=== PATIENT | male | born 1930 | race Caucasian/White ===

== ENCOUNTER 2016-10-29 11:50 | Observation (INO) | payer OTHER, MEDICARE ==
[~2016-10-29] VITALS: Ht 170.2 cm; Wt 79.0 kg
[~2016-10-29 11:50] MED LIST: APIX2.5T PO; ATOR1TAB18 PO; BISO5TAB5 PO; CALC0.25 PO; CLOP75TA PO; FURO1TAB62 PO; ISOS30TA3 PO; LANTUS2P SQ; NOVONP2 SQ; VALS1TAB70 PO
[2016-10-29 11:59] VITALS: BP 129/66; PULSE 57; RESP 16; TEMP 97.5; O2SAT 96
--- NOTE | 2016-10-29 12:26 | PD ---
HPI Chief Complaint: Abnormal Results Time Seen by Provider: 12:10 Travel History International Travel<30 days: No Contact w/Intl Traveler<30days: No Traveled to known affect area: No History of Present Illness HPI The patient is a 86-year-old male who presents to the emergency department after he had a CT pulmonary angiogram performed at an outpatient basis that revealed a pulmonary embolism. The patient is a 1 month history of increasing shortness of breath that is worse with exertion and slightly alleviated at rest. The patient does have a history of shortness of breath secondary to chronic diastolic congestive heart failure, cardiomyopathy, COPD, chronic atrial fibrillation, and deconditioning. However, the patient states his shortness of breath has increased over the last month. The patient states he had an outpatient CT pulmonary angiogram ordered by his primary physician, Dr. Tapia, which revealed a pulmonary embolism within the left lower lobe pulmonary artery branches. The patient denies any known history of DVT or pulmonary embolism. He does have a history of atrial fibrillation and cardiomyopathy and currently takes Eliquis 2.5 mg twice a day as well as Plavix 75 mg daily. The patient denies any chest pain or new cough. He denies any edema to lower extremities. The patient denies any recent hospitalizations, surgeries, or prolonged travel in the last 3 months. PFSH Past Medical History Hx Anticoagulant Therapy: Yes Cancer: No Cardiac Catheterization: Yes (2014) Cardiovascular Problems: Yes (htn on meds, 4 vessels bypass 2004) High Cholesterol: Yes Chest Pain: No Coronary Artery Disease: Yes Diabetes: Yes (type 1) Patient Takes Glucophage: No Diminished Hearing: No Endocrine: Yes Gastrointestinal Disorders: No Glaucoma: No Genitourinary: Yes Hepatitis: No Hiatal Hernia: No Hypertension: Yes Implanted Vascular Access Dvce: No Musculoskeletal: No Neurologic: No Psychiatric: No Reproductive: No Respiratory: Yes (copd) Integumentary: No Renal Failure: Yes (STAGE III) Thyroid Disease: No Past Surgical History Cardiac Surgery: Yes ([address] dinero May 2005) Coronary Artery Bypass Graft: Yes (5 VESSEL) Eye Surgery: Yes (BILAT. CATARACT REMOVAL) Thoracic Surgery: Yes (CABG) Other Surgery: Yes Social History Alcohol Use: Yes (OCC) Tobacco Use: No Substance Use: No Allergies-Medications (Allergen,Severity, Reaction): Coded Allergies: No Known Allergies (Verified , 10/29/16) Reported Meds & Prescriptions Reported Meds & Active Scripts Active Lasix (Furosemide) 20 Mg Tab 20 Mg PO DAILY Reported Lantus Inj (Insulin Glargine) 100 Unit/Ml Inj 25 Units SQ HS Novolin N Inj (Insulin Human NPH) 100 Unit/Ml Inj 10 Units SQ DAILY@1600 Novolin N Inj (Insulin Human NPH) 100 Unit/Ml Inj 12 Units SQ DAILY Atorvastatin (Atorvastatin Calcium) 80 Mg Tab 80 Mg PO HS Valsartan 320 Mg Tab 320 Mg PO DAILY Bisoprolol (Bisoprolol Fumarate) 5 Mg Tab 5 Mg PO BID Eliquis (Apixaban) 2.5 Mg Tab 2.5 Mg PO BID Clopidogrel (Clopidogrel Bisulfate) 75 Mg Tab 75 Mg PO DAILY Calcitriol 0.25 Mcg Cap 0.25 Mcg PO DAILY Isosorbide Mononitrate ER (Isosorbide Mononitrate) 30 Mg Magdi 30 Mg PO DAILY Review of Systems Except as stated in HPI: all other systems reviewed are Neg General / Constitutional: No: Fever HENT: Positive: Lightheadedness Cardiovascular: Positive: Dyspnea on exertion, No: Chest Pain or Discomfort Respiratory: Positive: Shortness of Breath Gastrointestinal: No: Nausea, Vomiting, Abdominal Pain Musculoskeletal: No: Edema Neurologic: Positive: Dizziness Physical Exam Narrative GENERAL: Awake, alert, 86-year-old male who appears his stated age and is in no acute respiratory distress. SKIN: Warm and dry. HEAD: Atraumatic. Normocephalic. EYES: Pupils equal and round. No scleral icterus. No injection or drainage. ENT: No nasal bleeding or discharge. Mucous membranes pink and moist. NECK: Trachea midline. No JVD. CARDIOVASCULAR: Irregular, bradycardic with a heart rate in the 50s. RESPIRATORY: No accessory muscle use. Few crackles in the left base. GASTROINTESTINAL: Abdomen soft, non-tender, nondistended. No rebound tenderness. MUSCULOSKELETAL: No obvious deformities. No clubbing. No cyanosis. No edema. NEUROLOGICAL: Awake and alert. No obvious cranial nerve deficits. Motor grossly within normal limits. Normal speech. PSYCHIATRIC: Appropriate mood and affect; insight and judgment normal. Data Data Last Documented VS Vital Signs Date Time Temp Pulse Resp B/P Pulse Ox O2 Delivery O2 Flow Rate FiO2 10/29/16 13:38 47 20 142/63 95 10/29/16 11:59 97.5 Orders Act Partial Throm Time (Ptt) (10/29/16 12:19) Prothrombin Time / Inr (Pt) (10/29/16 12:19) Complete Blood Count With Diff (10/29/16 12:19) Comprehensive Metabolic Panel (10/29/16 12:19) Troponin I (10/29/16 12:19) Creatine Kinase (Cpk) (10/29/16 12:19) Electrocardiogram (10/29/16 ) Enoxaparin Inj (Lovenox Inj) (10/29/16 12:30) Labs Laboratory Tests Test 10/29/16 12:20 White Blood Count 7.6 TH/MM3 Red Blood Count 3.79 MIL/MM3 Hemoglobin 11.6 GM/DL Hematocrit 34.4 % Mean Corpuscular Volume 90.8 FL Mean Corpuscular Hemoglobin 30.5 PG Mean Corpuscular Hemoglobin 33.7 % Concent Red Cell Distribution Width 15.1 % Platelet Count 218 TH/MM3 Mean Platelet Volume 8.3 FL Neutrophils (%) (Auto) 77.5 % Lymphocytes (%) (Auto) 13.6 % Monocytes (%) (Auto) 6.7 % Eosinophils (%) (Auto) 1.6 % Basophils (%) (Auto) 0.6 % Neutrophils # (Auto) 6.0 TH/MM3 Lymphocytes # (Auto) 1.0 TH/MM3 Monocytes # (Auto) 0.5 TH/MM3 Eosinophils # (Auto) 0.1 TH/MM3 Basophils # (Auto) 0.0 TH/MM3 CBC Comment DIFF FINAL Differential Comment Prothrombin Time 12.0 SEC Prothromb Time International 1.1 RATIO Ratio Activated Partial 28.0 SEC Thromboplast Time Sodium Level 141 MEQ/L Potassium Level 4.5 MEQ/L Chloride Level 108 MEQ/L Carbon Dioxide Level 24.1 MEQ/L Anion Gap 9 MEQ/L Blood Urea Nitrogen 25 MG/DL Creatinine 1.60 MG/DL Estimat Glomerular Filtration 41 ML/MIN Rate Random Glucose 171 MG/DL Calcium Level 8.4 MG/DL Total Bilirubin 0.8 MG/DL Aspartate Amino Transf 21 U/L (AST/SGOT) Alanine Aminotransferase 34 U/L (ALT/SGPT) Alkaline Phosphatase 132 U/L Total Creatine Kinase 136 U/L Troponin I 0.03 NG/ML Total Protein 7.2 GM/DL Albumin 3.2 GM/DL [facility] Medical Decision Making Medical Screen Exam Complete: Yes Emergency Medical Condition: Yes Medical Record Reviewed: Yes Interpretation(s) CT pulmonary angiogram that was performed at [facility] imaging reveals pulmonary embolism within the left lower lobe pulmonary artery branches. Focal consolidation the left lower lobe consistent with atelectasis, infarct, or pneumonia. Small bilateral pleural effusions. Cardiomegaly and coronary artery calcifications. Nonspecific AP window and subcarinal mediastinal lymphadenopathy. Scattered fibrotic scarring within both lungs. EKG reveals atrial fibrillation with slow ventricular response. Prolonged QT interval 550 ms, however, QTC is [address] changes. Laboratory Tests Test 10/29/16 12:20 White Blood Count 7.6 TH/MM3 Red Blood Count 3.79 MIL/MM3 Hemoglobin 11.6 GM/DL Hematocrit 34.4 % Mean Corpuscular Volume 90.8 FL Mean Corpuscular Hemoglobin 30.5 PG Mean Corpuscular Hemoglobin 33.7 % Concent Red Cell Distribution Width 15.1 % Platelet Count 218 TH/MM3 Mean Platelet Volume 8.3 FL Neutrophils (%) (Auto) 77.5 % Lymphocytes (%) (Auto) 13.6 % Monocytes (%) (Auto) 6.7 % Eosinophils (%) (Auto) 1.6 % Basophils (%) (Auto) 0.6 % Neutrophils # (Auto) 6.0 TH/MM3 Lymphocytes # (Auto) 1.0 TH/MM3 Monocytes # (Auto) 0.5 TH/MM3 Eosinophils # (Auto) 0.1 TH/MM3 Basophils # (Auto) 0.0 TH/MM3 CBC Comment DIFF FINAL Differential Comment Prothrombin Time 12.0 SEC Prothromb Time International 1.1 RATIO Ratio Activated Partial 28.0 SEC Thromboplast Time Sodium Level 141 MEQ/L Potassium Level 4.5 MEQ/L Chloride Level 108 MEQ/L Carbon Dioxide Level 24.1 MEQ/L Anion Gap 9 MEQ/L Blood Urea Nitrogen 25 MG/DL Creatinine 1.60 MG/DL Estimat Glomerular Filtration 41 ML/MIN Rate Random Glucose 171 MG/DL Calcium Level 8.4 MG/DL Total Bilirubin 0.8 MG/DL Aspartate Amino Transf 21 U/L (AST/SGOT) Alanine Aminotransferase 34 U/L (ALT/SGPT) Alkaline Phosphatase 132 U/L Total Creatine Kinase 136 U/L Troponin I 0.03 NG/ML Total Protein 7.2 GM/DL Albumin 3.2 GM/DL Differential Diagnosis Differential diagnosis includes pulmonary embolism, DVT, pulmonary infarct, pleural effusion, atelectasis, cardiomyopathy, failed outpatient therapy. Narrative Course IV was established, labs are drawn and sent, and the patient was placed on cardiac telemetry monitoring and continuous pulse oximetry monitoring. Patient did have CT pulmonary angiogram performed an outpatient basis which reveals pulmonary embolism with a left lower lobe pulmonary artery branches. The patient is currently taken Eliquis 2.5 mg twice a day, subtherapeutic dose of Eliquis for pulmonary embolism DVT, however, he was taken for atrial fibrillation. The patient has had exertional shortness of breath, unsure if this is related to pulmonary embolism or underlying cardiomyopathy and pleural effusions. Therefore, the patient was covered with Lovenox 1 mg/kg subcutaneous until labs were obtained, weight was 79 kg, therefore, patient was administered 80 mgs intravenously. The patient's creatinine is mildly elevated at 1.6, GFR is 41. The patient may need an increase in his Eliquis, however, he does have underlying renal insufficiency versus an IVC filter placement as he has been on Eliquis. Therefore, the hospitalist were paged at 1:11 PM. I discussed the patient Dr. Campbell who states the patient's ages over 80 and he has elevated creatinine, is not ideal candidate to be on the full dose of Eliquis for pulmonary embolism/DVT. She recommends discussing the patient with the on-call gravity prospecting supervisor. Therefore, the on-call gravity prospecting supervisor was paged at 1: 19 PM. I had a discussion with Dr. Good who recommends placing the patient on a heparin drip and then bridging to Coumadin. The patient did receive Lovenox in the emergency department, therefore, he recommends not starting heparin for approximately 10 hours and bridging to Coumadin. A call was placed back to Dr. Campbell at 1:47 PM. Physician Communication Physician Communication [facility] were paged for admission. Diagnosis Primary Impression: Pulmonary embolism Qualified Code: I26.99 - Other pulmonary embolism without acute cor pulmonale , unspecified chronicity Admitting Information Admitting Physician Requests: Admit Condition: Stable August Heredia MD Oct 29, 2016 12:26
[2016-10-29] MEDS ORDERED: ENOXAPARIN SODIUM 80 MG/0.8 ML SYRINGE SQ ONE (12:30)
[2016-10-29 12:32] LABS: BASOPHIL % 0.6 % (0.0-2.0); EOSINOPHIL # 0.1 TH/MM3 (0-0.4); EOSINOPHIL % 1.6 % (0.0-4.0); HEMATOCRIT 34.4 % (39.0-51.0); HEMO FLAGS DIFF FINAL; LYMPH % 13.6 % (9.0-44.0); MEAN CELL VOLUME 90.8 FL (80.0-100.0); MEAN CORPUSCULAR HEMOGLOBIN 30.5 PG (27.0-34.0); MEAN CORPUSCULAR HGB CONC 33.7 % (32.0-36.0); MONO % 6.7 % (0.0-8.0); NEUT % 77.5 % (16.0-70.0); PLATELET COUNT 218 TH/MM3 (150-450); RED BLOOD COUNT 3.79 MIL/MM3 (4.50-5.90); RED CELL DISTRIBUTION WIDTH 15.1 % (11.6-17.2); WHITE BLOOD COUNT 7.6 TH/MM3 (4.0-11.0)
[2016-10-29 12:44] VITALS: BP 140/71; PULSE 47; RESP 20; O2SAT 96
[2016-10-29 12:45] LABS: CHLORIDE 108 MEQ/L (98-107); POTASSIUM 4.5 MEQ/L (3.5-5.1); SODIUM (NA) 141 MEQ/L (136-145)
[2016-10-29 12:49] LABS: INTERNATIONAL NORMALIZED RATIO 1.1 RATIO
[2016-10-29 12:52] LABS: ANION GAP 9 MEQ/L (5-15); BICARBONATE 24.1 MEQ/L (21.0-32.0); BLOOD UREA NITROGEN 25 MG/DL (7-18)
[2016-10-29 12:55] LABS: ALT (GPT) 34 U/L (12-78); AST (GOT) 21 U/L (15-37); GLOMERULAR FILTRATION RATE 41 ML/MIN (>89)
[2016-10-29 12:57] LABS: TOTAL BILIRUBIN ADULT 0.8 MG/DL (0.2-1.0)
[2016-10-29 12:58] LABS: ALKALINE PHOSPHATASE 132 U/L (45-117); CREATINE KINASE 136 U/L (39-308)
[2016-10-29 13:38] VITALS: BP 142/63; PULSE 47; RESP 20; O2SAT 95
[2016-10-29 14:33] VITALS: BP 141/62; PULSE 44; RESP 20; O2SAT 95
--- NOTE | 2016-10-29 15:13 | HHI.HP ---
[facility] Service [facility] Primary Care Physician Angelito Tapia MD Admission Diagnosis pulmonary embolism, chronic renal insufficiency Diagnoses: (1) Pulmonary embolism (2) Chronic kidney disease, stage 3 Travel History International Travel<30 Days: No Contact w/Intl Traveler <30 Da: No Traveled to Known Affected Are: No History of Present Illness This is a pleasant 86 year-old male with past medical history of coronary artery disease status post CABG, chronic kidney disease, who presents to the ER last night on the advice of his primary care physician. Apparently the patient had been having progressive dyspnea over the past month and an outpatient CTA was ordered which showed a pulmonary embolism at the left lower lobe pulmonary artery branches. The patient is stable on room air. He takes Eliquis 2.5 mg by mouth twice a day as an outpatient. He is also on Plavix. He does note that he has chronic swelling in his right lower extremity and that he takes a water pill for this. Otherwise denies hemoptysis. 10 point review systems otherwise negative. His entry clerk is Dr. Frazier. His heart rate in the ER is in the mid 50s. He is on Coreg. Review of Systems Constitutional: DENIES: Fever, Chills Ears, nose, mouth, throat: DENIES: Throat pain, Hoarseness Respiratory: COMPLAINS OF: Shortness of breath, DENIES: Cough Cardiovascular: COMPLAINS OF: Dyspnea on Exertion, Lower Extremity Edema, DENIES: Chest pain Gastrointestinal: DENIES: Nausea, Vomiting Genitourinary: DENIES: Hematuria Musculoskeletal: DENIES: Stiffness, Joint Swelling Integumentary: DENIES: Rash Hematologic/lymphatic: DENIES: Lymphadenopathy Neurologic: DENIES: Abnormal gait Psychiatric: DENIES: Anxiety, Confusion Past Family Social History Past Medical History Coronary artery disease Peripheral vascular disease Hypertension Hyperlipidemia Stage III CKD Paroxysmal atrial fibrillation Chronic Diastolic CHF Past Surgical History Cardiac catheterization 10-21-15 after abnormal nuclear study. Ablation for A. fib and atrial tach was performed. 5 vessel CABG, May 2005. PVD surgery right foot Bilateral cataract removal Allergies: Coded Allergies: No Known Allergies (Verified , 10/29/16) Family History Reviewed and noncontributory Social History He smoked briefly 60 years ago Physical Exam Vital Signs Vital Signs Date Time Temp Pulse Resp B/P Pulse Ox O2 Delivery O2 Flow Rate FiO2 10/29/16 14:33 44 20 141/62 95 10/29/16 13:38 47 20 142/63 95 10/29/16 12:44 47 20 140/71 96 10/29/16 11:59 97.5 57 16 129/66 96 Physical Exam GENERAL: Well-nourished, well-developed very pleasant elderly male patient. SKIN: Warm and dry. HEAD: Normocephalic. EYES: No scleral icterus. No injection or drainage. NECK: Supple, trachea midline. No JVD or lymphadenopathy. CARDIOVASCULAR: Regular rate and rhythm without murmurs, gallops, or rubs. RESPIRATORY: Breath sounds equal bilaterally. No accessory muscle use. GASTROINTESTINAL: Abdomen soft, non-tender, nondistended. EXTREMITIES: Trace pedal edema. NEUROLOGICAL: Awake, alert, and oriented x 3. Non-focal. Laboratory Laboratory Tests Test 10/29/16 12:20 White Blood Count 7.6 Red Blood Count 3.79 Hemoglobin 11.6 Hematocrit 34.4 Mean Corpuscular Volume 90.8 Mean Corpuscular Hemoglobin 30.5 Mean Corpuscular Hemoglobin 33.7 Concent Red Cell Distribution Width 15.1 Platelet Count 218 Mean Platelet Volume 8.3 Neutrophils (%) (Auto) 77.5 Lymphocytes (%) (Auto) 13.6 Monocytes (%) (Auto) 6.7 Eosinophils (%) (Auto) 1.6 Basophils (%) (Auto) 0.6 Neutrophils # (Auto) 6.0 Lymphocytes # (Auto) 1.0 Monocytes # (Auto) 0.5 Eosinophils # (Auto) 0.1 Basophils # (Auto) 0.0 CBC Comment DIFF FINAL Differential Comment Prothrombin Time 12.0 Prothromb Time International 1.1 Ratio Activated Partial 28.0 Thromboplast Time Sodium Level 141 Potassium Level 4.5 Chloride Level 108 Carbon Dioxide Level 24.1 Anion Gap 9 Blood Urea Nitrogen 25 Creatinine 1.60 Estimat Glomerular Filtration 41 Rate Random Glucose 171 Calcium Level 8.4 Total Bilirubin 0.8 Aspartate Amino Transf 21 (AST/SGOT) Alanine Aminotransferase 34 (ALT/SGPT) Alkaline Phosphatase 132 Total Creatine Kinase 136 Troponin I 0.03 Total Protein 7.2 Albumin 3.2 Result Diagram: 1/5/17 1220 10/29/16 1220 Assessment and Plan Assessment and Plan Pulmonary embolism in the right lower lobe. We'll observe the patient overnight. His renal function has been stable reviewing his records and he can be treated with Lovenox and Coumadin. Unfortunately he cannot be treated with the higher dose of Eliquis due to his age and renal function. Patient is stable on room air. Coronary artery disease - will hold his beta kadie as his pulse is running slightly low. Peripheral vascular disease - will discuss blood thinners with his entry clerk Dr. Frazier tomorrow as the patient is on Plavix and will now be on Coumadin. Hypertension - hold beta kadie as above. Hyperlipidemia Stage III CKD - repeat BMP in the morning. Paroxysmal atrial fibrillation - currently in sinus rhythm although rate is running slow. We'll hold bisoprolol. Continue telemetry. Coumadin as above. Chronic Diastolic CHF - continue Lasix. Problem Qualifiers (1) Pulmonary embolism: Qualified Code: I26.99 - Other pulmonary embolism without acute cor pulmonale, unspecified chronicity Katharine Campbell MD Oct 29, 2016 15:13
[2016-10-29] MEDS ORDERED: MAGNESIUM HYDROXIDE SUSP 30 ML CUP PO PRN (15:15)
[2016-10-29] MEDS ORDERED: SODIUM CHLORIDE 0.9% FLUSH 5 ML FLUSH FLUSH PRN (15:15)
[2016-10-29] MEDS ORDERED: ONDANSETRON HCL 4 MG/2 ML VIAL IVP PRN (15:15)
[2016-10-29] MEDS ORDERED: ACETAMINOPHEN 325 MG TAB PO PRN (15:15)
[2016-10-29] MEDS ORDERED: NALOXONE HCL 0.4 MG/ML AMP IV PRN (15:15)
[2016-10-29] MEDS ORDERED: DEXTROSE 50% IN WATER 50 ML VIAL(D50) IV PUSH PRN (15:15)
[2016-10-29] MEDS ORDERED: GLUCAGON 1 MG/ML VIAL OTHER PRN (15:15)
[2016-10-29] MEDS: INSULIN ASPART SUPPLEMENTAL SCALE SQ SCH ×2 (16:00→20:58)
[2016-10-29] MEDS ORDERED: WARFARIN SOD 2.5 MG TAB PO SCH (16:00)
[2016-10-29 17:23] VITALS: BP 162/75; PULSE 56; RESP 18; TEMP 97; O2SAT 96
[2016-10-29 20:00] VITALS: BP 130/66; PULSE 52; PULSE 53; RESP 20; TEMP 96.9; O2SAT 94
[2016-10-29] MEDS: SODIUM CHLORIDE 0.9% FLUSH 5 ML FLUSH FLUSH SCH (21:00)
[2016-10-29] MEDS ORDERED: ATORVASTATIN 40 MG TAB PO SCH (21:00)
[2016-10-30] VITALS: BP 140/80; PULSE 55; RESP 20; TEMP 96.9; O2SAT 93
[2016-10-30] MEDS: ENOXAPARIN SODIUM 80 MG/0.8 ML SYRINGE SQ SCH ×2 (00:20→11:44)
[2016-10-30 04:00] VITALS: BP 136/68; PULSE 55; RESP 20; TEMP 95.7; O2SAT 94
[2016-10-30 05:39] LABS: POTASSIUM 4.7 MEQ/L (3.5-5.1)
[2016-10-30 05:43] LABS: BICARBONATE 26.4 MEQ/L (21.0-32.0)
[2016-10-30] MEDS: INSULIN ASPART SUPPLEMENTAL SCALE SQ SCH ×2 (06:14→11:44)
[2016-10-30 08:00] VITALS: BP 178/80; PULSE 53; PULSE 60; RESP 16; TEMP 97.9; O2SAT 94
[2016-10-30] MEDS: SODIUM CHLORIDE 0.9% FLUSH 5 ML FLUSH FLUSH SCH (08:42)
[2016-10-30] MEDS ORDERED: CALCITRIOL 0.25 MCG CAP PO SCH (09:00)
[2016-10-30] MEDS ORDERED: VALSARTAN 160 MG TAB PO SCH (09:00)
[2016-10-30] MEDS ORDERED: FUROSEMIDE 20 MG TAB PO SCH (09:00)
[2016-10-30] MEDS ORDERED: ISOSORBIDE MONONITRATE 30 MG TAB PO SCH (09:00)
[2016-10-30] MEDS ORDERED: ENOX80P SQ (09:53)
[2016-10-30] MEDS ORDERED: COUM5TAB PO (09:53)
[2016-10-30 10:04] LABS: INTERNATIONAL NORMALIZED RATIO 1.1 RATIO; PROTHROMBIN TIME - PATIENT 12.1 SEC (9.8-11.6)
--- NOTE | 2016-10-30 11:49 | HHI.PR ---
Subjective Remarks Patient doing well, does not have dyspnea. HR in 50s. No lightheadedness or dizziness. Pt's son has factor V leiden and pt states he has 1 copy of the gene. Objective Vitals Vital Signs Date Time Temp Pulse Resp B/P Pulse Ox O2 Delivery O2 Flow Rate FiO2 10/30/16 08:00 97.9 53 16 178/80 94 10/30/16 08:00 60 10/30/16 04:00 95.7 55 20 136/68 94 10/30/16 00:00 96.9 55 20 140/80 93 10/29/16 20:00 53 10/29/16 20:00 96.9 52 20 130/66 94 10/29/16 17:23 97.0 56 18 162/75 96 10/29/16 14:33 44 20 141/62 95 10/29/16 13:38 47 20 142/63 95 10/29/16 12:44 47 20 140/71 96 10/29/16 11:59 97.5 57 16 129/66 96 I/O 10/29/16 10/29/16 10/29/16 10/30/16 10/30/16 10/30/16 07:00 15:00 23:00 07:00 15:00 23:00 Intake Total 258 ml 480 ml Output Total 300 ml 300 ml Balance -42 ml 180 ml Intake Oral 258 ml 480 ml Output Urine Total 300 ml 300 ml # Voids 1 # Bowel Movements 0 0 Result Diagram: 10/29/16 1220 10/30/16 0515 Objective Remarks GENERAL: Well-nourished, well-developed pleasant elderly CM patient in NAD SKIN: Warm and dry. HEAD: Normocephalic. EYES: No scleral icterus. No injection or drainage. NECK: Supple, trachea midline. No JVD or lymphadenopathy. CARDIOVASCULAR: irregular rate and rhythm without murmurs, gallops, or rubs. RESPIRATORY: Breath sounds equal bilaterally. No accessory muscle use. GASTROINTESTINAL: Abdomen soft, non-tender, nondistended. EXTREMITIES: No cyanosis, or edema. NEUROLOGICAL: Awake, alert, and oriented x 3. Non-focal. A/P Problem List: (1) Pulmonary embolism ICD Code: I26.99 Status: Acute (2) Chronic kidney disease, stage 3 ICD Code: N18.3 Status: Acute Assessment and Plan -Pulmonary embolism in the right lower lobe. Patient previously on Eliquis 2.5 mg by mouth twice a day for history of A. fib. Patient has been stable overnight. His renal function has been stable reviewing his records and he can be treated with Lovenox and Coumadin. I discussed this with his primary care physician Dr. Tapia who has agreed to follow the INRs. Patient is comfortable injecting his Lovenox. -Coronary artery disease - DC beta kadie as his pulse is running low. Start on baby aspirin. -Peripheral vascular disease -DC Plavix and start on baby aspirin. -Hypertension - hold beta kadie as above. -Hyperlipidemia -Stage III CKD -stable on repeat BMP today. -Paroxysmal atrial fibrillation - patient had EKG showing A. fib in the ER. The patient had an ablation one year ago with Dr. Casey. I discussed the patient with Dr. Rodriguez and let him know about the bradycardia. Dr. Rodriguez recommends the patient go on amiodarone 200 mg and to DC that bisoprolol. Currently in sinus rhythm although rate is running slow. We'll hold bisoprolol. Continue telemetry. Coumadin as above. -Type 2 diabetes. Somehow patient is on both Levemir and NPH at home. His tells me that the NPH is too expensive and so the [facility] prescribed him Lantus. I discussed with PCP Dr. Tapia who wants the patient to be only on one type of insulin. Discussed with via phone that patient should be on only 10 units of Lantus at night and to DC the novolin. -Chronic Diastolic CHF - continue Lasix. Discharge home today. Follow-up with PCP next week. Problem Qualifiers (1) Pulmonary embolism: Qualified Code: I26.99 - Other pulmonary embolism without acute cor pulmonale, unspecified chronicity Katharine Campbell MD Oct 30, 2016 11:49
[2016-10-30] MEDS ORDERED: ASPI81TA11 PO (11:50)
[2016-10-30] MEDS ORDERED: AMIO200T PO (11:50)
[2016-10-30 12:00] VITALS: BP 168/78; PULSE 60; RESP 16; TEMP 98; O2SAT 99
[2016-10-30] MEDS ORDERED: AMIODARONE 200 MG TAB PO SCH (12:00)
--- NOTE | 2016-10-30 12:23 | HHI.DCPOC ---
Discharge Care Plan Diagnosis: (1) Pulmonary embolism (2) Atrial fibrillation Goals to Promote Your Health * To prevent worsening of your condition and complications * To maintain your health at the optimal level Directions to Meet Your Goals STOP taking elilquis and bisoprolol. START taking amiodarone and lovenox injections. CALL Dr. Grey's office and Dr. Casey's office for appointments to be seen next week. GO TO the lab to get your blood drawn for coumadin level ("PT/INR")n Wednesday. DO NOT START TAKING coumadin until WednesdayNov 02. CALL Dr. Tapia for any questions. Katharine Campbell MD Oct 30, 2016 12:23
--- NOTE | 2016-10-30 14:34 | EKG ---
Date Performed: 10/29/2016 Time Performed: 12:25:58 PTAGE: 86 years EKG: Atrial fibrillation with slow ventricular response Prolonged QT interval Septal and lateral ST-T changes are nonspecific Abnormal ECG PREVIOUS TRACING : 10/23/2016 16.17 Since previous tracing, no significant change noted DOCTOR: Yaa Olson Interpretating Date/Time 10/30/2016 14:24:42
[2016-10-30] MEDS ORDERED: LANTUS2P SQ (15:55)
[2016-10-30] MEDS ORDERED: WARFARIN SOD 7.5 MG TAB PO ONE (16:00)
[2016-10-31] MEDS ORDERED: WARFARIN SOD 2.5 MG TAB PO SCH (16:00)
[2017-04-18] MEDS ORDERED: CEPH-459 PO (17:35)
[2017-04-18] MEDS ORDERED: NORC5TAB PO (17:35)
== END 2016-10-30 15:03 | disposition home or self-care (01) ==
LOC: PHED 11:50 → PHEDA 14:31 → INTOOBSV 14:31 → PH3B 15:42
PROVIDERS: ADMIT Family Medicine; ATTEND Family Medicine
DX: I26.99 Other pulmonary embolism without acute cor pulmonale (principal); I48.0 Paroxysmal atrial fibrillation; I48.2 Chronic atrial fibrillation; I42.9 Cardiomyopathy, unspecified; I13.0 Hypertensive heart and chronic kidney disease with heart failure and stage 1 through stage 4 chronic kidney disease, or unspecified chronic kidney disease; I50.32 Chronic diastolic (congestive) heart failure; I25.10 Atherosclerotic heart disease of native coronary artery without angina pectoris; I73.9 Peripheral vascular disease, unspecified; N18.3 Chronic kidney disease, stage 3 (moderate); J44.9 Chronic obstructive pulmonary disease, unspecified; E78.5 Hyperlipidemia, unspecified; E10.22 Type 1 diabetes mellitus with diabetic chronic kidney disease; R06.02 Shortness of breath; R60.1 Generalized edema; Z79.01 Long term (current) use of anticoagulants; Z79.4 Long term (current) use of insulin; Z95.1 Presence of aortocoronary bypass graft
CPT/HCPCS: 80048; 80053; 82550; 82948; 84484; 85025; 85610; 85730; 93005; 96372; 99284; G0378; J1650; J1815

== ENCOUNTER 2016-11-11 13:06 | Observation (INO) | payer MEDICARE, OTHER ==
[2016-11-11] VITALS (7 sets, daily range): BP systolic 114–150; BP diastolic 53–71; PULSE 66–73; RESP 18; TEMP 98.3–98.9; O2SAT 96–99
[~2016-11-11] VITALS: Ht 170.2 cm; Wt 76.6 kg
[~2016-11-11 13:06] MED LIST changes: +AMIO200T PO; -APIX2.5T PO; +ASPI81TA11 PO; -BISO5TAB5 PO; -CLOP75TA PO; +COUM5TAB PO; +ENOX80P SQ; -NOVONP2 SQ
--- NOTE | 2016-11-11 17:31 | RADHPO ---
EXAM DATE/TIME: 11/11/2016 17:19 [facility] COMPARISON: CHEST SINGLE AP, October 23, 2016, 16:21. INDICATIONS : Cough, shortness of breath for 3 days MEDICAL HISTORY : Cardiovascular disease. Blood clots in lungs SURGICAL HISTORY : CABG. ENCOUNTER: Initial ACUITY: 3 days PAIN SCORE: 0/10 LOCATION: Bilateral chest FINDINGS: PA lateral views of the chest demonstrate stable postsurgical changes related to prior CABG. Stable l arge left-sided pleural effusion. Given the stability from the prior exam this may be loculated. Righ t hemithorax is clear. Heart size is mildly enlarged. CONCLUSION: Stable exam. Given the stability of the left-sided pleural effusion this may be loculated.. Jessie Green MD on November 11, 2016 at 17:29 Board Certified Radiologist. This report was verified electronically.
[2016-11-11 17:59] LABS: AUTOMATED NEUTROPHIL # 5.8 TH/MM3 (1.8-7.7); BASOPHIL # 0.1 TH/MM3 (0-0.2); EOSINOPHIL # 0.1 TH/MM3 (0-0.4); EOSINOPHIL % 1.1 % (0.0-4.0); HEMATOCRIT 34.3 % (39.0-51.0); HEMO FLAGS DIFF FINAL; LYMPH % 15.4 % (9.0-44.0); LYMPHOCYTE # 1.3 TH/MM3 (1.0-4.8); MEAN CORPUSCULAR HEMOGLOBIN 30.2 PG (27.0-34.0); MEAN CORPUSCULAR HGB CONC 32.5 % (32.0-36.0); MONO % 11.4 % (0.0-8.0); NEUT % 71.1 % (16.0-70.0); PLATELET COUNT 265 TH/MM3 (150-450); RED BLOOD COUNT 3.69 MIL/MM3 (4.50-5.90); WHITE BLOOD COUNT 8.2 TH/MM3 (4.0-11.0)
[2016-11-11] MEDS ORDERED: LANTUS2P SQ (18:00)
[2016-11-11] MEDS ORDERED: NOVORP2 SQ (18:00)
--- NOTE | 2016-11-11 18:01 | PD ---
HPI Chief Complaint: Respiratory Symptoms Time Seen by Provider: 16:59 Travel History International Travel<30 days: No Contact w/Intl Traveler<30days: No Traveled to known affect area: No History of Present Illness HPI 86-year-old male presents with cough and dyspnea on exertion. He states that he was here recently with a blood clot and stopped his Lovenox on the 14th of this month sentences INR level was 2.1 then. He states the last time he had it checked was yesterday and it was 2.6 on his Coumadin. He states he called his primary care physician who advised him to come here for further care. He states he feels worse when he moves around. He denies other modifying factors. He denies any chest pain or other concurrent complaints. Quality is hard to catch breath with movement. Severity is worsening. Duration is couple of days. PFSH Past Medical History Hx Anticoagulant Therapy: Yes (WARFARIN) Asthma: No Heart Rhythm Problems: Yes (afib) Cancer: No Cardiac Catheterization: Yes (2014) Cardiovascular Problems: Yes (htn on meds, 4 vessels bypass 2004) High Cholesterol: Yes Chest Pain: No Congestive Heart Failure: Yes COPD: Yes Coronary Artery Disease: Yes Diabetes: Yes (type 1) Patient Takes Glucophage: No Diminished Hearing: No Endocrine: Yes Gastrointestinal Disorders: No GERD: No Glaucoma: No Genitourinary: Yes Hepatitis: No Hiatal Hernia: No Hypertension: Yes Implanted Vascular Access Dvce: Yes Kidney Stones: No Musculoskeletal: No Neurologic: No Psychiatric: No Reproductive: No Respiratory: Yes (copd) Integumentary: No Renal Failure: Yes (STAGE III) Sickle Cell Disease: No Sleep Apnea: No Thyroid Disease: No Ulcer: No Past Surgical History Abdominal Surgery: No Body Medical Devices: stent in right leg Cardiac Surgery: Yes ([address] dinero May 2005) Coronary Artery Bypass Graft: Yes (5 VESSEL) Eye Surgery: Yes (BILAT. CATARACT REMOVAL) Genitourinary Surgery: No Neurologic Surgery: No Thoracic Surgery: Yes (CABG) Other Surgery: Yes Social History Alcohol Use: Yes (OCC) Tobacco Use: No (quit 60 years ago) Substance Use: No Allergies-Medications (Allergen,Severity, Reaction): Coded Allergies: No Known Allergies (Verified , 10/29/16) Reported Meds & Prescriptions Reported Meds & Active Scripts Active Amiodarone (Amiodarone HCl) 200 Mg Tab 200 Mg PO DAILY Aspirin EC (Aspirin) 81 Mg Tabdr 81 Mg PO DAILY Coumadin (Warfarin) 5 Mg Tab 5 Mg PO DAILY START ON Wednesday11/02/2016 Reported Novolin R Inj (Insulin Human Regular) 1,000 Unit/10 Ml Vial 5 Units SQ TIDAC Lantus Inj (Insulin Glargine) 1,000 Unit/10 Ml Vial 23 Units SQ AC BREAKFAST Atorvastatin (Atorvastatin Calcium) 80 Mg Tab 80 Mg PO HS Valsartan 320 Mg Tab 320 Mg PO DAILY Calcitriol 0.25 Mcg Cap 0.25 Mcg PO DAILY Isosorbide Mononitrate ER (Isosorbide Mononitrate) 30 Mg Magdi 30 Mg PO DAILY Review of Systems Except as stated in HPI: all other systems reviewed are Neg Physical Exam Narrative GENERAL: Well-nourished, well-developed patient. SKIN: Warm and dry. HEAD: Normocephalic and atraumatic. EYES: No injection or drainage. ENT: No nasal drainage noted. NECK: Supple, trachea midline. CARDIOVASCULAR: irregular rate and rhythm RESPIRATORY: Breath sounds equal bilaterally at apices. No accessory muscle use. GASTROINTESTINAL: Abdomen soft, non-tender, nondistended. EXTREMITIES: No edema. NEUROLOGICAL: Awake and alert. Motor and sensory grossly within normal limits. Normal speech. Data Data Last Documented VS Vital Signs Date Time Temp Pulse Resp B/P Pulse Ox O2 Delivery O2 Flow Rate FiO2 11/11/16 17:52 99 Room Air 11/11/16 13:23 98.3 73 18 150/71 Orders Complete Blood Count With Diff (11/11/16 17:10) Basic Metabolic Panel (Bmp) (11/11/16 17:10) B-Type Natriuretic Peptide (11/11/16 17:10) Chest, Pa & Lat (11/11/16 ) Electrocardiogram (11/11/16 ) Iv Access Insert/Monitor (11/11/16 17:10) Ecg Monitoring (11/11/16 17:10) Oximetry (11/11/16 17:10) Ct Thorax/ Chest Wo Iv Contras (11/11/16 ) Prothrombin Time / Inr (Pt) (11/11/16 17:51) Act Partial Throm Time (Ptt) (11/11/16 17:51) Blood Culture (11/11/16 18:44) Sodium Chloride 0.9% Flush (Ns Flush) (11/11/16 18:45) Ceftriaxone Inj (Rocephin Inj) (11/11/16 18:45) Azithromycin Inj (Zithromax Inj) (11/11/16 18:45) Admit Order (Ed Use Only) (11/11/16 19:12) Labs Laboratory Tests Test 11/11/16 17:50 White Blood Count 8.2 TH/MM3 Red Blood Count 3.69 MIL/MM3 Hemoglobin 11.1 GM/DL Hematocrit 34.3 % Mean Corpuscular Volume 93.0 FL Mean Corpuscular Hemoglobin 30.2 PG Mean Corpuscular Hemoglobin 32.5 % Concent Red Cell Distribution Width 16.0 % Platelet Count 265 TH/MM3 Mean Platelet Volume 8.6 FL Neutrophils (%) (Auto) 71.1 % Lymphocytes (%) (Auto) 15.4 % Monocytes (%) (Auto) 11.4 % Eosinophils (%) (Auto) 1.1 % Basophils (%) (Auto) 1.0 % Neutrophils # (Auto) 5.8 TH/MM3 Lymphocytes # (Auto) 1.3 TH/MM3 Monocytes # (Auto) 0.9 TH/MM3 Eosinophils # (Auto) 0.1 TH/MM3 Basophils # (Auto) 0.1 TH/MM3 CBC Comment DIFF FINAL Differential Comment Prothrombin Time 23.5 SEC Prothromb Time International 2.1 RATIO Ratio Activated Partial 39.7 SEC Thromboplast Time Sodium Level 136 MEQ/L Potassium Level 4.6 MEQ/L Chloride Level 103 MEQ/L Carbon Dioxide Level 22.1 MEQ/L Anion Gap 11 MEQ/L Blood Urea Nitrogen 27 MG/DL Creatinine 1.50 MG/DL Estimat Glomerular Filtration 45 ML/MIN Rate Random Glucose 234 MG/DL Calcium Level 8.6 MG/DL B-Type Natriuretic Peptide 303 PG/ML MDM Medical Decision Making Medical Screen Exam Complete: Yes Emergency Medical Condition: Yes Medical Record Reviewed: Yes (past history confirmed, recent hospitalization reviewed with PE) Interpretation(s) EKG with atrial fibrillation at 62 without STEMI criteria CBC & BMP Diagram 11/11/16 17:50 Last 24 hours Impressions Chest X-Ray 11/11/16 0000 Signed Impressions: Service Date/Time: Friday, November 11, 2016 17:19 - CONCLUSION: Stable exam. Given the stability of the left-sided pleural effusion this may be loculated.. Jessie Green MD Chest CT 11/11/16 0000 Signed Impressions: Service Date/Time: Friday, November 11, 2016 18:15 - CONCLUSION: 1. Left basal consolidation likely pneumonia. 2. Left pleural effusion which is complex and contains hyperdense material. 3. Tiny right pleural effusion. 4. Status post CABG. Gucci Shields MD Discuss CAT scan with the radiologist and gave history and he states given INR is elevated they would not drain area of possible loculation and could be blood given on Coumadin with recent PE. Area could also be infarct and recommends observation in [place] with pulmonary Differential Diagnosis CHF exacerbation, renal failure, anemia, pneumonia, subtherapeutic INR.... Narrative Course Will check blood work, chest x-ray and reevaluate. CAT scan with possible loculated effusion will check CT chest CT chest shows loculated area possible pneumonia. Patient without fever, white count so likely infarct versus effusion or hemothorax or atelectasis. Patient' s INR is stable. Hemoglobin is stable. Renal function is stable but did not want to give additional IV contrast as already therapeutic on Coumadin. Patient gets short of breath when he walks a couple of steps, will discuss CAT scan with radiologist Patient agrees to observation Physician Communication Physician Communication dr mendez agrees to observation Diagnosis Primary Impression: Pleural effusion on left Additional Impression: Dyspnea Qualified Code: R06.00 - Dyspnea, unspecified type Admitting Information Admitting Physician Requests: Observation Karla Carrasco MD Nov 11, 2016 18:01
[2016-11-11 18:11] LABS: POTASSIUM 4.6 MEQ/L (3.5-5.1)
[2016-11-11 18:14] LABS: BICARBONATE 22.1 MEQ/L (21.0-32.0)
[2016-11-11 18:31] LABS: APTT (PATIENT) 39.7 SEC (24.3-30.1); INTERNATIONAL NORMALIZED RATIO 2.1 RATIO; PROTHROMBIN TIME - PATIENT 23.5 SEC (9.8-11.6)
--- NOTE | 2016-11-11 18:36 | RADHPO ---
EXAM DATE/TIME: 11/11/2016 18:15 [facility] COMPARISON: CHEST PA & LAT, November 11, 2016, 17:19. INDICATIONS : Cough with shortness of breath. RADIATION DOSE: 11.15 CTDIvol (mGy) MEDICAL HISTORY : Chronic obstructive pulmonary disease. Hypertension. Congestive heart failure. Coronary artery diseas e. Diabetes type I. SURGICAL HISTORY : CABG ENCOUNTER: Initial ACUITY: 1 day PAIN SCALE: 0/10 LOCATION: chest TECHNIQUE: Volumetric scanning of the chest was performed. Using automated exposure control and adjustment of t he mA and/or kV according to patient size, radiation dose was kept as low as reasonably achievable to obtain optimal diagnostic quality images. FINDINGS: LUNGS: There is left basilar consolidation. Minimal scarring in the upper lobes. PLEURAE: Small left pleural effusion containing hyperdense material. There is tiny right pleural effusion. MEDIASTINUM: The heart and great vessels demonstrate no acute abnormality. There is no mediastinal or hilar lymph adenopathy. Status post CABG. Calcified mediastinal lymph nodes likely the result of previous grade o f this disease. AXILLAE: Within normal limits. No lymphadenopathy. MUSCULOSKELETAL: Within normal limits for patient age. MISCELLANEOUS: The visualized upper abdominal organs demonstrate no acute abnormality. CONCLUSION: 1. Left basal consolidation likely pneumonia. 2. Left pleural effusion which is complex and contains hyperdense material. 3. Tiny right pleural effusion. 4. Status post CABG. Gucci Shields MD on November 11, 2016 at 18:31 Board Certified Radiologist. This report was verified electronically.
[2016-11-11] MEDS ORDERED: SODIUM CHLORIDE 0.9% FLUSH 5 ML FLUSH IVF PRN (18:45)
[2016-11-11] MEDS ORDERED: cefTRIAXone INJ 1,000 MG in SODIUM CHLORIDE 0.9% INJ 100 ML IV ONE (18:45)
[2016-11-11] MEDS ORDERED: AZITHROMYCIN INJ 500 MG in SODIUM CHLOR 0.9% 250 ML INJ 250 ML IV ONE (18:45)
[2016-11-11] MEDS ORDERED: NALOXONE HCL 0.4 MG/ML AMP IV PRN (19:45)
[2016-11-11] MEDS ORDERED: ONDANSETRON HCL 4 MG/2 ML VIAL IVP PRN (19:45)
[2016-11-11] MEDS ORDERED: SODIUM CHLORIDE 0.9% FLUSH 5 ML FLUSH FLUSH PRN (19:45)
[2016-11-11] MEDS: SODIUM CHLORIDE 0.9% FLUSH 5 ML FLUSH FLUSH SCH (20:17)
[2016-11-11] MEDS ORDERED: GLUCAGON 1 MG/ML VIAL OTHER PRN (21:00)
[2016-11-11] MEDS ORDERED: ATORVASTATIN 80 MG TAB PO SCH (21:00)
[2016-11-11] MEDS ORDERED: DEXTROSE 50% IN WATER 50 ML VIAL(D50) IV PUSH PRN (21:00)
[2016-11-11] MEDS: ATORVASTATIN 40 MG TAB PO SCH (21:32)
[2016-11-11] MEDS: INSULIN ASPART SUPPLEMENTAL SCALE SQ SCH (22:56)
[2016-11-11 23:25] LABS: HEMATOCRIT 29.5 % (39.0-51.0); REVIEW FLAG FINAL
[2016-11-12] VITALS (7 sets, daily range): BP systolic 128–151; BP diastolic 69–76; PULSE 58–95; RESP 18; TEMP 96.6–98.7; O2SAT 94–96
[2016-11-12] MEDS: INSULIN ASPART SUPPLEMENTAL SCALE SQ SCH ×4 (06:08→20:31)
[2016-11-12 06:15] LABS: AUTOMATED NEUTROPHIL # 4.5 TH/MM3 (1.8-7.7); BASOPHIL % 0.5 % (0.0-2.0); EOSINOPHIL # 0.1 TH/MM3 (0-0.4); EOSINOPHIL % 1.9 % (0.0-4.0); HEMATOCRIT 28.2 % (39.0-51.0); HEMO FLAGS DIFF FINAL; LYMPH % 16.8 % (9.0-44.0); LYMPHOCYTE # 1.1 TH/MM3 (1.0-4.8); MEAN CELL VOLUME 90.3 FL (80.0-100.0); MEAN CORPUSCULAR HEMOGLOBIN 29.4 PG (27.0-34.0); MEAN CORPUSCULAR HGB CONC 32.6 % (32.0-36.0); MONO % 13.3 % (0.0-8.0); NEUT % 67.5 % (16.0-70.0); PLATELET COUNT 237 TH/MM3 (150-450); RED BLOOD COUNT 3.12 MIL/MM3 (4.50-5.90); RED CELL DISTRIBUTION WIDTH 15.4 % (11.6-17.2); WHITE BLOOD COUNT 6.6 TH/MM3 (4.0-11.0)
[2016-11-12 06:29] LABS: POTASSIUM 4.5 MEQ/L (3.5-5.1)
[2016-11-12 06:30] LABS: BICARBONATE 23.9 MEQ/L (21.0-32.0)
[2016-11-12] MEDS: AMIODARONE 200 MG TAB PO SCH (08:56)
[2016-11-12] MEDS: SODIUM CHLORIDE 0.9% FLUSH 5 ML FLUSH FLUSH SCH ×2 (08:56→20:33)
[2016-11-12] MEDS: VALSARTAN 160 MG TAB PO SCH (08:56)
[2016-11-12] MEDS: ISOSORBIDE MONONITRATE 30 MG TAB PO SCH (08:56)
[2016-11-12] MEDS: ASPIRIN EC 81 MG TABEC PO SCH (08:56)
[2016-11-12] MEDS ORDERED: LEVOFLOXACIN 750 MG PREMIX INJ 150 ML IV SCH (09:00)
--- NOTE | 2016-11-12 11:50 | HHI.HP ---
[facility] Service [facility] Primary Care Physician Angelito Tapia MD Admission Diagnosis dyspnea on exertion, pleural effusion Diagnoses: Travel History International Travel<30 Days: No Contact w/Intl Traveler <30 Da: No Traveled to Known Affected Are: No History of Present Illness This is a very pleasant 86 year-old male known to me from previous hospital admission who has a past medical history of pulmonary embolism recently and was placed on Coumadin for this, chronic kidney disease, coronary artery disease status post CABG in the past, peripheral vascular disease with a stent in the right lower extremity who presented to the ER last night complaining of shortness of breath. The patient has been having intermittent shortness of breath ongoing for several months. He had been following with a stock taker for this. It was his primary care physician who discovered the pulmonary embolism in the outpatient setting. When he was admitted here he had a CTA showing multiple pulmonary embolism with probable pulmonary infarct. The patient states that he has been told that he had a mild pleural effusion which was seen during his previous hospitalization but was told by his stock taker that there was not enough fluid to tap. Patient states that he did feel much better after being started on the Coumadin and Lovenox and had been doing well until yesterday when getting up and walking a short distance to the bathroom he was severely winded. For this reason he presented to the ER. The patient denies cough, fever, chills. Denies any increased leg swelling. His INR is therapeutic at 2.1. He called his primary care physician's office and he was told by the answering nurse that he should go to the emergency department. This morning he states he feels much better. He has remained stable on room air. CT and emergency department shows a left basal consolidation and a left pleural effusion which is complex in nature. Review of Systems Constitutional: DENIES: Fever, Chills Ears, nose, mouth, throat: DENIES: Throat pain Respiratory: COMPLAINS OF: Shortness of breath, DENIES: Cough, Hemoptysis, Sputum production Cardiovascular: COMPLAINS OF: Dyspnea on Exertion, Lower Extremity Edema ( chronic edema in the right lower extremity unchanged), DENIES: Chest pain, Palpitations Gastrointestinal: DENIES: Abdominal pain, Bloody stools, Vomiting Genitourinary: DENIES: Hematuria, Dysuria Musculoskeletal: DENIES: Back pain, Neck pain Integumentary: DENIES: Pruritus, Rash Neurologic: DENIES: Abnormal gait, Headache Psychiatric: DENIES: Anxiety, Confusion Past Family Social History Past Medical History Coronary artery disease Peripheral vascular disease Hypertension Hyperlipidemia Stage III CKD Chronic anemia Past Surgical History Cardiac catheterization 10-21-15 after abnormal nuclear study. Ablation for A. fib and atrial tach was performed. 5 vessel CABG, May 2005. PVD surgery right foot Bilateral cataract removal Reported Medications Allergies Coded Allergies Type Severity Reaction Last Updated Verified No Known Allergies 10/29/16 Yes Active Scripts Medications Dose Route/Sig Days Date Category Dose Instructions Novolin R Inj (Insulin Human Regular) 1,000 Unit/10 Ml Vial 5 Units SQ TIDAC 11/11/16 Reported Lantus Inj (Insulin Glargine) 1,000 Unit/10 Ml Vial 23 Units SQ AC BREAKFAST 11/11/16 Reported Amiodarone (Amiodarone HCl) 200 Mg Tab 200 Mg PO DAILY 10/30/16 Rx Aspirin EC (Aspirin) 81 Mg Tabdr 81 Mg PO DAILY 10/30/16 Rx Coumadin (Warfarin) 5 Mg Tab 5 Mg PO DAILY 10/30/16 Rx START ON Wednesday11/02/2016 Atorvastatin (Atorvastatin Calcium) 80 Mg Tab 80 Mg PO HS 10/23/16 Reported Valsartan 320 Mg Tab 320 Mg PO DAILY 10/23/16 Reported Calcitriol 0.25 Mcg Cap 0.25 Mcg PO DAILY 10/23/16 Reported Isosorbide Mononitrate ER (Isosorbide Mononitrate) 30 Mg Magdi 30 Mg PO DAILY 10/23/16 Reported Allergies: Coded Allergies: No Known Allergies (Verified , 10/29/16) Family History Reviewed and noncontributory Social History Does not smoke or drink. . Physical Exam Vital Signs Vital Signs Date Time Temp Pulse Resp B/P Pulse Ox O2 Delivery O2 Flow Rate FiO2 11/12/16 08:00 97.8 68 18 135/71 94 11/12/16 04:00 96.6 95 18 133/69 95 11/12/16 00:00 97.6 68 18 151/72 96 11/11/16 22:57 66 11/11/16 22:21 98.9 63 18 114/57 97 11/11/16 21:08 69 18 141/53 96 Room Air 11/11/16 19:41 99 11/11/16 19:15 67 18 121/69 97 Room Air 11/11/16 19:15 Room Air 11/11/16 17:52 99 Room Air 11/11/16 13:23 98.3 73 18 150/71 97 Physical Exam GENERAL: Well-nourished, well-developed patient. SKIN: Warm and dry. HEAD: Normocephalic. EYES: No scleral icterus. No injection or drainage. NECK: Supple, trachea midline. No JVD or lymphadenopathy. CARDIOVASCULAR: Regular rate and rhythm without murmurs, gallops, or rubs. RESPIRATORY: Breath sounds diminished at right base. No accessory muscle use on RA. GASTROINTESTINAL: Abdomen soft, non-tender, nondistended. EXTREMITIES: No cyanosis, or edema. NEUROLOGICAL: Awake, alert, and oriented x 3. Non-focal. Laboratory Laboratory Tests Test 11/11/16 11/11/16 11/12/16 17:50 23:15 05:50 White Blood Count 8.2 6.6 Red Blood Count 3.69 3.12 Hemoglobin 11.1 9.5 9.2 Hematocrit 34.3 29.5 28.2 Mean Corpuscular Volume 93.0 90.3 Mean Corpuscular Hemoglobin 30.2 29.4 Mean Corpuscular Hemoglobin 32.5 32.6 Concent Red Cell Distribution Width 16.0 15.4 Platelet Count 265 237 Mean Platelet Volume 8.6 8.5 Neutrophils (%) (Auto) 71.1 67.5 Lymphocytes (%) (Auto) 15.4 16.8 Monocytes (%) (Auto) 11.4 13.3 Eosinophils (%) (Auto) 1.1 1.9 Basophils (%) (Auto) 1.0 0.5 Neutrophils # (Auto) 5.8 4.5 Lymphocytes # (Auto) 1.3 1.1 Monocytes # (Auto) 0.9 0.9 Eosinophils # (Auto) 0.1 0.1 Basophils # (Auto) 0.1 0.0 CBC Comment DIFF FINAL DIFF FINAL Differential Comment Prothrombin Time 23.5 Prothromb Time International 2.1 Ratio Activated Partial 39.7 Thromboplast Time Sodium Level 136 141 Potassium Level 4.6 4.5 Chloride Level 103 107 Carbon Dioxide Level 22.1 23.9 Anion Gap 11 10 Blood Urea Nitrogen 27 28 Creatinine 1.50 1.40 Estimat Glomerular Filtration 45 48 Rate Random Glucose 234 165 Calcium Level 8.6 7.9 B-Type Natriuretic Peptide 303 Date/Time Procedure Status Source Growth 11/11/16 19:44 Aerobic Blood Culture - Preliminary Resulted Blood Peripheral NO GROWTH IN 1 DAY 11/11/16 19:44 Anaerobic Blood Culture - Preliminary Resulted Blood Peripheral NO GROWTH IN 1 DAY Result Diagram: 11/12/16 0550 11/12/16 0550 Imaging Last Impressions Chest X-Ray 11/11/16 0000 Signed Impressions: Service Date/Time: Friday, November 11, 2016 17:19 - CONCLUSION: Stable exam. Given the stability of the left-sided pleural effusion this may be loculated.. Jessie Green MD Chest CT 11/11/16 0000 Signed Impressions: Service Date/Time: Friday, November 11, 2016 18:15 - CONCLUSION: 1. Left basal consolidation likely pneumonia. 2. Left pleural effusion which is complex and contains hyperdense material. 3. Tiny right pleural effusion. 4. Status post CABG. Gucci Shields MD Assessment and Plan Assessment and Plan -Episode of dyspnea, with a small left complex pleural effusion. I discussed with pulmonology Dr. Sierra. Given that it is complex we'll attempt to do a CT- guided thoracentesis. The patient's dyspnea has resolved. He does have the consolidation at the left base however he has no clinical signs or symptoms of pneumonia. I'll place him on Levaquin. The patient has had pulmonology evaluation for this intermittent dyspnea which is been going on for several months. I do not think a recurrent pulmonary embolism is likely given that his Coumadin has been therapeutic and given his chronic kidney disease we will avoid doing a CTA. I do think he also requires a cardiology evaluation for the dyspnea and the patient and his state that they have an appointment to go see his new news library director Dr. Frazier. -I will order a CT-guided thoracentesis tomorrow with fluid studies. Will hold his Coumadin for today and resume tomorrow. Katharine Campbell MD Nov 12, 2016 11:50
--- NOTE | 2016-11-12 18:55 | MB ---
cc: BETTY WHITE MD,KATHARINE CHAPMAN,STEVE BUCK DATE OF CONSULTATION: 11/12/[address] Katharine Campbell. REASON FOR CONSULTATION Pulmonary embolism and pleural effusion. HISTORY OF PRESENT ILLNESS The Mr. Leone is an 86-year-old male who is known to me from the office with a history of coronary artery disease status post CABG, recently was diagnosed with a pulmonary embolism, he was complaining of shortness of breath. He had a chest x-ray done which showed a small effusion and it was advised to observe it. However, the patient was getting more short of breath and was advised by his primary care physician to come to the emergency room. He had a CT scan of the chest which shows left pleural effusion, no pulmonary embolism. His WBC count is 6.6, hemoglobin 9.2, hematocrit 28.1, MCV 90, platelet count 237. Sodium 141, potassium 4.5, chloride 107, CO2 23, BUN 28, creatinine 1.40. PAST MEDICAL HISTORY Significant for - 1. History of coronary artery disease status post CABG. 2. Pulmonary embolism. 3. Peripheral arterial disease. 4. Hyperlipidemia. 5. Chronic kidney disease. 6. Paroxysmal atrial fibrillation. 7. History of arthroscopic surgery. MEDICATIONS He is currently taking - 1. Levaquin 750 mg every 48 hours. 2. Amiodarone 200 mg a day. 3. Aspirin 81 mg a day. 4. Imdur 30 mg a day. 5. Valsartan 320 mg a day. 6. He is on insulin. ALLERGIES NO KNOWN DRUG ALLERGIES. SOCIAL HISTORY He has a brief history of smoking for a few years which he quit more than 50 years ago. He drinks occasionally. 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 FAMILY HISTORY He is for 60 years. He has seven children, one had bypass surgery. He has three sisters all have diabetes. Mother had diabetes. Father with heart disease. REVIEW OF SYSTEMS He has shortness of breath. No orthopnea or PND. He has a pulmonary embolism. No bleeding from any site. PHYSICAL EXAMINATION GENERAL: Elderly male, not in any acute distress. VITAL SIGNS: Blood pressure 139/70, heart rate 78, respirations 16, temperature 98.7. HEENT: Pupils are equal and reactive to light. Oral mucosa, nasal mucosa normal. NECK: Supple. JVP not raised. CHEST: She has decreased breath sounds at the left base. CARDIOVASCULAR: S1, S2 normal. ABDOMEN: Benign. EXTREMITIES: No edema. IMPRESSION 1. Left pleural effusion with worsening dyspnea. 2. Pulmonary embolism. 3. Coronary artery disease status post CABG. 4. Chronic kidney disease. 5. Diabetes mellitus. PLAN I discussed with Dr. Campbell his effusion is not very large however he is more symptomatic, he will get a CT-guided thoracentesis, in the meantime his Coumadin is on hold. He is on p.o. antibiotic. Monitor his electrolytes. Monitor PT and INR. He is stable on room air. Further treatment will depend on the course in the hospital. Thank you Dr. Campbell for this consultation. MD SHEFALI Waters/KATELYN /4:54 PM /6:10 PM [place]
[2016-11-12] MEDS: ATORVASTATIN 40 MG TAB PO SCH (20:32)
--- NOTE | 2016-11-12 21:12 | EKG ---
Date Performed: 11/11/2016 Time Performed: 17:28:16 PTAGE: 86 years EKG: Atrial fibrillation Abnormal ECG PREVIOUS TRACING : 10/29/2016 12.25 DOCTOR: Thom Salazar Interpretating Date/Time 11/12/2016 21:05:21
[2016-11-13] VITALS (7 sets, daily range): BP systolic 105–150; BP diastolic 58–79; PULSE 59–76; RESP 18–20; TEMP 95.7–97.6; O2SAT 93–97
[2016-11-13] MEDS: INSULIN ASPART SUPPLEMENTAL SCALE SQ SCH ×4 (06:12→20:12)
[2016-11-13 06:24] LABS: INTERNATIONAL NORMALIZED RATIO 1.4 RATIO; PROTHROMBIN TIME - PATIENT 15.4 SEC (9.8-11.6)
--- NOTE | 2016-11-13 08:37 | RADHPO ---
EXAM DATE/TIME: 11/13/2016 08:12 [facility] COMPARISON: No previous studies available for comparison. EXTERNAL COMPARISON : [facility], XR CHEST PA & LAT, September 29, 2016, August 18, 2016, June 10, 2016, April 28, 2012, CT CHEST W/O CONTRAST, May 05, 2012, [facility], XR CHEST PA & LAT, July 21, 2007, [facility], CT THORAX W CONTRAST, May 29, 2005. INDICATIONS : Right pleural effusion. MEDICAL HISTORY : Hypercholesterolemia. Hypertension. Congestive heart failure. CAD. Afib. COPD. Dyspnea. Stage III Bill al failure. Type I Diabetes. Factor V. Anticoagulant therapy, Warfarin. SURGICAL HISTORY : CABG. Bilateral cataract removal. Cardiac cath. Left knee arthroscopy. Blood transfusions. ENCOUNTER: Initial ACUITY: 1 week PAIN SCORE: 2/10 LOCATION: Right chest MEASUREMENTS: SKIN TO PARIETAL PLEURA: Inadequate fluid SKIN TO MAX SAFE DEPTH: Inadequate fluid ESTIMATED FLUID VOLUME: 45 cc FLUID COMPOSITION: simple FINDINGS: No marking was performed. CONCLUSION: 1. Small volume of fluid measuring less than 50 cc. Marking was not performed Chencho Sanon MD on November 13, 2016 at 8:35 Board Certified Radiologist. This report was verified electronically.
[2016-11-13] MEDS: AMIODARONE 200 MG TAB PO SCH (08:46)
[2016-11-13] MEDS: VALSARTAN 160 MG TAB PO SCH (08:46)
[2016-11-13] MEDS: ISOSORBIDE MONONITRATE 30 MG TAB PO SCH (08:46)
[2016-11-13] MEDS: ASPIRIN EC 81 MG TABEC PO SCH (08:47)
[2016-11-13] MEDS: SODIUM CHLORIDE 0.9% FLUSH 5 ML FLUSH FLUSH SCH ×2 (08:47→20:13)
--- NOTE | 2016-11-13 12:31 | HHI.PR ---
Subjective Remarks Patient still getting dyspneic on exertion. Denies any chest pain or chest pressure or diaphoresis. There is not enough fluid to draw for thoracentesis. Objective Vitals Vital Signs Date Time Temp Pulse Resp B/P Pulse Ox O2 Delivery O2 Flow Rate FiO2 11/13/16 08:10 93 21 11/13/16 08:00 97.5 67 20 150/79 96 11/13/16 04:00 97.4 60 18 105/58 97 11/13/16 00:00 97.6 76 18 129/70 96 11/12/16 20:00 62 11/12/16 20:00 97.7 58 18 143/69 95 11/12/16 19:28 96 11/12/16 16:00 98.7 76 18 139/70 95 Result Diagram: 11/12/16 0550 11/12/16 0550 Objective Remarks GENERAL: Well-nourished, well-developed very pleasant elderly male patient. SKIN: Warm and dry. HEAD: Normocephalic. EYES: No scleral icterus. No injection or drainage. NECK: Supple, trachea midline. No JVD or lymphadenopathy. CARDIOVASCULAR: Regular rate and rhythm without murmurs, gallops, or rubs. RESPIRATORY: Breath sounds equal bilaterally. No accessory muscle use. GASTROINTESTINAL: Abdomen soft, non-tender, nondistended. EXTREMITIES: No cyanosis, or edema. NEUROLOGICAL: Awake, alert, and oriented x 3. Non-focal. A/P Assessment and Plan -Dyspnea on exertion, small left complex pleural effusion. Not enough fluid for the left pleural effusion to be tapped. The complex fluid collection may be blood given he is on coumadin, recently had pulmonary embolism witih likely pulmonary infarct. This is his third admission for the dyspnea (previous admission for pneumonia and PE, but the dyspnea has never went away fully per the patient). Has been treated for pneumonia, pulmonary embolism. He needs cardiac workup. He is not likely to be able to get into his abstract maker soon. Need to rule out cardiac ischemia and we will proceed with echocardiogram and stress test. Patient is agreeable to plan. We'll resume Coumadin and start Lovenox as his INR is 1.5 today. CTA this admission shows consolidation in left base, however without fever, cough, or leukocytosis this is unlikely to be pneumonia, and is more likely compressive atelectasis from the effusion. Continue levaquin PO. Dr. Sierra will follow the patient in his clinic for the pleural effusion and will see him back in 1 week after discharge. -Coronary artery disease -continue baby aspirin, isosorbide. -Peripheral vascular disease -DC Plavix and start on baby aspirin. -Hypertension - cont diovan. -Hyperlipidemia -Stage III CKD -stable on repeat BMP today. -Chronic anemia - hb 9 somewhat decreased from prior admission, but stable on repeat. -Paroxysmal atrial fibrillation - continue amiodarone, coumadin. -Type 2 diabetes. resume lantus 23 units with breakfast, and novolin R 5 units sq tidac. cont ssi with accucheck. -Chronic Diastolic CHF - currently in good fluid balance. not on lasix as outpatient. echocardiogram ordered and pending. -DVT px - as above. Katharine Campbell MD Nov 13, 2016 12:31
[2016-11-13] MEDS ORDERED: ENOXAPARIN SODIUM 80 MG/0.8 ML SYRINGE SQ ONE (12:45)
[2016-11-13] MEDS ORDERED: DO NOT ADM ANY ANTICOAGULANT DRUGS XX PRN (13:15)
[2016-11-13] MEDS ORDERED: WARFARIN SOD 7.5 MG TAB PO ONE (16:00)
[2016-11-13] MEDS: INSULIN HUMAN REGULAR 1,000 UNITS/10 ML VIAL SQ SCH (17:03)
--- NOTE | 2016-11-13 18:06 | HHI.PR ---
Subjective Remarks 86 YO male withCAD,Pl eff, PE, SOB Went for Tc but pl fluid too small for TC has SOB on exertion no Fever Cough with small amount of sp No CP Objective Vital Signs Vital Signs Date Time Temp Pulse Resp B/P Pulse Ox O2 Delivery O2 Flow Rate FiO2 11/13/16 16:00 96.4 59 20 111/58 96 11/13/16 12:00 95.7 68 20 144/76 96 11/13/16 08:10 93 21 11/13/16 08:00 97.5 67 20 150/79 96 11/13/16 04:00 97.4 60 18 105/58 97 11/13/16 00:00 97.6 76 18 129/70 96 11/12/16 20:00 62 11/12/16 20:00 97.7 58 18 143/69 95 11/12/16 19:28 96 Result Diagram: 11/12/16 0550 11/12/16 0550 Objective Remarks GENERAL:MBMN male, NAD SKIN: Warm and dry. HEAD: Normocephalic. EYES: No scleral icterus. No injection or drainage. NECK: Supple, trachea midline. No JVD or lymphadenopathy. CARDIOVASCULAR: Regular rate and rhythm without murmurs, gallops, or rubs. RESPIRATORY: Breath sounds equal bilaterally. No accessory muscle use. Decreased BS left base GASTROINTESTINAL: Abdomen soft, non-tender, nondistended. MUSCULOSKELETAL: No cyanosis, or edema. BACK: Nontender without obvious deformity. No CVA tenderness. A/P Assessment and Plan Small pl effusion Pulm Embolism Atelactesis COPD DM CAD PLAN; Pl fluid small for TC Cont Abx Anticoagulation Cardiac eval DW Dr.Rathbun Torres FU in office Leland Sierra MD Nov 13, 2016 18:06
[2016-11-13] MEDS: ATORVASTATIN 40 MG TAB PO SCH (20:12)
[2016-11-13] MEDS: ENOXAPARIN SODIUM 80 MG/0.8 ML SYRINGE SQ SCH (22:18)
[2016-11-14] VITALS: BP 125/65; PULSE 60; RESP 20; TEMP 98.2; O2SAT 96
[2016-11-14 04:00] VITALS: BP 137/64; PULSE 62; RESP 20; TEMP 96; O2SAT 96
[2016-11-14] MEDS: INSULIN ASPART SUPPLEMENTAL SCALE SQ SCH ×3 (07:00→16:00)
[2016-11-14] MEDS ORDERED: INSULIN DETEMIR 100 UNITS/ML VIAL SQ SCH (07:00)
[2016-11-14 07:03] LABS: INTERNATIONAL NORMALIZED RATIO 1.2 RATIO; PROTHROMBIN TIME - PATIENT 13.4 SEC (9.8-11.6)
[2016-11-14 08:00] VITALS: BP 141/65; PULSE 58; PULSE 78; RESP 18; TEMP 96.7; O2SAT 97
[2016-11-14] MEDS: INSULIN HUMAN REGULAR 1,000 UNITS/10 ML VIAL SQ SCH ×3 (08:00→16:35)
[2016-11-14] MEDS ORDERED: LEVOFLOXACIN 750 MG TAB PO SCH (09:00)
[2016-11-14] MEDS ORDERED: LEVOFLOXACIN 750 MG PREMIX INJ 150 ML IV SCH (09:00)
[2016-11-14] MEDS ORDERED: REGADENOSON INJ 0.4 MG/5 ML SYR IV ONE (10:08)
--- NOTE | 2016-11-14 11:17 | RADHPO ---
EXAM DATE/TIME: 11/14/2016 10:16 [facility] COMPARISON: MYOCARDIAL PERF PHARM SPECT, GATED W/EF, September 08, 2015, 9:51. INDICATIONS : Increased dyspnea for the past month. Coronary artery disease. Myocardial infarction. DOSE: 25.4 mCi Tc99m Myoview at stress. 8.5 mCi Tc99m Myoview at rest. 0.4 mg Lexiscan STRESS SYMPTOMS: Dyspnea. EJECTION FRACTION: 55% MEDICAL HISTORY : Hypertension. Peripheral vascular disease. SURGICAL HISTORY : CABG Coronary artery stent. Cataract surgery. ENCOUNTER: Initial ACUITY: 1 week PAIN SCALE: 0/10 LOCATION: Left chest TECHNIQUE: The patient underwent pharmacologic stress with infusion of prescribed dose. Continuous ECG tracing was monitored during stress. Gated SPECT imaging was performed after stress and conventional SPECT i maging was performed at rest. The examination was performed on a SPECT/CT scanner, both attenuation and non-corrected datasets were reviewed. FINDINGS: DISTRIBUTION: The maximum perfused segment at stress is in the anterolateral wall. PERFUSION STUDY: The pattern of perfusion at stress is within normal limits. No fixed or reversible perfusion defect i s identified. There is left ventricle apical thinning. GATED STUDY: There is intact wall motion and thickening without hypokinetic or dyskinetic segments. CONCLUSION: 1. No fixed or reversible perfusion defect is identified. 2. Normal left ventricle wall motion with a calculated ejection fraction of 55%. RISK CATEGORY: Low (<1% Annual Mortality Rate) Devon Balderrama MD on November 14, 2016 at 11:12 Board Certified Radiologist. This report was verified electronically.
[2016-11-14] MEDS: VALSARTAN 160 MG TAB PO SCH (11:57)
[2016-11-14] MEDS: SODIUM CHLORIDE 0.9% FLUSH 5 ML FLUSH FLUSH SCH (11:57)
[2016-11-14] MEDS: ASPIRIN EC 81 MG TABEC PO SCH (11:57)
[2016-11-14] MEDS: ISOSORBIDE MONONITRATE 30 MG TAB PO SCH (11:57)
[2016-11-14] MEDS: AMIODARONE 200 MG TAB PO SCH (11:57)
[2016-11-14] MEDS: ENOXAPARIN SODIUM 80 MG/0.8 ML SYRINGE SQ SCH (11:57)
[2016-11-14 12:00] VITALS: BP 146/71; PULSE 65; RESP 18; TEMP 97.9; O2SAT 94
[2016-11-14 16:00] VITALS: BP 139/65; PULSE 67; RESP 18; TEMP 97.5; O2SAT 97
[2016-11-14] MEDS ORDERED: WARFARIN SOD 5 MG TAB PO SCH (16:00)
[2016-11-14] MEDS ORDERED: CEFT500T3 PO (16:12)
--- NOTE | 2016-11-14 16:14 | HHI.DS ---
Discharge Summary Admission Date Nov 11, 2016 at 19:13 Discharge Date: Nov 14, 2016 Admitting Diagnosis dyspnea on exertion, pleural effusion (1) Dyspnea ICD Code: R06.00 (2) Pleural effusion on left ICD Code: J90 Procedures None Brief History - From Admission This is a very pleasant 86 year-old male known to me from previous hospital admission who has a past medical history of pulmonary embolism recently and was placed on Coumadin for this, chronic kidney disease, coronary artery disease status post CABG in the past, peripheral vascular disease with a stent in the right lower extremity who presented to the ER last night complaining of shortness of breath. The patient has been having intermittent shortness of breath ongoing for several months. He had been following with a wildlife science professor for this (Dr. Sierra). It was his primary care physician who initially discovered the pulmonary embolism in the outpatient setting. When he was admitted at that time the CTA showed multiple pulmonary embolism with probable pulmonary infarct. He was started on coumadin. The patient has a known mild pleural effusion which was seen during his previous hospitalization but was told by his wildlife science professor that there was not enough fluid to tap. Patient states that he did feel much better after being started on the Coumadin and Lovenox and had been doing well until yesterday when getting up and walking upstairs he was severely winded. He has had ongoing dyspnea with exertion, however it was more severe yesterday. For this reason he presented to the ER. The patient denied cough, fever, chills, increased leg swelling. His INR was therapeutic at 2.1. He called his primary care physician 's office and he was told by the answering nurse that he should go to the emergency department. CT in the emergency department showed a left basal consolidation and a left pleural effusion which is complex in nature. CBC/BMP: 11/12/16 0550 11/12/16 0550 Significant Findings Laboratory Tests Test 11/11/16 11/11/16 11/12/16 11/13/16 17:50 23:15 05:50 05:30 Red Blood Count 3.69 MIL/MM3 3.12 MIL/MM3 (4.50-5.90) (4.50-5.90) Hemoglobin 11.1 GM/DL 9.5 GM/DL 9.2 GM/DL (13.0-17.0) (13.0-17.0) (13.0-17.0) Hematocrit 34.3 % 29.5 % 28.2 % (39.0-51.0) (39.0-51.0) (39.0-51.0) Neutrophils (%) (Auto) 71.1 % (16.0-70.0) Monocytes (%) (Auto) 11.4 % 13.3 % (0.0-8.0) (0.0-8.0) Prothrombin Time 23.5 SEC 15.4 SEC (9.8-11.6) (9.8-11.6) Activated Partial 39.7 SEC Thromboplast Time (24.3-30.1) Blood Urea Nitrogen 27 MG/DL (7-18) 28 MG/DL (7-18) Creatinine 1.50 MG/DL 1.40 MG/DL (0.60-1.30) (0.60-1.30) Estimat Glomerular Filtration 45 ML/MIN (>89) 48 ML/MIN (>89) Rate Random Glucose 234 MG/DL 165 MG/DL (74-106) (74-106) B-Type Natriuretic Peptide 303 PG/ML (0-100) Calcium Level 7.9 MG/DL (8.5-10.1) Test 11/14/16 06:40 Prothrombin Time 13.4 SEC (9.8-11.6) Imaging Last Impressions Myocardial Perfusion Scan Nuc Med 11/14/16 0600 Signed Impressions: Service Date/Time: Monday, November 14, 2016 10:16 - CONCLUSION: 1. No fixed or reversible perfusion defect is identified. 2. Normal left ventricle wall motion with a calculated ejection fraction of 55%%. RISK CATEGORY: Low (<1%% Annual Mortality Rate) Devon Balderrama MD Chest Ultrasound 11/13/16 0000 Signed Impressions: Service Date/Time: Sunday, November 13, 2016 08:12 - CONCLUSION: 1. Small volume of fluid measuring less than 50 cc. Marking was not performed Chencho Sanon MD Chest X-Ray 11/11/16 0000 Signed Impressions: Service Date/Time: Friday, November 11, 2016 17:19 - CONCLUSION: Stable exam. Given the stability of the left-sided pleural effusion this may be loculated.. Jessie Green MD Chest CT 11/11/16 0000 Signed Impressions: Service Date/Time: Friday, November 11, 2016 18:15 - CONCLUSION: 1. Left basal consolidation likely pneumonia. 2. Left pleural effusion which is complex and contains hyperdense material. 3. Tiny right pleural effusion. 4. Status post CABG. Gucci Shields MD PE at Discharge GENERAL: Well-nourished, well-developed very pleasant elderly male patient. SKIN: Warm and dry. HEAD: Normocephalic. EYES: No scleral icterus. No injection or drainage. NECK: Supple, trachea midline. No JVD or lymphadenopathy. CARDIOVASCULAR: Regular rate and rhythm without murmurs, gallops, or rubs. RESPIRATORY: Breath sounds equal bilaterally. No accessory muscle use. GASTROINTESTINAL: Abdomen soft, non-tender, nondistended. EXTREMITIES: No cyanosis, or edema. NEUROLOGICAL: Awake, alert, and oriented x 3. Non-focal. Hospital Course The patient was placed in the hospital. Due to his renal function and the fact that he was therapeutic on Coumadin, he did not undergo another CTA as pulmonary embolism was thought unlikely. I did discuss the small left pleural effusion with his wildlife science professor Dr. Sierra. As it was complex we attempted to obtain a CT-guided thoracentesis however were told by radiology that there was not enough fluid present to collect a sample. The patient had no clinical signs or symptoms of pneumonia specifically no white blood cell count elevation , left shift or fever or cough. He was placed on antibiotics. Throughout his hospitalization he was stable on room air. Given the dyspnea had been plaguing him for several months and he had been unable to follow-up with his road freight firer , we then proceeded with nuclear stress test which showed preserved ejection fraction and no evidence of cardiac ischemia. I additionally ordered a 2-D echocardiogram to rule out valvular disease. The echocardiogram was not able to be red and so the patient was discharged home and I told him I would call in the next day to let him know the results. The patient was placed on Ceftin by mouth at discharge. In my opinion I feel he is likely still somewhat dyspneic from the pulmonary embolism which will take several more weeks to fully resolve. I did encourage him to follow-up with his primary care physician and his road freight firer which he and his are planning on doing. Update on 11/15 - echocardiogram shows EF 45-50% and no LV wall motion abnormality and no valvular pathology. I did call the patient there was no answer so I left a message. Pt Condition on Discharge: Stable Discharge Disposition: Discharge Home Discharge Time: > 30 minutes Discharge Instructions DIET: Follow Instructions for: Diabetic Diet Activities you can perform: Regular-No Restrictions New Medications: Cefuroxime (Ceftin) 500 Mg Tab 500 MG PO BID Infection #14 Ref 0 TAB Continued Medications: Amiodarone (Amiodarone) 200 Mg Tab 200 MG PO DAILY Regulate Heart Beat #30 Ref [address] (Aspirin EC) 81 Mg Tabdr 81 MG PO DAILY protect heart #30 Ref 0 TAB Atorvastatin (Atorvastatin) 80 Mg Tab 80 MG PO HS Cholesterol Management #30 Ref 0 TAB Calcitriol (Calcitriol) 0.25 Mcg Cap 0.25 MCG PO DAILY Calcium Supplement #30 Ref 0 CAP Insulin Glargine Inj (Lantus Inj) 1,000 Unit/10 Ml Vial 23 UNITS SQ AC BREAKFAST Blood Sugar Management Ref 0 VIAL Insulin Human Regular Inj (Novolin R Inj) 1,000 Unit/10 Ml Vial 5 UNITS SQ TIDAC Blood Sugar Management Ref 0 ML Isosorbide Mononitrate ER (Isosorbide Mononitrate ER) 30 Mg Magdi 30 MG PO DAILY Prevent Chest Pain #30 Ref 0 TAB Valsartan (Valsartan) 320 Mg Tab 320 MG PO DAILY #30 Ref 0 TAB Warfarin (Coumadin) 5 Mg Tab 5 MG PO DAILY START ON Wednesday11/02/2016 Blood Clot Prevention #30 Ref 0 TAB Katharine Campbell MD Nov 14, 2016 16:14
--- NOTE | 2016-11-15 10:48 | EC ---
Study Study Date:11/14/2016 STUDY CONCLUSIONS SUMMARY - Left ventricle: The cavity size was normal. Wall thickness was normal. Systolic function was mildly reduced. The estimated ejection fraction was in the range of 45% to 50%. Wall motion was normal; there were no regional wall motion abnormalities. - Left atrium: The atrium was mildly dilated. - Pulmonary arteries: PA peak pressure: 49mm Hg (S). If LV function is below 40, please consider prescribing an ACEI or ARB or document rationale for non-use. PROCEDURE DATA STUDY STATUS: Elective. Procedure: Transthoracic echocardiography. Image quality was poor. Scanning was performed from the parasternal, apical, and subcostal acoustic windows. Study completion: The patient tolerated the procedure well. Transthoracic echocardiography. M-mode, complete 2D, complete spectral Doppler, and color Doppler. Patient status: Inpatient. CARDIAC ANATOMY LEFT VENTRICLE: The cavity size was normal. Wall thickness was normal. Systolic function was mildly reduced. The estimated ejection fraction was in the range of 45% to 50%. Wall motion was normal; there were no regional wall motion abnormalities. AORTIC VALVE: Trileaflet; mildly thickened, mildly calcified leaflets. Doppler: Transvalvular velocity was within the normal range. There was no stenosis. No regurgitation. AORTA: Aortic root: The aortic root was normal in size. MITRAL VALVE: Structurally normal valve. Doppler: Transvalvular velocity was within the normal range. There was no evidence for stenosis. No regurgitation. Peak gradient: 4mm Hg (D). LEFT ATRIUM: The atrium was mildly dilated. RIGHT VENTRICLE: The cavity size was normal. Wall thickness was normal. PULMONIC VALVE: Doppler: Transvalvular velocity was within the normal range. There was no evidence for stenosis. No regurgitation. TRICUSPID VALVE: Structurally normal valve. Doppler: Transvalvular velocity was within the normal range. No regurgitation. PULMONARY ARTERY: The main pulmonary artery was normal-sized. Systolic pressure was within the normal range. RIGHT ATRIUM: The atrium was normal in size. PERICARDIUM: There was no pericardial effusion. SYSTEMIC VEINS: Inferior vena cava: The vessel was normal in size. BASIC MEASUREMENTS ADULT NORMAL Left ventricle LV internal dimension, ED, chordal level, 46.5 mm 43-52 PLAX LV posterior wall thickness, ED 8.55 mm IVS/LVPW ratio, ED 1.26 <1.3 Ventricular septum Septal thickness, ED 10.8 mm Left atrium Anterior-posterior dimension 40 mm Right ventricle RV internal dimension, ED, PLAX 26.5 mm 19-38 DOPPLER MEASUREMENTS ADULT NORMAL Main pulmonary artery Pressure, S *49 mm Hg =30 Mitral valve Peak E-wave velocity 94.3 cm/s Peak A-wave velocity 33.6 cm/s Peak gradient, D 4 mm Hg Peak E/A ratio 2.8 Tricuspid valve Regurgitant peak velocity 311 cm/s Peak RV-RA gradient, S 39 mm Hg Maximal regurgitant velocity 311 cm/s Systemic veins Estimated CVP 10 mm Hg Right ventricle RV pressure, S *49 mm Hg <30 LEGEND: Mean values are shown as u=mean value. Asterisk (*) hodgson values outside specified normal range. Prepared and signed by Mohsen Núñez [id number]
[2017-04-18] MEDS ORDERED: NORC5TAB PO (17:35)
[2017-04-18] MEDS ORDERED: CEPH-459 PO (17:35)
== END 2016-11-14 18:00 | disposition home or self-care (01) ==
LOC: PHED 13:06 → PHEDA 19:13 → PH3A 22:13
PROVIDERS: ADMIT Family Medicine; ATTEND Family Medicine
DX: J90 Pleural effusion, not elsewhere classified (principal); I26.99 Other pulmonary embolism without acute cor pulmonale; I48.0 Paroxysmal atrial fibrillation; I25.10 Atherosclerotic heart disease of native coronary artery without angina pectoris; I13.0 Hypertensive heart and chronic kidney disease with heart failure and stage 1 through stage 4 chronic kidney disease, or unspecified chronic kidney disease; N18.3 Chronic kidney disease, stage 3 (moderate); E10.22 Type 1 diabetes mellitus with diabetic chronic kidney disease; I73.9 Peripheral vascular disease, unspecified; E78.5 Hyperlipidemia, unspecified; J44.0 Chronic obstructive pulmonary disease with (acute) lower respiratory infection; D64.9 Anemia, unspecified; E78.00 Pure hypercholesterolemia, unspecified; Z79.4 Long term (current) use of insulin; Z79.01 Long term (current) use of anticoagulants; Z87.891 Personal history of nicotine dependence; Z95.1 Presence of aortocoronary bypass graft; Z95.5 Presence of coronary angioplasty implant and graft
CPT/HCPCS: 71020; 71250; 76604; 78452; 80048; 82948; 83880; 85014; 85018; 85025; 85610; 85730; 87015; 87040; 93005; 93017; 93306; 97110; 97116; 97162; 99285; A9502; G0378; G8987; G8988; J0456; J0696; J1650; J1815; J1956; J2785; J7050

== ENCOUNTER 2017-03-15 08:04 | Emergency (ER) | payer OTHER ==
[~2017-03-15] VITALS: Ht 170.2 cm; Wt 77.2 kg
[~2017-03-15 08:04] MED LIST changes: +CEFT500T3 PO; -ENOX80P SQ; -FURO1TAB62 PO; +NOVORP2 SQ
[2017-03-15 08:09] VITALS: BP 160/84; PULSE 70; RESP 16; TEMP 98; O2SAT 92
[2017-03-15] MEDS ORDERED: GABA300C5 PO (08:35)
--- NOTE | 2017-03-15 08:35 | PD ---
HPI Chief Complaint: Musculoskeletal Complaint Time Seen by Provider: 08:13 Travel History International Travel<30 days: No Contact w/Intl Traveler<30days: No Traveled to known affect area: No History of Present Illness HPI This is an 87 year old male who presents to the emergency department having woken up with pain in the left side of his neck, constant, sharp, stabbing, elicited by moving his neck to the left side. He reports the pain is extending from the base of the skull down to the left shoulder. He denies any associated numbness or weakness and has no coolness of the arm. He denies any chest pain, shortness of breath or diaphoresis. He said yesterday he bent over to put a sofa bed on a alex and he thinks he may have injured it then. The pain is only elicited when he moves his neck. PFSH Past Medical History Hx Anticoagulant Therapy: Yes (WARFARIN) Asthma: No Autoimmune Disease: No Anxiety: No Depression: No Heart Rhythm Problems: Yes (afib) Cancer: No Cardiac Catheterization: Yes (2014) Cardiovascular Problems: Yes (htn on meds, 4 vessels bypass 2004) High Cholesterol: Yes Chest Pain: No Congestive Heart Failure: Yes COPD: Yes Coronary Artery Disease: Yes Diabetes: Yes (type 1) Diminished Hearing: No Endocrine: Yes Gastrointestinal Disorders: No GERD: No Glaucoma: No Genitourinary: Yes Hepatitis: No Hiatal Hernia: No Hypertension: Yes Immune Disorder: No Implanted Vascular Access Dvce: Yes Kidney Stones: No Musculoskeletal: No Neurologic: No Psychiatric: No Reproductive: No Respiratory: Yes (copd) Integumentary: No Renal Failure: Yes (STAGE III) Sickle Cell Disease: No Sleep Apnea: No Thyroid Disease: No Ulcer: No Past Surgical History Abdominal Surgery: No Body Medical Devices: stent in right leg Cardiac Surgery: Yes ([address] dinero May 2005) Coronary Artery Bypass Graft: Yes (5 VESSEL) Eye Surgery: Yes (BILAT. CATARACT REMOVAL) Genitourinary Surgery: No Neurologic Surgery: No Thoracic Surgery: Yes (CABG) Other Surgery: Yes Social History Alcohol Use: Yes (OCC) Tobacco Use: No (quit 60 years ago) Substance Use: No Allergies-Medications (Allergen,Severity, Reaction): Coded Allergies: No Known Allergies (Verified , 03/15/17) Reported Meds & Prescriptions Reported Meds & Active Scripts Active Ceftin (Cefuroxime Axetil) 500 Mg Tab 500 Mg PO BID Amiodarone (Amiodarone HCl) 200 Mg Tab 200 Mg PO DAILY Aspirin EC (Aspirin) 81 Mg Tabdr 81 Mg PO DAILY Coumadin (Warfarin) 5 Mg Tab 5 Mg PO DAILY START ON Wednesday11/02/2016 Reported Novolin R Inj (Insulin Human Regular) 1,000 Unit/10 Ml Vial 5 Units SQ TIDAC Lantus Inj (Insulin Glargine) 1,000 Unit/10 Ml Vial 23 Units SQ AC BREAKFAST Atorvastatin (Atorvastatin Calcium) 80 Mg Tab 80 Mg PO HS Valsartan 320 Mg Tab 320 Mg PO DAILY Calcitriol 0.25 Mcg Cap 0.25 Mcg PO DAILY Isosorbide Mononitrate ER (Isosorbide Mononitrate) 30 Mg Magdi 30 Mg PO DAILY Review of Systems Except as stated in HPI: all other systems reviewed are Neg Physical Exam Narrative GENERAL:Well appearing, no acute distress SKIN: Focused skin assessment warm and dry. HEAD: Atraumatic. Normocephalic. EYES: Pupils equal and round. No injection or drainage. ENT: Moist mucous membranes NECK: Trachea midline. Pain with rotation of the neck to the left, unable to rotate past 30 without pain. No focal tenderness over the cervical spine. CARDIOVASCULAR: Regular rate and rhythm. No murmur appreciated. Old sternotomy scar. 2+ left radial pulse. Normal capillary refill in the left hand. RESPIRATORY: Clear to auscultation. Breath sounds equal bilaterally. GASTROINTESTINAL: Abdomen soft, non-tender, nondistended. MUSCULOSKELETAL: No obvious deformities. NEUROLOGICAL: Awake and alert. No obvious cranial nerve deficits. 5 out of 5 strength in the bilateral upper extremities. Sensation is grossly intact in the bilateral upper extremities. 2+ left biceps and brachioradialis reflex. PSYCHIATRIC: Appropriate mood and affect; insight and judgment normal. Data Data Last Documented VS Vital Signs Date Time Temp Pulse Resp B/P Pulse Ox O2 Delivery O2 Flow Rate FiO2 03/15/17 08:22 73 16 03/15/17 08:09 98.0 160/84 92 MDM Medical Decision Making Medical Screen Exam Complete: Yes Emergency Medical Condition: Yes Differential Diagnosis cervical radiculopathy, spinal cord compression, epidural abscess, coronary artery disease, muscle spasm Narrative Course This is an 87-year-old male who presents to the emergency department with left- sided neck pain that started when he woke up this morning. I considered coronary artery disease however his pain is purely musculoskeletal, and only elicited with movement. I'm able to elicit his pain on exam with range of motion of the neck. He has a normal neurovascular exam. He is very well appearing. I suspect he has a cervical radiculopathy. I don't think imaging is warranted at this time. He also struggles with diabetic neuropathy. I think it would be reasonable to start the patient on gabapentin. I advised him to use a heating pad for comfort and Tylenol. He'll follow-up with his primary care physician for possible physical therapy if he is not improving by the end of the week. Diagnosis Primary Impression: Cervical radiculopathy Patient Instructions: General Instructions Additional Instructions: If you develop numbness, weakness, chest pain, shortness of breath or sweating return to the emergency Department immediately. Use heat on your neck, take gabapentin for one week, and take Tylenol as needed. Follow-up with your primary care physician in one week if your symptoms are not improved as you may need physical therapy or further diagnostic studies. Med/Other Pt SpecificInfo: Prescription(s) given Scripts Gabapentin 300 Mg [id number] Mg PO TID #30 CAP Ref 0 Prov:Lidia Morales MD 03/15/17 Disposition: 01 DISCHARGE HOME Condition: Stable Lidia Morales MD March 15, 2017 08:35
[2017-03-15] MEDS ORDERED: ALBI1INJ2 SQ (08:39)
[2017-04-18] MEDS ORDERED: NORC5TAB PO (17:35)
[2017-04-18] MEDS ORDERED: CEPH-459 PO (17:35)
== END 2017-03-15 08:49 | disposition home or self-care (01) ==
LOC: PHED 08:04
DX: M54.12 Radiculopathy, cervical region (principal); I13.10 Hypertensive heart and chronic kidney disease without heart failure, with stage 1 through stage 4 chronic kidney disease, or unspecified chronic kidney disease; E10.40 Type 1 diabetes mellitus with diabetic neuropathy, unspecified; N18.3 Chronic kidney disease, stage 3 (moderate); J44.9 Chronic obstructive pulmonary disease, unspecified; E78.00 Pure hypercholesterolemia, unspecified; I25.10 Atherosclerotic heart disease of native coronary artery without angina pectoris; I48.91 Unspecified atrial fibrillation; Z87.891 Personal history of nicotine dependence; Z79.4 Long term (current) use of insulin; Z95.1 Presence of aortocoronary bypass graft; Z79.01 Long term (current) use of anticoagulants
CPT/HCPCS: 99283

== ENCOUNTER → 2017-04-18 | Day surgery (SDC) | payer OTHER ==
[~2017-04-18] VITALS: Ht 170.2 cm; Wt 72.1 kg
[~2017-04-18] MED LIST changes: +ALBI1INJ2 SQ; +BUPIVACAINE HCL PF 0.5% 30 ML VIAL ONE; -CEFT500T3 PO; +CEPH-459 PO; +CHLORHEXIDINE GLUCONATE 2 % 1 PACK (2 CLOTHS) TOPICAL PRN; +DEXAMETHASONE SOD PHOS 4 MG/ML VIAL ONE; +FAMOTIDINE 20 MG/2 ML VIAL ONE; +GABA300C5 PO; +GELFOAM SIZE 100 ONE; +GENTAMICIN 80 MG PREMIX 100 ML ONE; +INSULIN HUMAN REGULAR 1,000 UNITS/10 ML VIAL SQ PRN; +LACTATED RINGER'S 1000 ML INJ 1,000 ML IV SCH; +LACTATED RINGER'S 1000 ML IV PRN; +LIDOCAINE HCL 2% 50 ML VIAL INFIL ONE; +METOPROLOL TARTRATE 25 MG TAB PO PRN; +MIDAZOLAM HCL 2 MG/2 ML VIAL ONE; +NEOMYCIN/POLYMYXIN 1 ML G.U. IRRIGANT IR ONE; +NEOMYCIN/POLYMYXIN 1 ML G.U. IRRIGANT ONE; +NORC5TAB PO; +NORMOSOL R INJ 1,000 ML IV ONE; -NOVORP2 SQ; +ONDANSETRON HCL 4 MG/2 ML VIAL ONE; +POVIDONE IODINE 5% (ANTISEPSIS KIT) 4 APPLICATIONS EACH NARE PRN; +PROPOFOL 200 MG/20 ML AMP IV ONE; +RESP: ALBUTEROL 2.5 MG/3 ML NEB (PRN) ONE; +SODIUM CHLORID 0.9% 500 ML IV PRN; +SODIUM CHLORIDE 0.9% FLUSH 10 ML FLUSH IVF PRN; +SODIUM CHLORIDE 0.9% INJ 50 ML ONE; +TETANUS/DIPHTHERIA TOXOID ADULT 0.5 ML VIAL IM ONE; +THROMBIN (TOPICAL) 5,000 UNIT VIAL ONE; +ceFAZolin INJ 1,000 MG VIAL ONE; +ePHEDrine/NS 25 MG/5 ML SYR IV ONE; +fentaNYL CITRATE 250 MCG/5 ML AMP ONE
[2017-04-18 11:31] VITALS: BP 122/76; PULSE 64; RESP 16; TEMP 98.1; O2SAT 94
--- NOTE | 2017-04-18 12:01 | PD ---
HPI Chief Complaint: Laceration/Skin Injury Time Seen by Provider: 11:49 Travel History International Travel<30 days: No Contact w/Intl Traveler<30days: No Traveled to known affect area: No History of Present Illness HPI 87-year-old right-handed male with history of diabetes on warfarin presents to the emergency room for evaluation of left second and third digit laceration after cutting himself on a bandsaw just prior to arrival. Patient does not remember exactly how it happened. States he wrapped his hand at a towel came straight to the emergency room. Reports minimal pain. His last INR was drawn 3 or 4 days ago and was 1.1. Patient took an extra half Coumadin that day but has gone back to his normal 5 mg per day since. Last tetanus was 5 years ago. PFSH Past Medical History Hx Anticoagulant Therapy: Yes (WARFARIN) Asthma: No Autoimmune Disease: No Anxiety: No Depression: No Heart Rhythm Problems: Yes (afib) Cancer: No Cardiac Catheterization: Yes (2014) Cardiovascular Problems: Yes (A.FIB) High Cholesterol: Yes Chest Pain: No Congestive Heart Failure: Yes COPD: Yes Coronary Artery Disease: Yes Diabetes: Yes Patient Takes Glucophage: Yes Diminished Hearing: No Endocrine: Yes Gastrointestinal Disorders: No GERD: No Glaucoma: No Genitourinary: Yes Hepatitis: No Hiatal Hernia: No Hypertension: Yes Immune Disorder: No Implanted Vascular Access Dvce: Yes Kidney Stones: No Musculoskeletal: No Neurologic: No Psychiatric: No Reproductive: No Respiratory: Yes (copd) Integumentary: No Renal Failure: Yes (STAGE III) Sickle Cell Disease: No Sleep Apnea: No Thyroid Disease: No Ulcer: No Tetanus Vaccination: < 5 Years Influenza Vaccination: Yes Past Surgical History Abdominal Surgery: No Body Medical Devices: stent in right leg Cardiac Surgery: Yes ([address] dinero May 2005) Coronary Artery Bypass Graft: Yes (5 VESSEL) Eye Surgery: Yes (BILAT. CATARACT REMOVAL) Genitourinary Surgery: No Neurologic Surgery: No Thoracic Surgery: Yes (CABG) Other Surgery: Yes Social History Alcohol Use: Yes (occas. beer) Tobacco Use: No (quit 60 years ago) Substance Use: No Allergies-Medications (Allergen,Severity, Reaction): Coded Allergies: No Known Allergies (Verified , 04/18/17) Reported Meds & Prescriptions Reported Meds & Active Scripts Active Gabapentin 300 Mg Cap 300 Mg PO TID Amiodarone (Amiodarone HCl) 200 Mg Tab 200 Mg PO DAILY Aspirin EC (Aspirin) 81 Mg Tabdr 81 Mg PO DAILY Coumadin (Warfarin) 5 Mg Tab 5 Mg PO DAILY START ON Wednesday11/02/2016 Reported José Miguel 4-Pack Inj (Albiglutide) 50 Mg Pfpen 50 Mg SQ Q7D Lantus Inj (Insulin Glargine) 1,000 Unit/10 Ml Vial 20 Units SQ AC BREAKFAST Atorvastatin (Atorvastatin Calcium) 80 Mg Tab 80 Mg PO HS Valsartan 320 Mg Tab 320 Mg PO DAILY Calcitriol 0.25 Mcg Cap 0.25 Mcg PO DAILY Isosorbide Mononitrate ER (Isosorbide Mononitrate) 30 Mg Amgdi 30 Mg PO DAILY Review of Systems Except as stated in HPI: all other systems reviewed are Neg Physical Exam Narrative GENERAL: Well-nourished, well-developed male in no acute distress. Afebrile. Ambulatory. SKIN: Focused skin assessment warm/dry. There is a deep laceration of the left second finger with minimal involvement of the nail edge. The left third finger has complete avulsion of the nail, nailbed, and distal tip. HEAD: Normocephalic. EYES: No scleral icterus. No injection or drainage. NECK: Supple, trachea midline. No JVD or lymphadenopathy. CARDIOVASCULAR: Regular rate. Irregular rhythm without murmurs, gallops, or rubs. RESPIRATORY: Coarse lung sounds bilaterally. No accessory muscle use. EXTREMITY: Left hand nontender except over the lacerations. Full range of motion in all joints of the left hand except second DIP. No edema. Less than 2 second capillary refill distally in all fingers except the left second DIP. 2 point discrimination intact except in the left second DIP. Data Data Last Documented VS Vital Signs Date Time Temp Pulse Resp B/P Pulse Ox O2 Delivery O2 Flow Rate FiO2 04/18/17 14:40 98.1 60 16 176/72 98 04/18/17 14:30 Room Air Orders Tetanus/Diphtheria Tox Adult (Tetanus/Di (04/18/17 11:45) Hand, Complete ([id number]) (04/18/17 ) Complete Blood Count With Diff (04/18/17 11:53) Prothrombin Time / Inr (Pt) (04/18/17 11:53) Act Partial Throm Time (Ptt) (04/18/17 11:53) Sodium Chloride 0.9% Flush (Ns Flush) (04/18/17 12:00) Basic Metabolic Panel (Bmp) (04/18/17 11:53) Admit Order (Ed Use Only) (04/18/17 13:45) Consult Hospitalist (04/18/17 ) Electrocardiogram (04/18/17 ) Consent (04/18/17 14:10) NPO (04/18/17 14:10) Lactated Ringer's 1000 Ml Inj (Lr 1000 M (04/18/17 14:15) Type And Screen (04/18/17 14:14) (Hub Use Only)Inp Phy Cons/Ref (04/18/17 14:28) Bupivacaine Pf 0.5% Inj (Marcaine Pf 0.5 (04/18/17 14:50) Neomycin-Polymyxin G.U. Irr (Neosporin G (04/18/17 14:51) Labs Laboratory Tests Test 04/18/17 04/18/17 12:00 14:20 White Blood Count 5.1 TH/MM3 Red Blood Count 3.68 MIL/MM3 Hemoglobin 10.4 GM/DL Hematocrit 32.2 % Mean Corpuscular Volume 87.3 FL Mean Corpuscular Hemoglobin 28.3 PG Mean Corpuscular Hemoglobin 32.4 % Concent Red Cell Distribution Width 18.5 % Platelet Count 202 TH/MM3 Mean Platelet Volume 8.7 FL Neutrophils (%) (Auto) 74.7 % Lymphocytes (%) (Auto) 15.9 % Monocytes (%) (Auto) 7.6 % Eosinophils (%) (Auto) 1.1 % Basophils (%) (Auto) 0.7 % Neutrophils # (Auto) 3.8 TH/MM3 Lymphocytes # (Auto) 0.8 TH/MM3 Monocytes # (Auto) 0.4 TH/MM3 Eosinophils # (Auto) 0.1 TH/MM3 Basophils # (Auto) 0.0 TH/MM3 CBC Comment DIFF FINAL Differential Comment Prothrombin Time 37.6 SEC Prothromb Time International 3.2 RATIO Ratio Activated Partial 33.8 SEC Thromboplast Time Sodium Level 139 MEQ/L Potassium Level 4.9 MEQ/L Chloride Level 107 MEQ/L Carbon Dioxide Level 24.3 MEQ/L Anion Gap 8 MEQ/L Blood Urea Nitrogen 36 MG/DL Creatinine 1.80 MG/DL Estimat Glomerular Filtration 36 ML/MIN Rate Random Glucose 265 MG/DL Calcium Level 8.3 MG/DL Blood Type A POSITIVE Antibody Screen NEGATIVE MDM Medical Decision Making Medical Screen Exam Complete: Yes Emergency Medical Condition: Yes Medical Record Reviewed: Yes Differential Diagnosis Fracture, laceration, open fracture, abrasion Narrative Course 87-year-old right handed male with history of diabetes, on Coumadin for A. fib presents to the emergency room for evaluation of left second and third finger laceration after cutting them on a band saw just prior to arrival. Physical exam reveals partial amputation of left second and third fingers. The second digit has a dusky, partially amputated tip that bleeds when poked with a needle. Intact sensation. The third digit has a full avulsion of the nail and nailbed. There is intact distal sensation and less than 2 second capillary refill distally. Obvious deformity of bone. Patient reports minimal pain. He was updated on tetanus. Wounds were irrigated with 2 bottles of Irramax. CBC and BMP are unremarkable, stable from previous. INR is 3.2. X-ray shows distal tuft fractures of the left second and third fingers. I spoke to the hand surgeon on-call, Dr. Garcia, who came and evaluated this patient. Patient will be taken to the OR for surgical irrigation and repair. Physician Communication Physician Communication I spoke to Dr. Garcia who will admit patient to same day surgery. Diagnosis Primary Impression: Open fracture of finger of left hand Qualified Code: S62.631B - Open displaced fracture of distal phalanx of left index finger, initial encounter Additional Impression: Open fracture of phalanx of finger of left hand Qualified Code: S62.633B - Open displaced fracture of distal phalanx of left middle finger, initial encounter Condition: Stable Luly Goel Apr 18, 2017 12:01
[2017-04-18 12:08] LABS: AUTOMATED NEUTROPHIL # 3.8 TH/MM3 (1.8-7.7); BASOPHIL % 0.7 % (0.0-2.0); EOSINOPHIL # 0.1 TH/MM3 (0-0.4); EOSINOPHIL % 1.1 % (0.0-4.0); HEMATOCRIT 32.2 % (39.0-51.0); HEMO FLAGS DIFF FINAL; LYMPH % 15.9 % (9.0-44.0); LYMPHOCYTE # 0.8 TH/MM3 (1.0-4.8); MEAN CELL VOLUME 87.3 FL (80.0-100.0); MEAN CORPUSCULAR HEMOGLOBIN 28.3 PG (27.0-34.0); MEAN CORPUSCULAR HGB CONC 32.4 % (32.0-36.0); MONO % 7.6 % (0.0-8.0); NEUT % 74.7 % (16.0-70.0); PLATELET COUNT 202 TH/MM3 (150-450); RED BLOOD COUNT 3.68 MIL/MM3 (4.50-5.90); RED CELL DISTRIBUTION WIDTH 18.5 % (11.6-17.2); WHITE BLOOD COUNT 5.1 TH/MM3 (4.0-11.0)
[2017-04-18 12:16] LABS: POTASSIUM 4.9 MEQ/L (3.5-5.1)
[2017-04-18 12:19] LABS: BICARBONATE 24.3 MEQ/L (21.0-32.0)
[2017-04-18 12:22] LABS: APTT (PATIENT) 33.8 SEC (24.3-30.1); INTERNATIONAL NORMALIZED RATIO 3.2 RATIO; PROTHROMBIN TIME - PATIENT 37.6 SEC (9.8-11.6)
--- NOTE | 2017-04-18 12:40 | RADRPT ---
EXAM DATE/TIME: 04/18/2017 12:14 [facility] COMPARISON: No previous studies available for comparison. INDICATIONS : Lacerations to left hand , 2nd and 3rd finger tips, from band saw MEDICAL HISTORY : None. SURGICAL HISTORY : CABG. ENCOUNTER: Initial ACUITY: 1 day PAIN SCORE: 7/10 LOCATION: Left hand FINDINGS: There are fractures involving the second and third distal phalangeal and soft tissue injury of both o f these fingers. No joint dislocation is seen. The rest of the bony structures are grossly intact. Th ere are primary degenerative changes of the first carpal metacarpal joint. CONCLUSION: Soft tissue injury and fractures involving the distal phalanx of the second and third fingers. Ajith Sotelo MD on April 18, 2017 at 12:36 Board Certified Radiologist. This report was verified electronically.
[2017-04-18 12:56] VITALS: BP 154/74; PULSE 64; RESP 16; O2SAT 95
[2017-04-18 14:30] VITALS: BP 173/79; PULSE 65; RESP 16; O2SAT 96
[2017-04-18 14:40] VITALS: BP 176/72; PULSE 60; RESP 16; TEMP 98.1; O2SAT 98
--- NOTE | 2017-04-18 15:13 | MB ---
cc: TERESA NELSON III, M.D. DATE OF CONSULTATION: 04/18/2017. REASON FOR CONSULTATION: HISTORY OF PRESENT ILLNESS: The patient is a very friendly right hand dominant 87-year-old male who was using a table saw earlier today and accidentally cut his left index and middle fingers. He has open fracture of the distal phalanx of the index finger as well as a complex wound and an open tuft fracture of the third finger. He is on Coumadin for atrial fibrillation. PAST MEDICAL HISTORY: 1. Anticoagulant therapy on coumadin. 2. COPD. 3. Atrial fibrillation. 4. Cardiac catheterization in 2014. 5. Elevated cholesterol. 6. Congestive heart failure. 7. Coronary artery disease. 8. Diabetes. 9. Hypertension. 10. Kidney disease. PAST SURGICAL HISTORY: 1. Coronary artery bypass grafting in 2004. 2. Right leg angioplasties x2 with the last one two years ago. 3. Bilateral cataract removals. SOCIAL HISTORY: He does not smoke. ALLERGIES: NO KNOWN DRUG ALLERGIES. MEDICATIONS: 1. Gabapentin. 2. Amiodarone. 3. Baby aspirin. 4. Coumadin 5 milligrams a day. 5. Tanzeum injectable weekly. 6. Lantus insulin. 7. Atorvastatin. 8. Valsartan. 9. Calcitriol. 10. Isosorbide mononitrate. REVIEW OF SYSTEMS: Patient not complaining of any headaches or double or blurry vision. He is not complaining of any chest pain or palpitations. Not complaining of any coughing, wheezing or shortness breath. He is not complaining of any nausea, vomiting or abdominal pain. He is not complaining of any burning, frequency or urgency with urination. He is not complaining of any spine, neck or back pain. He is not complaining of any night sweats, fevers or chills. He is not complaining of any anxiety, depression or suicidal ideations. IMAGING STUDIES: X-rays were performed today and reviewed and these revealed significant arthritic change at the first CMC joint, a fracture near the base of the distal phalanx of the index finger and then a tuft fracture of the middle finger distal phalanx. There is displacement of the index finger distal phalanx. PHYSICAL EXAMINATION: GENERAL: He is well-developed, well-nourished in no apparent distress. VITAL SIGNS: Temperature is 98.1, heart rate 64, blood pressure 154/74, pulse ox 95% on room air. Examination of the left hand reveals a small pressure dressing when I came here but lidocaine air but pictures reveal a complex laceration that involves destruction of the fingernail and possibly the nail bed of the middle finger as well as a laceration through the tip of the index finger which goes through the fingernail and proximally into the dorsal aspect of the finger possibly involving the extensor tendon. There are no other obvious wounds. There is no active bleeding. IMPRESSION: Table saw injury to the left index and middle fingers with open fracture of the index and middle finger distal phalanges. PLAN: The plan is to go to the operating room. We will try to get internal medicine to see him to advise of any perioperative precautions. Will try to avoid using any fresh frozen plasma at this time. Laboratory studies are reviewed. The patient understands the risks to include but are not limited to heart attack, stroke, , bleeding, risk of injury to blood vessels, tendons, nerves and bones and requested we proceed. MD TEVIN Mosher III/CATARINO /2:09 PM /2:51 PM
--- NOTE | 2017-04-18 15:17 | PD.CONS ---
HPI Service [facility] Consult Requested By Hand surgery Reason for Consult Preop medical clearance Primary Care Physician Angelito Tapia MD Diagnoses: History of Present Illness 87 yrs old man with PMHx of A FIB, COPD, DM2 who presented to the ED for evaluation of a laceration of the left 2nd and 3rd digit after cutting himself accidently with a Bandsaw, for which Hand surgery was called patient the ED PA. Patient was found to have INR of 3.2 and states about 2-3 days ago his INR of 1.1 and took one extra 1/2 of 5mg of Coumadin. Patient denies any recent Illness , Shortness of breath or chest pain. He denies any prior complication with Surgery. He also denies any h/o easy bruising or coagulopathy Review of Systems Except as stated in HPI: all other systems reviewed are Neg Past Family Social History Allergies: Coded Allergies: No Known Allergies (Verified , 04/18/17) Past Medical History Cardiac Catheterization: Yes (2014) A.FIB High Cholesterol: Yes Congestive Heart Failure: Yes COPD: Yes Coronary Artery Disease: Yes Diabetes: Yes Hypertension: Yes Renal Failure: Yes (STAGE III) Past Surgical History Body Medical Devices: stent in right leg Cardiac Surgery: Yes ([address] dinero May 2005) Coronary Artery Bypass Graft: Yes (5 VESSEL) Eye Surgery: Yes (BILAT. CATARACT REMOVAL) Thoracic Surgery: Yes (CABG) Other Surgery: Yes Reported Medications Gabapentin 300 Mg Cap 300 Mg PO TID Amiodarone (Amiodarone HCl) 200 Mg Tab 200 Mg PO DAILY Aspirin EC (Aspirin) 81 Mg Tabdr 81 Mg PO DAILY Coumadin (Warfarin) 5 Mg Tab 5 Mg PO DAILY START ON Wednesday11/02/2016 Tanzeum 4-Pack Inj (Albiglutide) 50 Mg Pfpen 50 Mg SQ Q7D Lantus Inj (Insulin Glargine) 1,000 Unit/10 Ml Vial 20 Units SQ AC BREAKFAST Atorvastatin (Atorvastatin Calcium) 80 Mg Tab 80 Mg PO HS Valsartan 320 Mg Tab 320 Mg PO DAILY Calcitriol 0.25 Mcg Cap 0.25 Mcg PO DAILY Isosorbide Mononitrate ER (Isosorbide Mononitrate) 30 Mg Magdi 30 Mg PO DAILY Family History Noncontributory Social History Alcohol Use: Yes (occas. beer) Tobacco Use: No (quit 60 years ago) Substance Use: No Physical Exam Vital Signs Vital Signs Date Time Temp Pulse Resp B/P Pulse Ox O2 Delivery O2 Flow Rate FiO2 04/18/17 14:30 65 16 173/79 96 Room Air 04/18/17 12:56 64 16 154/74 95 Room Air 04/18/17 11:31 98.1 64 16 122/76 94 Physical Exam GENERAL: This is a well-nourished, well-developed patient, in no apparent distress. SKIN: No rashes, ecchymoses or lesions. Cool and dry. HEAD: Atraumatic. Normocephalic. No temporal or scalp tenderness. EYES: Pupils equal round and reactive. Extraocular motions intact. No scleral icterus. No injection or drainage. ENT: Nose without bleeding, purulent drainage or septal hematoma. Throat without erythema, tonsillar hypertrophy or exudate. Uvula midline. Airway patent. NECK: Trachea midline. No JVD or lymphadenopathy. Supple, nontender, no meningeal signs. CARDIOVASCULAR: Regular rate and rhythm without murmurs, gallops, or rubs. RESPIRATORY: Clear to auscultation. Breath sounds equal bilaterally. No wheezes , rales, or rhonchi. GASTROINTESTINAL: Abdomen soft, non-tender, nondistended. No hepato-splenomegaly , or palpable masses. No guarding. MUSCULOSKELETAL: Extremities without clubbing, cyanosis, or edema. No joint tenderness, effusion, or edema noted. No calf tenderness. Negative Homans sign bilaterally. Dressing over left 2nd and 3rd digits NEUROLOGICAL: Awake and alert. Cranial nerves II through XII intact. Motor and sensory grossly within normal limits. Five out of 5 muscle strength in all muscle groups. Normal speech. Laboratory Laboratory Tests Test 04/18/17 12:00 White Blood Count 5.1 Red Blood Count 3.68 Hemoglobin 10.4 Hematocrit 32.2 Mean Corpuscular Volume 87.3 Mean Corpuscular Hemoglobin 28.3 Mean Corpuscular Hemoglobin 32.4 Concent Red Cell Distribution Width 18.5 Platelet Count 202 Mean Platelet Volume 8.7 Neutrophils (%) (Auto) 74.7 Lymphocytes (%) (Auto) 15.9 Monocytes (%) (Auto) 7.6 Eosinophils (%) (Auto) 1.1 Basophils (%) (Auto) 0.7 Neutrophils # (Auto) 3.8 Lymphocytes # (Auto) 0.8 Monocytes # (Auto) 0.4 Eosinophils # (Auto) 0.1 Basophils # (Auto) 0.0 CBC Comment DIFF FINAL Differential Comment Prothrombin Time 37.6 Prothromb Time International 3.2 Ratio Activated Partial 33.8 Thromboplast Time Sodium Level 139 Potassium Level 4.9 Chloride Level 107 Carbon Dioxide Level 24.3 Anion Gap 8 Blood Urea Nitrogen 36 Creatinine 1.80 Estimat Glomerular Filtration 36 Rate Random Glucose 265 Calcium Level 8.3 Result Diagram: 04/18/17 1200 04/18/17 1200 Imaging Last Impressions Hand X-Ray 04/18/17 0000 Signed Impressions: Service Date/Time: Tuesday, April 18, 2017 12:14 - CONCLUSION: Soft tissue injury and fractures involving the distal phalanx of the second and third fingers. Ajith Sotelo MD Assessment and Plan Assessment and Plan 87-year-old man with Left second and third digits laceration and fractures Management per hand surgery and plan for a session and drainage with possible ORIF Patient with coagulopathy INR 3.2 would have preferred treatment with vitamin K Otherwise patient is medically clear for surgery History of atrial fibrillation/diabetes type 2/COPD/hypertension Resume outpatient medications after procedure Thank you for this consultation Code Status Full code Discussed Condition With Patient, , ED Gucci Rollins MD Apr 18, 2017 15:17
--- NOTE | 2017-04-18 17:37 | HHI.PR ---
Immediate Post Op Note Procedure Date: Apr 18, 2017 Pre Op Diagnosis: (1) Open fracture of phalanx of finger of left hand (2) Open fracture of finger of left hand Post Op Diagnosis: Surgeon: Andrés Garcia III Model Making Supervisor(s): Procedure: open reduction an dpinning left IF P3 debridement left IF open fracture debridement left MF open fracture left MF complex wound closure/flap closure Use of image intensifier Estimated blood loss: 1cc Anesthesia: General, Local Drains: None Tourniquet time (min at mmHg) 0 Andrés Garcia III, MD Apr 18, 2017 17:37
--- NOTE | 2017-04-18 18:15 | MP ---
cc: ANDRÉS NELSON III, M.D. DATE OF SURGERY 04/18/2017 PREOPERATIVE DIAGNOSIS Open fracture left index and middle fingers. PROCEDURE 1. Left index finger debridement of open distal phalanx fracture. 2. Left index finger open reduction and pinning. 3. Left middle finger debridement of open fracture distal phalanx. 4. Left middle finger complex wound closure with local tissue rearrangement, flat . 5. Use of image intensifier SURGEON Andrés Mosley III, MD PROCEDURE DETAILS The patient was brought to the operating room and placed on the operating table. After the correct site and side of surgery were verified by members of each team in the room multiple times including the patient and myself, and after adequate preop markings and preoperative written consent were verified by everyone and after adequate preoperative time-out was performed to everyone's satisfaction and after adequate general anesthesia had been achieved, the left upper extremity was prepped and draped in traditional sterile surgical fashion. A 50/50 mixture of 2% plain lidocaine and 0.5% plain Marcaine was infiltrated into the skin and subcutaneous tissue at the level of palm to create digital blocks for the index and middle fingers. Two liters worth of saline irrigation was used to thoroughly flush out the wounds on the index and middle fingers. The middle finger which had the significant destruction of the fingertip and open distal phalanx, I placed the smallest finger from size six sterile glove around the finger for a bit of hemostasis. The axillary tourniquet was never used. The index finger was then addressed. Devitalized bone was debrided sharply and extracted. The distal phalanx was then pinned in place using 0.028 cm K-wires under mini C-arm guidance. They were tailored to length, cut and a Jurgan ball was applied. The complex laceration around the finger was then closed using 4-0 chromic sutures. There was no active bleeding from the index finger and the tip was pink and had capillary refill of 2 seconds. The middle finger was then addressed. Devitalized bone and some prominent bone was then debrided back. The flaps were created radially, ulnarly and volarly and then closure was obtained using multiple interrupted 4-0 chromic. The finger tourniquet was released and there was some continued oozing from the open wound. Therefore a small amount of Gelfoam with thrombin was applied and then Xeroform was applied around the finger holding the Gelfoam in place creating a mold to the dressing that was not constricting. Final x-rays were obtained. A soft, bulky dressing was applied and a volar immobilizing short-arm splint was made usual in the fashion. The patient was awakened from anesthesia and transported to Post Anesthesia Care Unit awake and in stable condition at the end of the case. The sponge, needle, and instrument counts were correct at the end of the case as reported by nurses in the room. MD TEVIN Mosher III/NETTIE /5:48 PM /6:05 PM
[2017-04-18 19:03] VITALS: BP 146/73; PULSE 61; RESP 16; TEMP 97.1; O2SAT 100
--- NOTE | 2017-04-20 08:38 | EKG ---
Date Performed: 04/18/2017 Time Performed: 14:19:17 PTAGE: 87 years EKG: SUPRAVENTRICULAR RHYTHM PROLONGED QT INTERVAL ABNORMAL ECG PREVIOUS TRACING : 11/11/2016 17.28 DOCTOR: Katya Casey Interpretating Date/Time 04/20/2017 08:35:23
== END | disposition home or self-care (01) ==
LOC: PHEFT 11:25 → PHSDC 14:57
PROVIDERS: ATTEND Orthopaedic Surgery Hand Surgery
DX: S62.631B Displaced fracture of distal phalanx of left index finger, initial encounter for open fracture (principal); S62.633B Displaced fracture of distal phalanx of left middle finger, initial encounter for open fracture; I13.0 Hypertensive heart and chronic kidney disease with heart failure and stage 1 through stage 4 chronic kidney disease, or unspecified chronic kidney disease; N18.3 Chronic kidney disease, stage 3 (moderate); I50.9 Heart failure, unspecified; E11.22 Type 2 diabetes mellitus with diabetic chronic kidney disease; E78.00 Pure hypercholesterolemia, unspecified; I25.10 Atherosclerotic heart disease of native coronary artery without angina pectoris; I48.91 Unspecified atrial fibrillation; J44.9 Chronic obstructive pulmonary disease, unspecified; Z95.1 Presence of aortocoronary bypass graft; Z79.01 Long term (current) use of anticoagulants; Z79.4 Long term (current) use of insulin; Z79.82 Long term (current) use of aspirin; W31.2XXA Contact with powered woodworking and forming machines, initial encounter; Z23 Encounter for immunization; Z01.818 Encounter for other preprocedural examination
CPT/HCPCS: 01830; 11012; 26765; 73130; 76000; 80048; 82948; 85025; 85610; 85730; 86850; 86900; 86901; 90471; 90714; 93005; 99285; J0690; J1100; J1580; J2250; J2405; J3010; J7120; J7613

== ENCOUNTER 2017-09-27 08:53 | Emergency (ER) | payer OTHER ==
[~2017-09-27] VITALS: Ht 170.2 cm; Wt 73.0 kg
[~2017-09-27 08:53] MED LIST changes: -ASPI81TA11 PO; +ASPI81TA23 PO; -ATOR1TAB18 PO; +ATOR80TA45 PO; -BUPIVACAINE HCL PF 0.5% 30 ML VIAL ONE; -CEPH-459 PO; -CHLORHEXIDINE GLUCONATE 2 % 1 PACK (2 CLOTHS) TOPICAL PRN; -DEXAMETHASONE SOD PHOS 4 MG/ML VIAL ONE; -FAMOTIDINE 20 MG/2 ML VIAL ONE; -GELFOAM SIZE 100 ONE; -GENTAMICIN 80 MG PREMIX 100 ML ONE; -INSULIN HUMAN REGULAR 1,000 UNITS/10 ML VIAL SQ PRN; -LACTATED RINGER'S 1000 ML INJ 1,000 ML IV SCH; -LACTATED RINGER'S 1000 ML IV PRN; -LIDOCAINE HCL 2% 50 ML VIAL INFIL ONE; -METOPROLOL TARTRATE 25 MG TAB PO PRN; -MIDAZOLAM HCL 2 MG/2 ML VIAL ONE; -NEOMYCIN/POLYMYXIN 1 ML G.U. IRRIGANT IR ONE; -NEOMYCIN/POLYMYXIN 1 ML G.U. IRRIGANT ONE; -NORC5TAB PO; -NORMOSOL R INJ 1,000 ML IV ONE; -ONDANSETRON HCL 4 MG/2 ML VIAL ONE; -POVIDONE IODINE 5% (ANTISEPSIS KIT) 4 APPLICATIONS EACH NARE PRN; -PROPOFOL 200 MG/20 ML AMP IV ONE; -RESP: ALBUTEROL 2.5 MG/3 ML NEB (PRN) ONE; -SODIUM CHLORID 0.9% 500 ML IV PRN; -SODIUM CHLORIDE 0.9% FLUSH 10 ML FLUSH IVF PRN; -SODIUM CHLORIDE 0.9% INJ 50 ML ONE; -TETANUS/DIPHTHERIA TOXOID ADULT 0.5 ML VIAL IM ONE; -THROMBIN (TOPICAL) 5,000 UNIT VIAL ONE; -ceFAZolin INJ 1,000 MG VIAL ONE; -ePHEDrine/NS 25 MG/5 ML SYR IV ONE; -fentaNYL CITRATE 250 MCG/5 ML AMP ONE
[2017-09-27 08:57] VITALS: BP 179/72; PULSE 76; RESP 17; TEMP 97.7; O2SAT 95
[2017-09-27] MEDS ORDERED: LEVO25TA4 PO (09:19)
[2017-09-27] MEDS ORDERED: LANTINJ SQ (09:19)
[2017-09-27] MEDS ORDERED: GLIP5TAB8 PO (09:19)
--- NOTE | 2017-09-27 09:32 | PD ---
HPI Chief Complaint: Pain: Acute or Chronic Time Seen by Provider: 09:18 Travel History International Travel<30 days: No Contact w/Intl Traveler<30days: No Traveled to known affect area: No History of Present Illness HPI This 87-year-old male has noted some discomfort in the right groin area. He says the discomfort is worse when he coughs. He has not noted any difference between standing or lying. Yesterday the pain seemed a little more persistent. There is been no vomiting. He is not having discomfort today. He is concerned because he is going to have a cardiac catheterization on which may be done through the groin [facility] Past Medical History Hx Anticoagulant Therapy: Yes ([facility]-OFF [facility] FOR PROCEDURE) Asthma: No Autoimmune Disease: No Anxiety: No Depression: No Heart Rhythm Problems: Yes (afib) Cancer: No Cardiac Catheterization: Yes (2014) Cardiovascular Problems: Yes (A.FIB) High Cholesterol: Yes Chest Pain: No Congestive Heart Failure: Yes COPD: Yes Coronary Artery Disease: Yes Diabetes: Yes Patient Takes Glucophage: Yes Diminished Hearing: No Endocrine: Yes Gastrointestinal Disorders: No GERD: No Glaucoma: No Genitourinary: Yes Hepatitis: No Hiatal Hernia: No Hypertension: Yes Immune Disorder: No Implanted Vascular Access Dvce: Yes Kidney Stones: No Musculoskeletal: No Neurologic: No Psychiatric: No Reproductive: No Respiratory: Yes (copd) Integumentary: No Renal Failure: Yes (STAGE III) Sickle Cell Disease: No Sleep Apnea: No Thyroid Disease: No Ulcer: No Tetanus Vaccination: < 5 Years Influenza Vaccination: Yes Past Surgical History Abdominal Surgery: No Body Medical Devices: stent in right leg Cardiac Surgery: Yes ([address] dinero May 2005) Coronary Artery Bypass Graft: Yes (5 VESSEL) Eye Surgery: Yes (BILAT. CATARACT REMOVAL) Genitourinary Surgery: No Neurologic Surgery: No Thoracic Surgery: Yes (CABG) Other Surgery: Yes Social History Alcohol Use: Yes (occas. beer) Tobacco Use: No (quit 60 years ago) Substance Use: No Allergies-Medications (Allergen,Severity, Reaction): Coded Allergies: No Known Allergies (Verified Adverse Reaction, Unknown, 09/27/17) Reported Meds & Prescriptions Reported Meds & Active Scripts Active Amiodarone (Amiodarone HCl) 200 Mg Tab 200 Mg PO DAILY Aspirin EC (Aspirin) 81 Mg Tabdr 81 Mg PO DAILY Coumadin (Warfarin) 5 Mg Tab 5 Mg PO DAILY START ON Wednesday11/02/2016 Reported Levothyroxine (Levothyroxine Sodium) 25 Mcg Tab 25 Mcg PO DAILY Lantus Solostar Pen Inj (Insulin Glargine) 300 Unit/3 Ml Pen 28 Units SQ Glipizide 5 Mg Tab 5 Mg PO DAILY Take 30 minutes before a meal Tanzeum 4-Pack Inj (Albiglutide) 50 Mg Pfpen 50 Mg SQ Q7D Atorvastatin (Atorvastatin Calcium) 80 Mg Tab 80 Mg PO HS Valsartan 320 Mg Tab 320 Mg PO DAILY Calcitriol 0.25 Mcg Cap 0.25 Mcg PO DAILY Isosorbide Mononitrate ER (Isosorbide Mononitrate) 30 Mg Magdi 30 Mg PO DAILY Review of Systems General / Constitutional: No: Fever, Chills HENT: No: Headaches Cardiovascular: No: Chest Pain or Discomfort Gastrointestinal: No: Nausea, Vomiting, Diarrhea, Abdominal Pain Genitourinary: No: Dysuria Skin: No Rash, No Itching Neurologic: No: Weakness Endocrine: No: Heat Intolerance, Cold Intolerance Hematologic/Lymphatic: No: Easy Bruising Physical Exam Narrative GENERAL well-developed male SKIN: Focused skin assessment warm/dry. HEAD: Atraumatic. Normocephalic. EYES: Pupils equal and round. No scleral icterus. No injection or drainage. ENT: No nasal bleeding or discharge. Mucous membranes pink and moist. NECK: Trachea midline. No JVD. GASTROINTESTINAL: Abdomen soft, non-tender, nondistended. Hepatic and splenic margins not palpable. On inspecting the right inguinal area there is no obvious swelling. When I asked the patient to cough there is a slight bulge palpable. This can also be felt on examining the inguinal canal through the scrotum MUSCULOSKELETAL: No obvious deformities. No clubbing. No cyanosis. No edema. NEUROLOGICAL: Awake and alert. No obvious cranial nerve deficits. Motor grossly within normal limits. Normal speech. PSYCHIATRIC: Appropriate mood and affect; insight and judgment normal. Data Data Last Documented VS Vital Signs Date Time Temp Pulse Resp B/P (MAP) Pulse Ox O2 Delivery O2 Flow Rate FiO2 09/27/17 08:57 97.7 76 17 179/72 (107) 95 MDM Medical Decision Making Medical Screen Exam Complete: Yes Emergency Medical Condition: Yes Medical Record Reviewed: Yes Differential Diagnosis Differential includes right inguinal hernia, muscular strain Narrative Course I believe the patient has a mild right inguinal hernia. There is no evidence of incarceration or strangulation at this time. I don't think it should interfere with his post cardiac catheterization I have explained to him that if he has increased swelling at the site that he needs to come emergently, otherwise follow-up with his own primary care physician Diagnosis Primary Impression: Right inguinal hernia Additional Instructions: Follow-up with your primary care physician, return if increased swelling or vomiting Disposition: 01 DISCHARGE HOME Condition: Stable Leon Condon MD Sep 27, 2017 09:32
== END 2017-09-27 09:39 | disposition home or self-care (01) ==
LOC: PHED 08:53
DX: K40.90 Unilateral inguinal hernia, without obstruction or gangrene, not specified as recurrent (principal)
CPT/HCPCS: 99281

== ENCOUNTER 2017-09-30 07:47 | Day surgery (SDC) | payer OTHER ==
[~2017-09-30] VITALS: Ht 170.2 cm; Wt 72.5 kg
[~2017-09-30 07:47] MED LIST changes: -GABA300C5 PO; +GLIP5TAB8 PO; +LANTINJ SQ; -LANTUS2P SQ; +LEVO25TA4 PO
[2017-09-30] MEDS ORDERED: IOHEXOL 350 MG/ML 100 ML BTL (for Cath Lab) OTHER ONE (07:48)
[2017-09-30] MEDS ORDERED: NS 1000P @30 MLS/HR (KVO) IV SCH (08:30)
[2017-09-30 08:52] VITALS: BP 149/77; PULSE 70; RESP 18; TEMP 98; O2SAT 98
[2017-09-30 08:55] LABS: AUTOMATED NEUTROPHIL # 4.6 TH/MM3 (1.8-7.7); BASOPHIL # 0.1 TH/MM3 (0-0.2); BASOPHIL % 1.1 % (0.0-2.0); EOSINOPHIL # 0.2 TH/MM3 (0-0.4); EOSINOPHIL % 3.3 % (0.0-4.0); HEMATOCRIT 33.5 % (39.0-51.0); HEMO FLAGS DIFF FINAL; LYMPH % 19.9 % (9.0-44.0); LYMPHOCYTE # 1.4 TH/MM3 (1.0-4.8); MEAN CELL VOLUME 89.7 FL (80.0-100.0); MEAN CORPUSCULAR HEMOGLOBIN 28.9 PG (27.0-34.0); MEAN CORPUSCULAR HGB CONC 32.2 % (32.0-36.0); MONO % 10.5 % (0.0-8.0); NEUT % 65.2 % (16.0-70.0); PLATELET COUNT 252 TH/MM3 (150-450); RED BLOOD COUNT 3.73 MIL/MM3 (4.50-5.90); RED CELL DISTRIBUTION WIDTH 16.4 % (11.6-17.2)
[2017-09-30] MEDS ORDERED: SAW450CA2 PO (08:55)
[2017-09-30] MEDS ORDERED: LANTUS2P SQ (08:55)
[2017-09-30] MEDS ORDERED: prevagen PO (08:55)
[2017-09-30] MEDS ORDERED: VITA2000 PO (08:55)
[2017-09-30] MEDS ORDERED: VITA10002 PO (08:55)
[2017-09-30] MEDS ORDERED: MULT-65 PO (08:55)
[2017-09-30 09:07] LABS: APTT (PATIENT) 27.4 SEC (24.3-30.1); INTERNATIONAL NORMALIZED RATIO 1.3 RATIO; PROTHROMBIN TIME - PATIENT 12.7 SEC (9.8-11.6)
[2017-09-30 09:17] LABS: BICARBONATE 23.7 MEQ/L (21.0-32.0)
[2017-09-30] MEDS ORDERED: MIDAZOLAM HCL 2 MG/2 ML VIAL ONE (09:58)
[2017-09-30] MEDS ORDERED: HEPARIN-NS/PF INJ 1,000 ML ONE (10:08)
--- NOTE | 2017-09-30 11:41 | CATHPROC ---
[employer] HIS Report Study Information Study Number Admission Scheduled Start Study Start [id number] Sep 30 2017 7:47AM 09/30/2017 Sep 30 2017 9:53AM [place] [facility] Cardiac Catheterization Admit Source Facility Department Other [facility] Physician and Clinical Staff Initial David Ordoñez Supervisor Inspection Department Anayeli Rubin,RN Other Lucy Caceres,ROBI Recorder Anayeli Lau,RT(R) ScrFadia Zaidi RT(R) (BS) Procedures Performed Procedure Location (Site) Vessel Name Coronary Angiograms LCA Left Coronary Coronary Angiograms RCA Right Coronary Coronary Angiograms THAPA Graft Left Coronary Coronary Angiograms SVG-DIAG Left Coronary Coronary Angiograms SVG-OM CIRC L Heart Cath Wire insertion Fem Art (left) Femoral Art Equipment Time Felt Strip Finisher Description Size Mfg Part Number Used/Scraped TRANSDUCER, TRUWAVE [id number] 10:39 Three Screen Games * Used W/NERISCK *[id number] INTRODUCER SET, 10:39 [employer] FR 5 [id number] *[id number] Used MICROPUNCTURE, STIFFENED [id number] *[id number] 534-520T *[id number] [id number] *[id number] 534-521T *[id number] [id number] *[id number] WIRE, HYDROSTEER 150CM [id number] 10:52 DAIG/[place]. [place] MEDICAL 150CM Used ANGLED GLIDE *[id number] 10:39 [employer] INDUSTRIES PACK, CCL CUSTOM * Used *[id number] 10:39 [employer] MEDICAL WIRE, 3MMJ .035 180CM 180CM Used *[id number] 10:39 NAMIC MANIFOLD, 4 PORT * Used *[id number] 10:39 [employer]COMED OMNIPAQUE, 350 MG, 150ML 150ML [id number] Used [id number] 10:39 [employer] MEDICAL BLANKET,WARM AIR CCL * Used *[id number] 10:39 TERUMO MEDICAL SHEATH, FR5 TERUMO (10CM) FR 5 Used *[id number] Equipment Model, Serial, Lot Number and Expiration Data Description Model Number Serial Number Lot Number Expiration Date WIRE, HYDROSTEER 150CM [id number] 04-23-2020 ANGLED GLIDE History: Current Medications Medication Dosage/Unit Route Frequency Last Date/Time Taken Statins (any) Imdur ASA Glypizide Insulin History: Allergies Allergy Reaction No Known Allergies History: Risk Factors Family History of Hypertension Dyslipidemia Previous CO Previous Heart Failure Premature CAD Yes Yes No No Yes Prior Valve Prior PCI Prior CABG Prior CABGDate Surgery No No Yes 10/25/2004 Cerebrovascular Peripheral Artery Chronic Lung On Dialysis Diabetes Diabetes Therapy Disease Disease Disease No No Yes Yes Yes Oral History: Risk Factors Selection Items Current Smoker History: Symptoms/Diagnosis Selection Items Chest pain History: CV Disease Selection Items Known CAD History: Stress Tests Stress or Imaging Studies Performed Yes Standard Exercise Stress Test No Stress Echo No Stress Test SPECT Stress Test SPECT Result Stress Test SPECT Ischemia Risk/Extent Yes Positive Intermediate Stress Test CMR No Cardiac CTA Coronary Calcium Score No No History: Other Disease Selection Items CAD History: Other Current Smoker Method Quit No Cigarettes 55 Years Ago Labs Hgb (g/dl) Hct (%) RBC (MIL/MM3) WBC (l/cumm) Platelets (thousands) 11.60-17.00 35.00-51.00 4.00-5.90 4.00-11.00 150.00-450.00 10.8 33.5 3.7 7 252 Glucose (mg/dl) BUN (mg/dl) Creatinine (mg/dl) BUN:Creatinine (1:x) 74.00-106.00 7.00-18.00 0.50-1.30 10.00-20.00 80 30 1.5 20 Na (meq/l) K (meq/l) Cl (meq/l) CO2 (mmol/L) Ca (mg/dl) 136.00-145.00 3.50-5.10 98.00-107.00 21.00-32.00 8.50-10.10 141 4 108 23.7 8.5 PT (sec) PTT (sec) INR (PTT:PT) 9.80-11.60 24.30-30.10 0.90-1.10 12.7 27.4 1.3 CPK-MB (ng/ML) 0.50-3.60 Not Drawn Medication Medication Total Dose (Bolus/Oral) Medication Total Dosage/Unit 1% XYLOCAINE 20 mL FENTANYL 25 mcg VERSED 0.5 mg Medications (Bolus/Oral) Medication Time Given Dosage/Unit Administered By Reason VERSED 09/30/2017 10:35:47 AM 0.5 mg Anayeli Rubin 0.5 mg VERSED given in lab by Anayeli Rubin, RN in Left Antecubital via Peripheral IV. FENTANYL 09/30/2017 10:35:57 AM 25 mcg Anayeli Rubin 25 mcg FENTANYL given in lab by Anayeli Rubin, ROBI via Peripheral IV. 1% XYLOCAINE 09/30/2017 10:36:22 AM 20 mL David Leos 20 mL 1% XYLOCAINE given in lab by David Leos in Left Groin via Subcutaneous. Medication (Drip) Medication Time Given Dosage/Unit Concentration/Unit Diluent (ml) Solution IV Solutions 09/30/2017 10:01:45 AM 0 mL (IV) 500 NaCl .9 Patient arrived on IV Solutions in Left Antecubital via Peripheral IV. Pump/Drip Flow = 20 ml/hr usin g NaCl .9. Initial Case Assessment Cardiovascular HR Rhythm Chest Pain 67 reg 0 Edema Present Skin color Skin Moderate Normal Warm Dry Circulatory - Right Pulses Dorsalis Pedis Posterior Tibial Femoral d d 1 Scale (0,1,2,3,4,d) Circulatory - Left Pulses Dorsalis Pedis Posterior Tibial Femoral 1 d 1 Scale (0,1,2,3,4,d) Circulatory - Lower Extremities Color Lower Right Color Lower Left Normal Normal Neurological State Oriented to time-place- Alert Moves all extremities person Respiration - General Respiration Rate SpO2 (%) (B/min) 20 97 Chronological Log Time Study Chronological Log 9:50:00 Patient arrived via Bed. 9:51:00 Patient Name, D.O.B, / Armband Verified By R.N. 9:52:00 Consent signed by the physician and the patient and verified by the R[facility] staff. 9:53:00 Pre-op and post- op instructions given; patient acknowledges understanding of instructions. Vitals capture started with the following parameters, Patient=Adult, Interval=5 min, Initial Pr lfdikm=398 mmHg, 9:53:22 Deflation Rate=5 mmHg, Cuff placed on Left Arm 9:54:00 Verbal Stimulation=2 Physical Stimulation=2 Airway=2 Respiration=2 TOTAL=8. (0=absent, 1=li mited, 2=present) 9:54:39 HR=75 bpm, FLCS=760/89 mmhg, SpO2=98.0 %, Resp=0 B/min, Pain=0, Adriel=10, Vasquez=2 9:55:00 Patient has been NPO for Less than 6Hrs. 9:55:59 Reference ECG taken 9:56:00 Skin Breakdown-lt hand 9:57:00 Patient Warmer Placed on the Table. 9:58:00 A # 20 IV was noted in the Antecubital (left). Grade = 0 9:59:03 HR=67 bpm, IRED=783/88 mmhg, SpO2=98.0 %, Resp=20 B/min, Pain=0, Adriel=10, Vasquez=2 10:01:45 Patient arrived on IV Solutions in Left Antecubital via Peripheral IV. Pump/Drip Flow = 20 ml/hr using NaCl .9. 10:02:00 History and physical on the chart or being dictated. Assessment: Initial Case, HR=67 BPM, Rhythm=reg, Chest Pain=0, Edema=Mod, Color=Normal, Skin = Warm, Dry Right Pulses: Daniel Ped=d, Post Tib=d, Femoral=1 Left Pulses: Daniel Ped=1, Post Tib=d, Femoral=1 10:02:04 Lower Right Extremities: Color=Normal Lower Left Extremities: Color=Normal Neurological: State=Alert, Ox3, [place]ASM[place] Respiration: Resp=20 B/min, SpO2=97 % 10:04:04 HR=69 bpm, CZDR=878/87 mmhg, SpO2=98.0 %, Resp=16 B/min, Pain=0, Adriel=10, Vasquez=2 10:05:08 Bilateral groins prepped with 2% chlorhexidine, and draped after a 3 minute waiting time. 10:05:12 MD paged 10:08:57 MD paged 10:09:03 HR=66 bpm, PMCL=126/93 mmhg, SpO2=98.0 %, Resp=16 B/min, Pain=0, Adriel=10, Vasquez=2 10:11:31 Pressure channel 1 zeroed. 10:12:30 MD responded 10:14:04 HR=66 bpm, WUOS=061/89 mmhg, SpO2=98.0 %, Resp=15 B/min, Pain=0, Adriel=10, Vasquez=2 10:15:45 MD arrived. 10:19:06 HR=65 bpm, QQTX=380/81 mmhg, SpO2=97.0 %, Resp=15 B/min, Pain=0, Adriel=10, Vasquez=2 10:24:03 HR=63 bpm, WMER=789/88 mmhg, SpO2=97.0 %, Resp=16 B/min, Pain=0, Adriel=10, Vasquez=2 10:29:06 HR=64 bpm, GTIN=722/83 mmhg, SpO2=97.0 %, Resp=13 B/min, Pain=0, Adriel=10, Vasquez=2 10:34:01 HR=68 bpm, XCKX=701/93 mmhg, SpO2=97.0 %, Resp=10 B/min, Pain=0, Adriel=10, Vasquez=2 Time Out. Correct patient, correct procedure, correct physician, power injector not loaded with contrast with surgical 10:34:38 team present. Time Out Concurred by MD and individual staff in procedure. 10:35:06 Case Start 10:35:47 0.5 mg VERSED given in lab by Anayeli Rubin RN in Left Antecubital via Peripheral IV. 10:35:57 25 mcg FENTANYL given in lab by Anayeli Rubin, ROBI via Peripheral IV. 10:36:22 20 mL 1% XYLOCAINE given in lab by David Leos in Left Groin via Subcutaneous. 10:38:13 Access site was Left Femoral Artery. 10:38:53 A wire was inserted via Fem Art (left). 10:39:01 A SHEATH, FR5 TERUMO (10CM) FR 5 was advanced into the Fem Art (left) using the Percutaneou s technique. 10:39:06 HR=67 bpm, KECX=334/87 mmhg, SpO2=95.0 %, Resp=14 B/min, Pain=0, Adriel=10, Vasquez=2 Recorded Pressure: Ao, HR=69, Condition=Condition 1 10:39:27 (Aorta) Ao 178/74/114 A JR 4.0 INFINITI CATHETER FR 5 was advanced over a wire. OMNIPAQUE, 350 MG, 150ML 150ML was us ed for 10:40:14 injections. 10:42:52 The RCA was injected and visualized at various angles. OMNIPAQUE, 350 MG, 150ML 150ML used . 10:44:07 HR=65 bpm, RDQZ=070/84 mmhg, SpO2=91.0 %, Resp=15 B/min, Pain=0, Adriel=10, Vasquez=2 10:44:25 The SVG-DIAG was injected and visualized at various angles. OMNIPAQUE, 350 MG, 150ML 150ML used. 10:49:06 HR=64 bpm, DSJU=945/85 mmhg, SpO2=91.0 %, Resp=16 B/min, Pain=0, Adriel=10, Vasquez=2 10:51:17 The THAPA Graft was injected and visualized at various angles. OMNIPAQUE, 350 MG, 150ML 150M L used. 10:52:01 A WIRE, HYDROSTEER 150CM ANGLED GLIDE 150CM was inserted via Fem Art (left). 10:54:09 HR=64 bpm, ASVW=017/85 mmhg, SpO2=95 %, Resp=15 B/min, Pain=0, Adriel=10, Vasquez=2 10:55:12 Wire removed 10:55:42 A WIRE, 3MMJ .035 180CM 180CM was inserted via Fem Art (left). After removing the current catheter a AL 1 INFINITI CATHETER FR 5 was advanced over a WIRE, 3M MJ .035 180CM 10:57:52 180CM. 10:58:00 The SVG-OM was injected and visualized at various angles. OMNIPAQUE, 350 MG, 150ML 150ML u sed. After removing the current catheter a JL 4.0 INFINITI CATHETER FR 5 was advanced over a WIRE, 3MMJ .035 180CM 10:58:35 180CM. 10:59:06 HR=64 bpm, BTUH=197/88 mmhg, SpO2=95.0 %, Resp=14 B/min, Pain=0, Adriel=10, Vasquez=2 11:00:22 The LCA was injected and visualized at various angles. OMNIPAQUE, 350 MG, 150ML 150ML use d. 11:04:07 HR=63 bpm, JVRD=322/85 mmhg, SpO2=92.0 %, Resp=15 B/min, Pain=0, Adriel=10, Vasquez=2 After removing the current catheter a PIGTAIL ANG. INFINITI CATHETER FR 5 was advanced over a WIRE, 3MMJ .035 11:05:29 180CM 180CM. 11:09:08 HR=57 bpm, IUXK=291/78 mmhg, SpO2=95.0 %, Resp=18 B/min, Pain=0, Adriel=10, Vasquez=2 Recorded Pressure: LV, HR=62, Condition=Condition 1 11:09:23 (Left Ventricle) LV 166/18/24 Recorded Pressure: LV, Ao, HR=62, Condition=Condition 1 11:09:35 (Left Ventricle) LV 168/12/23, (Aorta) Ao 167/68/107 11:10:04 Catheter was removed 11:10:31 Case End 11:10:33 Sterile dressing applied to site 11:10:34 No case complications noted. 11:10:35 Cine recording checked. 11:10:39 Bedside Report will be given. 11:10:40 Contrast Scanned 11:10:43 A Left Heart Cath was performed. 11:10:46 Clinical correlaton risk stratification. 11:14:09 HR=62 bpm, ZCVY=697/82 mmhg, SpO2=96.0 %, Resp=17 B/min, Pain=0, Adriel=10, Vasquez=2 End Study - Contrast Media Used In Study Contrast Total Opened (mL) Total Used (mL) Total Wasted (mL) Omnipaque 85 85 0 End Study - Maximum Contrast Load Max Contrast Load (mL) 241.7 End Study - Radiation Exposure Fluoro Time (minutes) 10.0 End Study - Patient Disposition Complications Transferred To No Outpatient Bed
[2017-09-30] MEDS ORDERED: ONDANSETRON HCL 4 MG/2 ML VIAL IV PUSH PRN (11:45)
[2017-09-30] MEDS ORDERED: ATROPINE SULFATE 1 MG/ML VIAL IV PUSH PRN (11:45)
--- NOTE | 2017-09-30 17:33 | EKG ---
Date Performed: 09/30/2017 Time Performed: 08:44:32 PTAGE: 87 years EKG: Supraventricular rhythm which is regular. Baseline wandering artifact limits accuracy of in terpretation. Possible faulty V2 - omitted from analysis Prolonged QT interval Lateral T wave changes are nonspecific Abnormal ECG PREVIOUS TRACING : 04/18/2017 14.19 DOCTOR: Mohsen Núñez Interpretating Date/Time 09/30/2017 17:33:09
--- NOTE | 2017-10-01 05:58 | MA ---
cc: DAVID GONZALEZ DO DATE OF PROCEDURE September 30, 2017 PROCEDURE Left heart catheterization, coronary angiogram, bypass angiogram, moderate sedation 25 minutes. PREPROCEDURE DIAGNOSIS Shortness of breath, abnormal stress test, history of CABG x5. POSTPROCEDURE DIAGNOSIS Coronary artery disease. History of CABG x5 (2/5 grafts patent). MEDICATIONS 1. Versed 0.5 mg. 2. Fentanyl 25 mcg. CONTRAST USED 85 cc. FLUOROSCOPY 10 minutes. MODERATE SEDATION 25 minutes. ESTIMATED BLOOD LOSS 10 cc. 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 He does have significant shortness of breath but felt that this may be due somewhat to his COPD. Because of the abnormal stress test and his shortness of breath which we were unsure if due to his COPD or coronary artery disease, he was recommended cardiac catheterization. The risks, benefits and alternatives were explained to him and he consented as such. He was brought to lab and prepped in the usual sterile fashion. The left femoral artery was accessed using a modified Seldinger technique and placement of a 5-Welsh sheath. This was easily aspirated and flushed. A JR-4 was advanced over a J-wire to the ascending aorta and used for selective angiography of a right coronary artery system. This was then used for selective angiography of the saphenous vein graft to the LAD. This was then used for selective angiography of the left subclavian system which showed no flow into the THAPA which was known to be atretic from before. This was exchanged for an AL-1 which was used for selective angiography of the saphenous vein graft to obtuse marginal. This was exchanged for a JL-4 which was used for selective angiography of the left coronary artery system. This was exchanged for an angled pigtail which was used across the aortic valve in measurement of left ventricular pressure. This was pulled back across the aortic valve showing no significant gradient of aortic stenosis. The sheath was sutured in place with the plan to remove once in the holding area and pressure held for hemostasis. The patient left the laboratory phlebotomist cardiovascularly stable. FINDINGS LEFT MAIN: Normal-sized vessel with adequate reflux and no disease. It bifurcates into an LAD and circumflex. LAD: Normal-size vessel with 30% disease throughout the proximal portion. It is 100% occluded in the midportion. LEFT CIRCUMFLEX: 100% occluded in the proximal portion. RCA: Normal-sized vessel with diffuse 50% disease throughout the proximal portion and multiple lesions throughout the distal portion including two 70% lesions as well as a 90% lesion in the PDA. This does supply collaterals to a distal obtuse marginal. Collaterals from the left coronary artery system do supply to the distal PDA and PLV. THAPA TO DIAGONAL: Known to be atretic before with no flow noted at this time, presumed occluded. SVG to LAD: Patent with no significant disease. Flow in the LAD goes both retrograde and antegrade which fills a diagonal as well as collaterals to a PLV and PDA. There is a previous bypass that comes off of the SVG to the PLV and PDA and is occluded. SVG TO OBTUSE MARGINAL: With no significant disease. SVG TO PLV/PDA: Previously off the SVG to LAD, and is occluded which was known previously. LVEDP: 23. IMPRESSIONS 1. Shortness of breath felt to be due to his COPD. 2. Coronary artery disease with a history of CABG x5 (2/5 grafts patent). RECOMMENDATIONS 1. Mr. Leone appears to have significant disease although does not appear changed in comparison to the report from 2009. 2. He will continue on medical management for his significant coronary artery disease. 3. He will restart his Coumadin therapy tomorrow. 4. If he does start having significant chest pain or further shortness of breath, consideration could be made for intervention on his distal RCA and PDA, although this will would be complex intervention but overall his stress test shows infarction of this area with mild leander-infarct ischemia. Thank you for allowing me to see Collins Leone. If you have any questions, please do not hesitate to call. David Gonzalez DO VGP/SSB /11:02 PM /5:42 AM
== END 2017-09-30 16:27 | disposition home or self-care (01) ==
LOC: HCAT 07:47 → HDIC 07:47 → HCAT 16:27
PROVIDERS: ATTEND Nuclear Medicine Nuclear Cardiology
DX: I25.10 Atherosclerotic heart disease of native coronary artery without angina pectoris (principal); I10 Essential (primary) hypertension; E11.9 Type 2 diabetes mellitus without complications; E78.5 Hyperlipidemia, unspecified; J44.9 Chronic obstructive pulmonary disease, unspecified; Z95.1 Presence of aortocoronary bypass graft; Z79.01 Long term (current) use of anticoagulants; Z79.4 Long term (current) use of insulin; Z79.82 Long term (current) use of aspirin
CPT/HCPCS: 80048; 85025; 85610; 85730; 93005; 93459; 99152; 99153; C1769; C1893; J1644; J2250; J3010; Q9967

== ENCOUNTER 2017-10-22 12:27 | Observation (INO) | payer OTHER ==
[~2017-10-22] VITALS: Ht 170.2 cm; Wt 74.6 kg
[~2017-10-22 12:27] MED LIST changes: +LANTUS2P SQ; +MULT-65 PO; +SAW450CA2 PO; +VITA10002 PO; +VITA2000 PO; +prevagen PO
[2017-10-22 12:36] VITALS: BP 136/66; PULSE 71; RESP 16; TEMP 97.5; O2SAT 97
--- NOTE | 2017-10-22 13:02 | PD ---
HPI Chief Complaint: Respiratory Symptoms Time Seen by Provider: 12:42 Travel History International Travel<30 days: No Contact w/Intl Traveler<30days: No Traveled to known affect area: No History of Present Illness HPI This 87-year-old male complaining of coughing up dark phlegm. He is concerned that he might have pneumonia. He has a history of COPD. He says he been coughing up dark phlegm since this morning. He is on Coumadin. He has a history of atrial fibrillation and had been on Eliquis. While on Eliquis he developed a pulmonary embolus and was changed to Coumadin. He has a history of COPD. He has not smoked for 60 years. He has a history of coronary artery disease. He says that a few days ago he was told by the doctor managing his Coumadin that he should take an extra dose. He is not having chest pain. He does have dyspnea on exertion PFSH Past Medical History Hx Anticoagulant Therapy: Yes (COUMADIN) Asthma: No Autoimmune Disease: No Anxiety: No Depression: No Heart Rhythm Problems: Yes (afib) Cancer: No Cardiac Catheterization: Yes (2014) Cardiovascular Problems: Yes (A.FIB, CABG X 5-(3 grafts down),MS, A-Fib c ablation, CHF) High Cholesterol: Yes Chest Pain: No Congestive Heart Failure: Yes COPD: Yes Coronary Artery Disease: Yes Diabetes: Yes Patient Takes Glucophage: No Diminished Hearing: No Endocrine: Yes Gastrointestinal Disorders: No GERD: No Glaucoma: No Genitourinary: Yes Hepatitis: No Hiatal Hernia: No Hypertension: Yes Immune Disorder: No Implanted Vascular Access Dvce: Yes Kidney Stones: No Musculoskeletal: No Neurologic: No Psychiatric: No Reproductive: No Respiratory: Yes (copd) Integumentary: No Renal Failure: Yes (STAGE III) Sickle Cell Disease: No Sleep Apnea: No Thyroid Disease: No Ulcer: No Past Surgical History Abdominal Surgery: No Body Medical Devices: stent in right leg Cardiac Surgery: Yes ([address] dinero May 2005) Coronary Artery Bypass Graft: Yes (5 VESSEL) Eye Surgery: Yes (BILAT. CATARACT REMOVAL) Genitourinary Surgery: No Neurologic Surgery: No Thoracic Surgery: Yes (CABG) Other Surgery: Yes Social History Alcohol Use: Yes (occas. beer) Tobacco Use: No (quit 60 years ago) Substance Use: No Allergies-Medications (Allergen,Severity, Reaction): Coded Allergies: No Known Allergies (Verified Allergy, Unknown, 10/22/17) Reported Meds & Prescriptions Reported Meds & Active Scripts Active Amiodarone (Amiodarone HCl) 200 Mg Tab 200 Mg PO DAILY Aspirin EC (Aspirin) 81 Mg Tabdr 81 Mg PO DAILY Coumadin (Warfarin) 5 Mg Tab 5 Mg PO DAILY START ON Wednesday11/02/2016 Reported Vitamin D3 (Cholecalciferol) 2,000 Unit Cap 2,000 Units PO DAILY Vitamin B-12 (Cyanocobalamin) 1,000 Mcg Tab 1,000 Mcg PO DAILY Saw [place] (Serenoa Repens) 450 Mg Cap 450 Mg PO DAILY [prevagen] 1 Tab PO DAILY Multi-Vitamin Daily (Multiple Vitamin) 1 Tab Tab 1 Tab PO DAILY Lantus Inj (Insulin Glargine) 100 Unit/Ml Inj 27 Unit SQ DAILY Levothyroxine (Levothyroxine Sodium) 25 Mcg Tab 25 Mcg PO DAILY Lantus Solostar Pen Inj (Insulin Glargine) 300 Unit/3 Ml Pen 28 Units SQ Glipizide 5 Mg Tab 5 Mg PO DAILY Take 30 minutes before a meal Tanzeum 4-Pack Inj (Albiglutide) 50 Mg Pfpen 50 Mg SQ Q7D Atorvastatin (Atorvastatin Calcium) 80 Mg Tab 80 Mg PO HS Valsartan 320 Mg Tab 320 Mg PO DAILY Calcitriol 0.25 Mcg Cap 0.25 Mcg PO DAILY Isosorbide Mononitrate ER (Isosorbide Mononitrate) 30 Mg Magdi 30 Mg PO DAILY Review of Systems Except as stated in HPI: all other systems reviewed are Neg General / Constitutional: No: Fever, Chills Eyes: No: Diploplia, Blurred Vision HENT: No: Headaches, Vertigo Cardiovascular: No: Chest Pain or Discomfort Respiratory: Positive: Cough, Shortness of Breath, Hemoptysis Gastrointestinal: No: Vomiting, Diarrhea Genitourinary: No: Urgency, Frequency Skin: No Rash Neurologic: No: Weakness, Dizziness Psychiatric: No: Anxiety Endocrine: No: Heat Intolerance, Cold Intolerance Hematologic/Lymphatic: No: Easy Bruising Physical Exam Narrative GENERAL: Well-developed male. He is coughing up sputum with blood mixed in intermittently SKIN: Focused skin assessment warm/dry. HEAD: Atraumatic. Normocephalic. EYES: Pupils equal and round. No scleral icterus. No injection or drainage. ENT: No nasal bleeding or discharge. Mucous membranes pink and moist. NECK: Trachea midline. No JVD. CARDIOVASCULAR: ReguNo accessory mular rate and rhythm. No murmur appreciated. RESPIRATORY: He has diminished breath sounds bilaterally. There is occasional rhonchi GASTROINTESTINAL: Abdomen soft, non-tender, nondistended. Hepatic and splenic margins not palpable. MUSCULOSKELETAL: No obvious deformities. No clubbing. No cyanosis. Trace bilateral edema NEUROLOGICAL: Awake and alert. No obvious cranial nerve deficits. Motor grossly within normal limits. Normal speech. PSYCHIATRIC: Appropriate mood and affect; insight and judgment normal. Data Data Last Documented VS Vital Signs Date Time Temp Pulse Resp B/P (MAP) Pulse Ox O2 Delivery O2 Flow Rate FiO2 10/22/17 12:36 97.5 71 16 136/66 (89) 97 Orders Orders Complete Blood Count With Diff (10/22/17 12:50) Comprehensive Metabolic Panel (10/22/17 12:50) Prothrombin Time / Inr (Pt) (10/22/17 12:50) Act Partial Throm Time (Ptt) (10/22/17 12:50) Blood Culture (10/22/17 12:50) Chest, Pa & Lat (10/22/17 12:50) B-Type Natriuretic Peptide (10/22/17 13:07) Albuterol-Ipratropium Neb (Duoneb Neb) (10/22/17 13:45) Admit Order (Ed Use Only) (10/22/17 14:20) Place In Observation (10/22/17 ) Vital Signs (Adult) Q4H (10/22/17 14:20) Activity Oob With Assistance (10/22/17 14:20) Diet Heart Healthy (10/22/17 Dinner) Sodium Chloride 0.9% Flush (Ns Flush) (10/22/17 14:30) Sodium Chloride 0.9% Flush (Ns Flush) (10/22/17 21:00) Acetaminophen (Tylenol) (10/22/17 14:30) Temazepam (Restoril) (10/22/17 14:30) Basic Metabolic Panel (Bmp) (10/23/17 06:00) Complete Blood Count With Diff (10/23/17 06:00) Electrocardiogram (10/22/17 14:20) Electrocardiogram (10/22/17 20:20) Resp Oxygen Jeovany C Titrat 1-4 L (10/22/17 ) Pt Request For Service (10/22/17 14:20) Case Management Consult (10/22/17 14:20) Scd Bilateral/Knee High SAI.BID (10/22/17 14:20) Alejandro Bilateral/Knee High SAI.QSHIFT (10/22/17 14:20) Naloxone Inj (Narcan Inj) (10/22/17 14:30) Docusate Sodium-Senna (Awilda-Colace) (10/22/17 21:00) Magnesium Hydroxide Liq (Milk Of Magnesi (10/22/17 14:30) Sennosides (Senokot) (10/22/17 14:30) Bisacodyl Supp (Dulcolax Supp) (10/22/17 14:30) Lactulose Liq (Lactulose Liq) (10/22/17 14:30) Warfarin Consult Pharmacy (Coumadin Cons (10/22/17 14:30) Prothrombin Time / Inr (Pt) (10/23/17 06:00) Prothrombin Time / Inr (Pt) (10/24/17 06:00) Prothrombin Time / Inr (Pt) (10/25/17 06:00) Prothrombin Time / Inr (Pt) (10/26/17 06:00) Prothrombin Time / Inr (Pt) (10/27/17 06:00) Labs Laboratory Tests Test 10/22/17 13:00 White Blood Count 7.1 TH/MM3 Red Blood Count 3.72 MIL/MM3 Hemoglobin 10.4 GM/DL Hematocrit 32.9 % Mean Corpuscular Volume 88.4 FL Mean Corpuscular Hemoglobin 27.9 PG Mean Corpuscular Hemoglobin Concent 31.5 % Red Cell Distribution Width 15.6 % Platelet Count 220 TH/MM3 Mean Platelet Volume 8.4 FL Neutrophils (%) (Auto) 81.1 % Lymphocytes (%) (Auto) 10.7 % Monocytes (%) (Auto) 6.5 % Eosinophils (%) (Auto) 1.1 % Basophils (%) (Auto) 0.6 % Neutrophils # (Auto) 5.7 TH/MM3 Lymphocytes # (Auto) 0.8 TH/MM3 Monocytes # (Auto) 0.5 TH/MM3 Eosinophils # (Auto) 0.1 TH/MM3 Basophils # (Auto) 0.0 TH/MM3 CBC Comment DIFF FINAL Differential Comment Prothrombin Time 44.7 SEC Prothromb Time International Ratio 4.5 RATIO Activated Partial Thromboplast Time 40.8 SEC Blood Urea Nitrogen 30 MG/DL Creatinine 1.60 MG/DL Random Glucose 281 MG/DL Total Protein 7.0 GM/DL Albumin 3.0 GM/DL Calcium Level 8.3 MG/DL Alkaline Phosphatase 159 U/L Aspartate Amino Transf (AST/SGOT) 53 U/L Alanine Aminotransferase (ALT/SGPT) 61 U/L Total Bilirubin 0.7 MG/DL Sodium Level 137 MEQ/L Potassium Level 4.2 MEQ/L Chloride Level 105 MEQ/L Carbon Dioxide Level 23.6 MEQ/L Anion Gap 8 MEQ/L Estimat Glomerular Filtration Rate 41 ML/MIN B-Type Natriuretic Peptide 340 PG/ML MDM Medical Decision Making Medical Screen Exam Complete: Yes Emergency Medical Condition: Yes Medical Record Reviewed: Yes Differential Diagnosis Differential includes pneumonia, pulmonary embolus, coagulopathy Narrative Course Chest x-ray shows bilateral pleural effusions. The right effusion seems slightly larger than it has in previous x-rays. There is streaky opacities at the right base which may represent early pneumonia. His BNP is 340. His INR is 4.5. Hemoglobin is 10.4 with a white count of 7.1. I suspect is hemoptysis is secondary to the elevated INR. I'm reluctant to reverse him as he does have significant cause for anticoagulation Diagnosis Primary Impression: Hemoptysis Additional Impression: Coagulopathy Admitting Information Admitting Physician Requests: Observation Leon Condon MD Oct 22, 2017 13:02
[2017-10-22 13:11] LABS: AUTOMATED NEUTROPHIL # 5.7 TH/MM3 (1.8-7.7); BASOPHIL % 0.6 % (0.0-2.0); EOSINOPHIL # 0.1 TH/MM3 (0-0.4); EOSINOPHIL % 1.1 % (0.0-4.0); HEMATOCRIT 32.9 % (39.0-51.0); HEMOGLOBIN 10.4 GM/DL (13.0-17.0); LYMPH % 10.7 % (9.0-44.0); LYMPHOCYTE # 0.8 TH/MM3 (1.0-4.8); MEAN CELL VOLUME 88.4 FL (80.0-100.0); MEAN CORPUSCULAR HEMOGLOBIN 27.9 PG (27.0-34.0); MEAN CORPUSCULAR HGB CONC 31.5 % (32.0-36.0); MEAN PLATELET VOLUME 8.4 FL (7.0-11.0); MONO % 6.5 % (0.0-8.0); MONOCYTE # 0.5 TH/MM3 (0-0.9); NEUT % 81.1 % (16.0-70.0); PLATELET COUNT 220 TH/MM3 (150-450); RED BLOOD COUNT 3.72 MIL/MM3 (4.50-5.90); RED CELL DISTRIBUTION WIDTH 15.6 % (11.6-17.2); WHITE BLOOD COUNT 7.1 TH/MM3 (4.0-11.0)
[2017-10-22 13:21] LABS: CHLORIDE 105 MEQ/L (98-107); SODIUM (NA) 137 MEQ/L (136-145)
[2017-10-22 13:24] LABS: CALCIUM 8.3 MG/DL (8.5-10.1)
[2017-10-22 13:25] LABS: BICARBONATE 23.6 MEQ/L (21.0-32.0); BLOOD UREA NITROGEN 30 MG/DL (7-18); GLUCOSE,RANDOM 281 MG/DL (74-106); INTERNATIONAL NORMALIZED RATIO 4.5 RATIO; PROTHROMBIN TIME - PATIENT 44.7 SEC (9.8-11.6)
[2017-10-22 13:28] LABS: ALT (GPT) 61 U/L (12-78); AST (GOT) 53 U/L (15-37); GLOMERULAR FILTRATION RATE 41 ML/MIN (>89)
[2017-10-22 13:29] LABS: TOTAL BILIRUBIN ADULT 0.7 MG/DL (0.2-1.0)
[2017-10-22 13:31] LABS: ALKALINE PHOSPHATASE 159 U/L (45-117)
--- NOTE | 2017-10-22 13:31 | RADRPT ---
EXAM DATE/TIME: 10/22/2017 13:08 [facility] COMPARISON: CHEST PA & LAT, November 11, 2016, 17:19. INDICATIONS : Coughing up blood MEDICAL HISTORY : Chronic obstructive pulmonary disease. Hypertension. Peripheral vascular disease SURGICAL HISTORY : CABG Coronary artery stent. Cataract surgery. ENCOUNTER: Initial ACUITY: 2 days PAIN SCORE: 0/10 LOCATION: Bilateral chest FINDINGS: PA and lateral views of the chest were obtained and demonstrate the patient status post median sterno lino for bypass grafting procedure. There are bilateral pleural effusions again noted left greater th an right. The left effusion is stable. The right appears mildly increased. The heart size is mildly p rominent. There are mild streaky bibasilar opacities present which appear mildly increased on the rig ht. The bony thorax is otherwise unremarkable. CONCLUSION: 1. Bilateral pleural effusions left greater than right. The right effusion appears mildly more promin ent. The left is stable. 2. Streaky opacity the lung bases which appears increased on the right. This could represent early pn eumonia. Ady Duffy MD on October 22, 2017 at 13:29 Board Certified Radiologist. This report was verified electronically.
[2017-10-22] MEDS ORDERED: RESP: ALBUTEROL 2.5 MG/IPRATROPIUM 0.5 MG NEB (SCH) NEB ONE (13:45)
[2017-10-22] MEDS ORDERED: MAGNESIUM HYDROXIDE SUSP 30 ML CUP PO PRN (14:30)
[2017-10-22] MEDS ORDERED: ALBIGLUTIDE 50 MG SQ SCH (14:30)
[2017-10-22] MEDS ORDERED: NALOXONE HCL 0.4 MG/ML AMP IV PUSH PRN (14:30)
[2017-10-22] MEDS ORDERED: BISACODYL 10 MG SUPP RECTAL PRN (14:30)
[2017-10-22] MEDS ORDERED: LACTULOSE SYRUP 20 GM/30 ML CUP PO PRN (14:30)
[2017-10-22] MEDS ORDERED: GLUCAGON 1 MG/ML VIAL OTHER PRN (14:30)
[2017-10-22] MEDS ORDERED: SODIUM CHLORIDE 0.9% FLUSH 10 ML FLUSH IV FLUSH PRN (14:30)
[2017-10-22] MEDS ORDERED: DEXTROSE 50% IN WATER 50 ML VIAL(D50) IV PUSH PRN (14:30)
[2017-10-22 15:14] VITALS: BP 139/68; PULSE 68; RESP 18; O2SAT 98
[2017-10-22 15:52] VITALS: O2SAT 92
[2017-10-22 16:00] VITALS: BP 151/78; PULSE 68; RESP 14; TEMP 98; O2SAT 96
[2017-10-22] MEDS ORDERED: ACETAMINOPHEN 325 MG TAB PO PRN (16:00)
--- NOTE | 2017-10-22 16:59 | HHI.HP ---
[facility] Angelito Tapia MD Admission Diagnosis HEMOPTYSIS, COAGULOPATHY Diagnoses: (1) Supratherapeutic INR Diagnosis: Principal (2) Hemoptysis Diagnosis: Secondary Chief Complaint: Hemoptysis Travel History International Travel<30 Days: No Contact w/Intl Traveler <30 Da: No Traveled to Known Affected Are: No History of Present Illness Written by Chayo Armendariz, acting as scribe for Dr. Adames on 10/22/17 at 16:39. Mr. Leone is an 87-year-old male patient with a known medical history of atrial fibrillation on Coumadin and COPD who presented with hemoptysis and dyspnea on exertion x 2 days. Patient states he takes Coumadin for atrial fibrillation and presented with an INR of 4.5. He does comment that his PCP recommended an extra dose of Coumadin a few days ago due to a subtherapeutic INR. Patient does admit to some dyspnea on exertion although he does suffer from COPD. Denies any recent fever, chills, headache, abdominal pain, nausea, vomiting, diarrhea or dysuria. Review of Systems Constitutional: DENIES: Fever, Chills Eyes: DENIES: Diplopia, Double Vision Respiratory: COMPLAINS OF: Cough, Hemoptysis, Sputum production, Shortness of breath Cardiovascular: COMPLAINS OF: Lower Extremity Edema, DENIES: Chest pain, Palpitations Gastrointestinal: DENIES: Abdominal pain, Bloody stools, Diarrhea, Nausea, Vomiting Past Family Social History Past Medical History COPD Atrial fibrillation on Coumadin CAD with history of IN and CABG Type 2 diabetes mellitus Hyperlipidemia Past Surgical History CABG Right leg angiogram with stent x 2 Reported Medications Active Amiodarone (Amiodarone HCl) 200 Mg Tab 200 Mg PO DAILY Aspirin EC (Aspirin) 81 Mg Tabdr 81 Mg PO DAILY Coumadin (Warfarin) 5 Mg Tab 5 Mg PO DAILY START ON Wednesday11/02/2016 Reported Vitamin D3 (Cholecalciferol) 2,000 Unit Cap 2,000 Units PO DAILY Vitamin B-12 (Cyanocobalamin) 1,000 Mcg Tab 1,000 Mcg PO DAILY Saw [place] (Serenoa Repens) 450 Mg Cap 450 Mg PO DAILY [prevagen] 1 Tab PO DAILY Multi-Vitamin Daily (Multiple Vitamin) 1 Tab Tab 1 Tab PO DAILY Lantus Inj (Insulin Glargine) 100 Unit/Ml Inj 27 Unit SQ DAILY Levothyroxine (Levothyroxine Sodium) 25 Mcg Tab 25 Mcg PO DAILY Lantus Solostar Pen Inj (Insulin Glargine) 300 Unit/3 Ml Pen 28 Units SQ Glipizide 5 Mg Tab 5 Mg PO DAILY Take 30 minutes before a meal Tanzeum 4-Pack Inj (Albiglutide) 50 Mg Pfpen 50 Mg SQ Q7D Atorvastatin (Atorvastatin Calcium) 80 Mg Tab 80 Mg PO HS Valsartan 320 Mg Tab 320 Mg PO DAILY Calcitriol 0.25 Mcg Cap 0.25 Mcg PO DAILY Isosorbide Mononitrate ER (Isosorbide Mononitrate) 30 Mg Magdi 30 Mg PO DAILY Allergies: Coded Allergies: No Known Allergies (Verified Allergy, Unknown, 10/22/17) Active Ordered Medications Current Medications Medications (Trade) Dose Ordered Sig/Bryan Route Start Time Stop Time Status Last Admin (NS Flush) 2 ml UNSCH PRN IV FLUSH 10/22/17 14:30 (NS Flush) 2 ml BID IV FLUSH 10/22/17 21:00 (Tylenol) 650 mg Q4HR PRN PO 10/22/17 16:00 (Restoril) 15 mg HS PRN PO 10/22/17 21:00 (Narcan Inj) 0.4 mg UNSCH PRN IV PUSH 10/22/17 14:30 (Awilda-Colace) 1 tab BID PO 10/22/17 21:00 (Milk Of Magnesia Liq) 30 ml Q12HR PRN PO 10/22/17 14:30 (Senokot) 17.2 mg Q12HR PRN PO 10/22/17 21:00 (Dulcolax Supp) 10 mg DAILY PRN RECTAL 10/22/17 14:30 (Lactulose Liq) 30 ml DAILY PRN PO 10/22/17 14:30 Pharmacy Profile Note 0 ml @ 0 mls/hr UNSCH OTHER 10/22/17 14:30 (Cordarone) 200 mg DAILY PO 10/23/17 09:00 (Lipitor) 80 mg HS PO 10/22/17 21:00 (Rocaltrol) 0.25 mcg DAILY PO 10/23/17 09:00 (Vitamin D3) 2,000 units DAILY PO 10/23/17 09:00 (Vitamin B12) 1,000 mcg DAILY PO 10/23/17 09:00 (Imdur) 30 mg DAILY PO 10/23/17 09:00 (Synthroid) 25 mcg DAILY@0600 PO 10/23/17 06:00 (Diovan) 320 mg DAILY PO 10/23/17 09:00 Non-Formulary Medication 50 mg Q7D SQ 10/22/17 14:30 Future Hold (D50w (Vial) Inj) 50 ml UNSCH PRN IV PUSH 10/22/17 14:30 (Glucagon Inj) 1 mg UNSCH PRN OTHER 10/22/17 14:30 (NovoLOG SUPPLEMENTAL SCALE) 1 ACHS SLIDING SCALE SQ 10/22/17 17:00 Family History Maternal medical history significant for diabetes mellitus. Paternal medical history significant for IN. Social History Does admit to previous tobacco use, quit many years ago. Admits to occasional alcohol use. Denies any illicit drug use. Physical Exam Vital Signs Vital Signs Date Time Temp Pulse Resp B/P (MAP) Pulse Ox O2 Delivery O2 Flow Rate FiO2 10/22/17 15:56 10/22/17 15:52 92 21 10/22/17 15:14 68 18 139/68 (91) 98 Room Air 10/22/17 12:36 97.5 71 16 136/66 (89) 97 Physical Exam GENERAL: This is a well-nourished, well-developed male patient, in no apparent distress. SKIN: No rashes, ecchymoses or lesions. Warm and dry. HEAD: Atraumatic. Normocephalic. EYES: Pupils equal round and reactive. Extraocular motions intact. No scleral icterus. No injection or drainage. ENT: Nose without bleeding, purulent drainage or septal hematoma. Throat without erythema, tonsillar hypertrophy or exudate. Uvula midline. Airway patent. NECK: Trachea midline. No JVD. Supple. CARDIOVASCULAR: Regular rate and rhythm without murmurs, gallops, or rubs. RESPIRATORY: Clear to auscultation. Breath sounds equal bilaterally. No wheezes , rales, or rhonchi. GASTROINTESTINAL: Abdomen soft, non-tender, nondistended. No guarding. MUSCULOSKELETAL: Extremities without clubbing, cyanosis, or edema. No joint tenderness, effusion, or edema noted. NEUROLOGICAL: Awake and alert. Cranial nerves II through XII intact. Motor and sensory grossly within normal limits. Five out of 5 muscle strength in all muscle groups. Normal speech. Laboratory Laboratory Tests Test 10/22/17 13:00 White Blood Count 7.1 Red Blood Count 3.72 Hemoglobin 10.4 Hematocrit 32.9 Mean Corpuscular Volume 88.4 Mean Corpuscular Hemoglobin 27.9 Mean Corpuscular Hemoglobin Concent 31.5 Red Cell Distribution Width 15.6 Platelet Count 220 Mean Platelet Volume 8.4 Neutrophils (%) (Auto) 81.1 Lymphocytes (%) (Auto) 10.7 Monocytes (%) (Auto) 6.5 Eosinophils (%) (Auto) 1.1 Basophils (%) (Auto) 0.6 Neutrophils # (Auto) 5.7 Lymphocytes # (Auto) 0.8 Monocytes # (Auto) 0.5 Eosinophils # (Auto) 0.1 Basophils # (Auto) 0.0 CBC Comment DIFF FINAL Differential Comment Prothrombin Time 44.7 Prothromb Time International Ratio 4.5 Activated Partial Thromboplast Time 40.8 Blood Urea Nitrogen 30 Creatinine 1.60 Random Glucose 281 Total Protein 7.0 Albumin 3.0 Calcium Level 8.3 Alkaline Phosphatase 159 Aspartate Amino Transf (AST/SGOT) 53 Alanine Aminotransferase (ALT/SGPT) 61 Total Bilirubin 0.7 Sodium Level 137 Potassium Level 4.2 Chloride Level 105 Carbon Dioxide Level 23.6 Anion Gap 8 Estimat Glomerular Filtration Rate 41 B-Type Natriuretic Peptide 340 Date/Time Source Procedure Growth Status 10/22/17 13:05 Blood Peripheral Aerobic Blood Culture Pending Received 10/22/17 13:05 Blood Peripheral Anaerobic Blood Culture Pending Received Result Diagram: 10/22/17 1300 10/22/17 1300 Imaging Last Impressions Chest X-Ray 10/22/17 1250 Signed Impressions: Service Date/Time: Sunday, October 22, 2017 13:08 - CONCLUSION: 1. Bilateral pleural effusions left greater than right. The right effusion appears mildly more prominent. The left is stable. 2. Streaky opacity the lung bases which appears increased on the right. This could represent early pneumonia. Ady Duffy MD Septic Shock Reassessment Septic shock perfusion: reassessment completed Caprini VTE Risk Assessment Caprini VTE Risk Assessment: Mod/High Risk (score >= 2) Caprini Risk Assessment Model Point Value = 1 Point Value = 2 Point Value = 3 Point Value = 5 Age 41-60 Minor surgery BMI > 25 kg/m2 Swollen legs Varicose veins or History of unexplained or recurrent spontaneous Oral contraceptives or hormone replacement Sepsis (< 1 month) Serious lung disease, including pneumonia (< 1 month) Abnormal pulmonary function Acute myocardial infarction Congestive heart failure (< 1 month) History of inflammatory bowel disease Medical patient at bed rest Age 61-74 Arthroscopic surgery Major open surgery (> 45 min) Laparoscopic surgery (> 45 min) Malignancy Confined to bed (> 72 hours) Immobilizing plaster cast Central venous access Age >= 75 History of VTE Family history of VTE Factor V Leiden Prothrombin [id number] Lupus anticoagulant Anticardiolipin antibodies Elevated serum homocysteine Heparin-induced thrombocytopenia Other congenital or acquired thrombophilia Stroke (< 1 month) Elective arthroplasty Hip, pelvis, or leg fracture Acute spinal cord injury (< 1 month) Prophylaxis Regimen Total Risk Factor Score Risk Level Prophylaxis Regimen 0-1 Low Early ambulation 2 Moderate Order ONE of the following: *Sequential Compression Device (SCD) *Heparin 5000 units SQ BID 3-4 Higher Order ONE of the following medications: *Heparin 5000 units SQ TID *Enoxaparin/Lovenox 40 mg SQ daily (WT < 150 kg, CrCl > 30 mL/min) *Enoxaparin/Lovenox 30 mg SQ daily (WT < 150 kg, CrCl > 10-29 mL/min) *Enoxaparin/Lovenox 30 mg SQ BID (WT < 150 kg, CrCl > 30 mL/min) AND/OR *Sequential Compression Device (SCD) 5 or more Highest Order ONE of the following medications: *Heparin 5000 units SQ TID (Preferred with Epidurals) *Enoxaparin/Lovenox 40 mg SQ daily (WT < 150 kg, CrCl > 30 mL/min) *Enoxaparin/Lovenox 30 mg SQ daily (WT < 150 kg, CrCl > 10-29 mL/min) *Enoxaparin/Lovenox 30 mg SQ BID (WT < 150 kg, CrCl > 30 mL/min) AND *Sequential Compression Device (SCD) Assessment and Plan Problem List: (1) Supratherapeutic INR ICD Code: R79.1 - Abnormal coagulation profile (2) Hemoptysis ICD Code: R04.2 - Hemoptysis (3) Diabetes mellitus ICD Code: E11.9 - Type 2 diabetes mellitus without complications Status: Chronic (4) Hyperlipidemia ICD Code: E78.5 - Hyperlipidemia, unspecified Status: Acute (5) Hypertension ICD Code: I10 - Essential (primary) hypertension Status: Chronic Assessment and Plan Mr. Leone is an 87-year-old male patient with a known medical history of atrial fibrillation on Coumadin and COPD who presented with hemoptysis and dyspnea on exertion x 2 days. Hemoptysis suspect secondary to Supratherapeutic INR Atrial fibrillation, chronic on Coumadin Normocytic normochromic anemia suspect secondary to above. INR on presentation 4.5. Will recheck in am. Follow H&H. Hold Coumadin dose today. Supportive care. Acute kidney injury: Creatinine 1.6 on presentation. No history of CKD reported. Will hydrate. Could be chronic, patient unaware. Bilateral pleural effusions, left greater than right Possible early community acquired pneumonia Patient with complaints of dyspnea on exertion may be secondary to above. CXR reviewed showing bilateral pleural effusions, left greater than right. Also streaky opacity in the lung bases, could represent early pneumonia. WBC WNL. Afebrile. Will place on Rocephin and Azithromycin prophylactically. Will follow clinically. Supportive care. Supplemental O2 as needed. COPD not in exacerbation: Supportive care. Stable. Hypertension, chronic: Controlled. Continue home medications. Monitor BP trends. Type 2 Diabetes Mellitus, chronic: ACCU checks ACHS, sliding scale insulin, cover as needed. DVT Prophylaxis: SCDs. Hold Coumadin, supratherapeutic INR and hemoptysis. This note was transcribed by NELA Diaz . I, Dr. Maryann Adames personally performed the history, physical exam, and medical decision making; and confirmed the accuracy of the information in the transcribed note. Authenticated by Dr. Maryann Adames on 10/22/17 at 16:39. Chayo Armendariz Oct 22, 2017 16:59 Maryann Adames MD Oct 22, 2017 20:03
[2017-10-22] MEDS ORDERED: cefTRIAXone INJ 1,000 MG in SODIUM CHLORIDE 0.9% INJ 100 ML IV SCH (17:30)
[2017-10-22] MEDS: INSULIN ASPART SUPPLEMENTAL SCALE SQ SCH ×2 (17:52→21:00)
[2017-10-22] MEDS ORDERED: AZITHROMYCIN INJ 500 MG in SODIUM CHLOR 0.9% 250 ML INJ 250 ML IV SCH (18:00)
[2017-10-22 20:00] VITALS: PULSE 71
[2017-10-22] MEDS ORDERED: SENNOSIDES 8.6 MG TAB PO PRN (21:00)
[2017-10-22] MEDS ORDERED: TEMAZEPAM 15 MG CAP PO PRN (21:00)
[2017-10-22] MEDS: DOCUSATE SODIUM 50 MG/SENNA 8.6 MG TAB PO SCH (21:00)
[2017-10-22] MEDS ORDERED: ATORVASTATIN 80 MG TAB PO SCH (21:00)
[2017-10-22] MEDS: SODIUM CHLORIDE 0.9% FLUSH 10 ML FLUSH IV FLUSH SCH (21:32)
[2017-10-22 21:34] VITALS: BP 159/70; PULSE 69; RESP 18; TEMP 98.1; O2SAT 97
[2017-10-22] MEDS ORDERED: ATORVASTATIN 40 MG TAB PO SCH (21:45)
[2017-10-23 00:17] VITALS: BP 106/52; PULSE 63; RESP 20; TEMP 98.3; O2SAT 98
[2017-10-23 05:07] VITALS: BP 115/79; PULSE 69; RESP 16; TEMP 98.9; O2SAT 99
[2017-10-23] MEDS ORDERED: LEVOTHYROXINE SODIUM 25 MCG TAB PO SCH (06:00)
[2017-10-23 08:00] VITALS: BP 192/87; PULSE 75; RESP 18; TEMP 97.8; O2SAT 93
[2017-10-23 08:03] VITALS: PULSE 71
[2017-10-23] MEDS: SODIUM CHLORIDE 0.9% FLUSH 10 ML FLUSH IV FLUSH SCH (08:34)
[2017-10-23] MEDS: INSULIN ASPART SUPPLEMENTAL SCALE SQ SCH ×2 (08:34→12:38)
[2017-10-23] MEDS: DOCUSATE SODIUM 50 MG/SENNA 8.6 MG TAB PO SCH (08:35)
[2017-10-23 08:42] LABS: AUTOMATED NEUTROPHIL # 4.8 TH/MM3 (1.8-7.7); BASOPHIL % 0.4 % (0.0-2.0); EOSINOPHIL # 0.1 TH/MM3 (0-0.4); EOSINOPHIL % 1.1 % (0.0-4.0); HEMATOCRIT 33.2 % (39.0-51.0); HEMOGLOBIN 10.7 GM/DL (13.0-17.0); LYMPH % 13.7 % (9.0-44.0); LYMPHOCYTE # 0.8 TH/MM3 (1.0-4.8); MEAN CORPUSCULAR HEMOGLOBIN 28.3 PG (27.0-34.0); MEAN CORPUSCULAR HGB CONC 32.2 % (32.0-36.0); MEAN PLATELET VOLUME 8.5 FL (7.0-11.0); MONO % 8.4 % (0.0-8.0); MONOCYTE # 0.5 TH/MM3 (0-0.9); NEUT % 76.4 % (16.0-70.0); PLATELET COUNT 229 TH/MM3 (150-450); RED BLOOD COUNT 3.77 MIL/MM3 (4.50-5.90); RED CELL DISTRIBUTION WIDTH 16.2 % (11.6-17.2); WHITE BLOOD COUNT 6.2 TH/MM3 (4.0-11.0)
--- NOTE | 2017-10-23 08:48 | HHI.PR ---
Subjective Remarks Hemoptysis resolved, denies any chest pain or shortness of breath, no fever or chills no cough. Feels good and he wants to go home No overt bleeding Objective Vitals Vital Signs Date Time Temp Pulse Resp B/P (MAP) Pulse Ox O2 Delivery O2 Flow Rate FiO2 10/23/17 05:07 98.9 69 16 115/79 (91) 99 10/23/17 00:17 98.3 63 20 106/52 (70) 98 10/22/17 21:34 98.1 69 18 159/70 (99) 97 10/22/17 20:40 21 10/22/17 20:00 71 10/22/17 16:00 98.0 68 14 151/78 (102) 96 10/22/17 15:56 10/22/17 15:52 92 21 10/22/17 15:14 68 18 139/68 (91) 98 Room Air 10/22/17 12:36 97.5 71 16 136/66 (89) 97 I/O 10/22/17 10/22/17 10/22/17 10/23/17 10/23/17 10/23/17 06:59 14:59 22:59 06:59 14:59 22:59 Intake Total 572 ml Output Total 350 ml Balance 222 ml Intake Oral 222 ml IV Total 350 ml Output Urine Total 350 ml # Voids 2 2 # Bowel Movements 1 1 Result Diagram: 10/23/17 0738 10/22/17 1300 Imaging Last Impressions Chest X-Ray 10/22/17 1250 Signed Impressions: Service Date/Time: Sunday, October 22, 2017 13:08 - CONCLUSION: 1. Bilateral pleural effusions left greater than right. The right effusion appears mildly more prominent. The left is stable. 2. Streaky opacity the lung bases which appears increased on the right. This could represent early pneumonia. Ady Duffy MD Objective Remarks GENERAL: This is a well-nourished, well-developed male patient, in no apparent distress. CARDIOVASCULAR: Regular rate and rhythm without murmurs, gallops, or rubs. RESPIRATORY: Clear to auscultation. Breath sounds equal bilaterally. No wheezes , rales, or rhonchi. GASTROINTESTINAL: Abdomen soft, non-tender, nondistended. No guarding. MUSCULOSKELETAL: Extremities without clubbing, cyanosis, or edema. No joint tenderness, effusion, or edema noted. NEUROLOGICAL: Awake and alert. Cranial nerves II through XII intact. Motor and sensory grossly within normal limits. Five out of 5 muscle strength in all muscle groups. Normal speech. A/P Problem List: (1) Supratherapeutic INR ICD Code: R79.1 - Abnormal coagulation profile (2) Hemoptysis ICD Code: R04.2 - Hemoptysis (3) Diabetes mellitus ICD Code: E11.9 - Type 2 diabetes mellitus without complications Status: Chronic (4) Hyperlipidemia ICD Code: E78.5 - Hyperlipidemia, unspecified Status: Acute (5) Hypertension ICD Code: I10 - Essential (primary) hypertension Status: Chronic Assessment and Plan Mr. Leone is an 87-year-old male patient with a known medical history of atrial fibrillation on Coumadin and COPD who presented with hemoptysis and dyspnea on exertion x 2 days. Hemoptysis suspect secondary to Supratherapeutic INR. Hemoptysis resolved. Atrial fibrillation, chronic on Coumadin Normocytic normochromic anemia suspect secondary to above. INR on presentation 4.5. Repeat INR is 3.9. No overt bleeding. Follow H& H. Hold Coumadin dose today. Supportive care. Acute kidney injury: Creatinine 1.6 on presentation. No history of CKD reported. Will hydrate. Could be chronic, patient unaware. Bilateral pleural effusions, left greater than right Possible early community acquired pneumonia Patient with complaints of dyspnea on exertion may be secondary to above. CXR reviewed showing bilateral pleural effusions, left greater than right. Also streaky opacity in the lung bases, could represent early pneumonia. WBC WNL. Afebrile. Will place on Rocephin and Azithromycin prophylactically. Will follow clinically. Supportive care. Supplemental O2 as needed. COPD not in exacerbation: Supportive care. Stable. Hypertension, chronic: Controlled. Continue home medications. Monitor BP trends. Type 2 Diabetes Mellitus, chronic: ACCU checks ACHS, sliding scale insulin, cover as needed. DVT Prophylaxis: SCDs. Hold Coumadin, supratherapeutic INR and hemoptysis. Discharge Planning DC home in stable condition to follow up as OP with PCP and consultants. Diet: Healthy heart diet and Diabetic diet Activity ad freeman as tolerated Meds per med reconciliations Maryann Adames MD Oct 23, 2017 08:48
[2017-10-23 09:00] LABS: BICARBONATE 26.1 MEQ/L (21.0-32.0); CALCIUM 8.3 MG/DL (8.5-10.1)
[2017-10-23] MEDS ORDERED: CHOLECALCIFEROL (VIT D3) 1000 UNIT TAB PO SCH (09:00)
[2017-10-23] MEDS ORDERED: AMIODARONE 200 MG TAB PO SCH (09:00)
[2017-10-23] MEDS ORDERED: VALSARTAN 80 MG TAB PO SCH (09:00)
[2017-10-23] MEDS ORDERED: VALSARTAN 160 MG TAB PO SCH (09:00)
[2017-10-23] MEDS ORDERED: CALCITRIOL 0.25 MCG CAP PO SCH (09:00)
[2017-10-23] MEDS ORDERED: ISOSORBIDE MONONITRATE 30 MG TAB PO SCH (09:00)
[2017-10-23] MEDS ORDERED: CYANOCOBALAMIN 1,000 MCG TAB PO SCH (09:00)
[2017-10-23 09:14] LABS: CREATININE 1.5 MG/DL (0.60-1.30)
[2017-10-23 09:26] LABS: INTERNATIONAL NORMALIZED RATIO 3.9 RATIO; PROTHROMBIN TIME - PATIENT 39.3 SEC (9.8-11.6)
[2017-10-23 12:00] VITALS: BP 166/70; PULSE 74; RESP 18; TEMP 97.9; O2SAT 98
--- NOTE | 2017-10-23 13:48 | HHI.DCPOC ---
Discharge Care Plan Goals to Promote Your Health * To prevent worsening of your condition and complications * To maintain your health at the optimal level Directions to Meet Your Goals Take your medications as prescribed Follow your dietary instruction Follow activity as directed Keep your appointments as scheduled Take your immunizations and boosters as scheduled If your symptoms worsen call your PCP, if no PCP go to Urgent Care Center or Emergency Room Smoking is Dangerous to Your Health. Avoid second hand smoke Call the 24-hour hour crisis hotline for domestic abuse at Maryann Adames MD Oct 23, 2017 13:48
--- NOTE | 2017-10-24 14:20 | EKG ---
Date Performed: 10/22/2017 Time Performed: 20:38:23 PTAGE: 87 years EKG: The underlying atrial rhythm is difficult to discern Suspect junctional rhythm but very sli ght nonspecific ST change, similar to the prior tracing ABNORMAL ECG PREVIOUS TRACING : 10/22/2017 14.32 DOCTOR: Shubham Clayton Interpretating Date/Time 10/24/2017 14:19:18
--- NOTE | 2017-10-24 14:22 | EKG ---
Date Performed: 10/22/2017 Time Performed: 14:32:41 PTAGE: 87 years EKG: The underlying atrial rhythm is difficult to discern, quite possible could be junctional Ve ry slight nonspecific T wave flattening Compared to prior tracing no significant change ABNORMAL ECG PREVIOUS TRACING : 09/30/2017 08.44 DOCTOR: Shubham Clayton Interpretating Date/Time 10/24/2017 14:20:47
== END 2017-10-23 15:34 | disposition home or self-care (01) ==
LOC: PHED 12:27 → PHEDA 14:22 → PH3B 15:51
PROVIDERS: ADMIT Hospitalist; ATTEND Hospitalist
DX: R79.1 Abnormal coagulation profile (principal); R04.2 Hemoptysis; E11.9 Type 2 diabetes mellitus without complications; E78.5 Hyperlipidemia, unspecified; I11.0 Hypertensive heart disease with heart failure; I50.9 Heart failure, unspecified; J44.9 Chronic obstructive pulmonary disease, unspecified; I48.2 Chronic atrial fibrillation; Z79.01 Long term (current) use of anticoagulants; D64.9 Anemia, unspecified; N17.9 Acute kidney failure, unspecified; I26.99 Other pulmonary embolism without acute cor pulmonale; I25.10 Atherosclerotic heart disease of native coronary artery without angina pectoris; Z95.1 Presence of aortocoronary bypass graft; E78.00 Pure hypercholesterolemia, unspecified; Z79.899 Other long term (current) drug therapy; Z79.4 Long term (current) use of insulin; Z87.891 Personal history of nicotine dependence
CPT/HCPCS: 71020; 80048; 80053; 82948; 83880; 85025; 85610; 85730; 87040; 87070; 87205; 93005; 94664; 96365; 96366; 96372; 97162; 99285; G0378; G8987; G8988; J0456; J0696; J1815; J7050

== ENCOUNTER → 2018-01-11 | Outpatient (CLI) | payer OTHER ==
[~2018-01-11] MED LIST changes: +BUME1TAB PO; +FURO1TAB62 PO; +GLIP10TA6 PO; +POTA10TA2 PO; +SPIRCAP INH; +SYMB160A INH; +VICT18IN SQ
--- NOTE | 2018-01-17 11:19 | RSPPFT ---
DATE OF PROCEDURE: 01/11/18 COMMENTS: VOLUMES DYNAMIC: FVC moderately reduced; FEV1 severely reduced. STATIC: TLC and FRC mildly reduced; RV normal. FLOWS: FEV1% moderately reduced; FEF 25-75 severely reduced. DIFFUSION: Severely reduced. FLOW VOLUME LOOP: Pattern of variable intrathoracic airways obstruction. IMPRESSION: Moderately severe to severe obstructive ventilatory defect with co-existent mild restriction and a severe reduction in diffusion. No improvement post-bronchodilator.
== END ==
LOC: PHRSP 08:30
PROVIDERS: ATTEND Internal Medicine
DX: J44.9 Chronic obstructive pulmonary disease, unspecified (principal)
CPT/HCPCS: 94060; 94726; 94729

== ENCOUNTER 2018-01-18 18:34 | Observation (INO) | payer OTHER ==
[~2018-01-18] VITALS: Ht 170.2 cm; Wt 74.0 kg
[2018-01-18] VITALS (7 sets, daily range): BP systolic 126–213; BP diastolic 60–101; PULSE 77–80; RESP 18–32; TEMP 96.8; O2SAT 92–97
[~2018-01-18 18:34] MED LIST changes: -BUME1TAB PO; -FURO1TAB62 PO; -GLIP10TA6 PO; -POTA10TA2 PO; -SPIRCAP INH; -SYMB160A INH; -VICT18IN SQ
[2018-01-18] MEDS ORDERED: FUROSEMIDE 40 MG/4 ML VIAL IVP ONE (19:00)
[2018-01-18] MEDS ORDERED: SODIUM CHLORIDE 0.9% FLUSH 10 ML FLUSH IVF PRN (19:00)
[2018-01-18] MEDS ORDERED: RESP: ALBUTEROL 2.5 MG/IPRATROPIUM 0.5 MG NEB (SCH) INH ONE (19:00)
[2018-01-18 19:04] LABS: AUTOMATED NEUTROPHIL # 7.9 TH/MM3 (1.8-7.7); BASOPHIL # 0.1 TH/MM3 (0-0.2); EOSINOPHIL # 0.2 TH/MM3 (0-0.4); EOSINOPHIL % 1.7 % (0.0-4.0); HEMATOCRIT 33.3 % (39.0-51.0); HEMOGLOBIN 10.9 GM/DL (13.0-17.0); LYMPHOCYTE # 1.1 TH/MM3 (1.0-4.8); MEAN CELL VOLUME 85.2 FL (80.0-100.0); MEAN CORPUSCULAR HEMOGLOBIN 27.8 PG (27.0-34.0); MEAN CORPUSCULAR HGB CONC 32.6 % (32.0-36.0); MEAN PLATELET VOLUME 7.9 FL (7.0-11.0); MONO % 8.8 % (0.0-8.0); MONOCYTE # 0.9 TH/MM3 (0-0.9); NEUT % 77.5 % (16.0-70.0); PLATELET COUNT 305 TH/MM3 (150-450); RED BLOOD COUNT 3.91 MIL/MM3 (4.50-5.90); RED CELL DISTRIBUTION WIDTH 17.9 % (11.6-17.2); WHITE BLOOD COUNT 10.3 TH/MM3 (4.0-11.0)
[2018-01-18 19:11] LABS: CHLORIDE 101 MEQ/L (98-107); SODIUM (NA) 133 MEQ/L (136-145)
[2018-01-18 19:15] LABS: ALBUMIN 3.3 GM/DL (3.4-5.0); BICARBONATE 24.3 MEQ/L (21.0-32.0); BLOOD UREA NITROGEN 28 MG/DL (7-18); CALCIUM 8.3 MG/DL (8.5-10.1); GLUCOSE,RANDOM 136 MG/DL (74-106)
[2018-01-18 19:17] LABS: INTERNATIONAL NORMALIZED RATIO 2.9 RATIO; PROTHROMBIN TIME - PATIENT 29.7 SEC (9.8-11.6)
[2018-01-18 19:18] LABS: ALT (GPT) 77 U/L (12-78); AST (GOT) 76 U/L (15-37); GLOMERULAR FILTRATION RATE 38 ML/MIN (>89)
[2018-01-18] MEDS ORDERED: SYMB160A INH (19:19)
[2018-01-18] MEDS ORDERED: VICT18IN SQ (19:19)
[2018-01-18] MEDS ORDERED: GLIP10TA6 PO (19:19)
[2018-01-18] MEDS ORDERED: BUME1TAB PO (19:19)
[2018-01-18] MEDS ORDERED: SPIRCAP INH (19:19)
[2018-01-18 19:20] LABS: TOTAL BILIRUBIN ADULT 0.5 MG/DL (0.2-1.0)
[2018-01-18 19:21] LABS: ALKALINE PHOSPHATASE 226 U/L (45-117)
[2018-01-18 19:23] LABS: TROPONIN I LESS THAN 0.02 NG/ML (0.02-0.05)
--- NOTE | 2018-01-18 20:02 | RADRPT ---
EXAM DATE/TIME: 01/18/2018 19:30 [facility] COMPARISON: CHEST SINGLE AP, October 23, 2016, 16:21. INDICATIONS : Short of breath. MEDICAL HISTORY : Chronic obstructive pulmonary disease. Hypertension. Peripheral vascular disease. SURGICAL HISTORY : CABG Coronary artery stent. ENCOUNTER: Initial ACUITY: 1 day PAIN SCORE: 0/10 LOCATION: Bilateral chest FINDINGS: The patient is status post sternotomy. Heart size is enlarged. There are mild bilateral pleural effus ions. There is mild prominence of the interstitial markings throughout. CONCLUSION: Cardiomegaly with mild prominence of the interstitium and bilateral effusions likely related to CHF. Devon Ortiz MD on January 18, 2018 at 20:00 Board Certified Radiologist. This report was verified electronically.
--- NOTE | 2018-01-18 20:03 | PD ---
HPI Chief Complaint: Respiratory Symptoms Time Seen by Provider: 18:42 Travel History International Travel<30 days: No Contact w/Intl Traveler<30days: No Traveled to known affect area: No History of Present Illness HPI Patient is an 87-year-old male who comes in complaining of shortness of breath. He has history of COPD and CHF and reports compliance with his medications. He does have Bumex prescribed to him, but it is as needed and he has not taken that recently. He says his shortness of breath started today. His breathing is worse when he exerts himself. He denies any chest pain. He denies fever chills. He has had a cough productive of sputum. Symptoms are moderate to severe. PFSH Past Medical History Hx Anticoagulant Therapy: Yes (COUMADIN) Asthma: No Autoimmune Disease: No Anxiety: No Depression: No Heart Rhythm Problems: Yes (afib) Cancer: No Cardiac Catheterization: Yes (2014) Cardiovascular Problems: Yes (A.FIB, CABG X 5-(3 grafts down),[place], A-Fib c ablation, CHF) High Cholesterol: Yes Chest Pain: No Congestive Heart Failure: Yes COPD: Yes Coronary Artery Disease: Yes Diabetes: Yes Patient Takes Glucophage: No Diminished Hearing: No Endocrine: Yes Gastrointestinal Disorders: No GERD: No Glaucoma: No Genitourinary: Yes Hepatitis: No Hiatal Hernia: No Hypertension: Yes Immune Disorder: No Implanted Vascular Access Dvce: Yes Kidney Stones: No Musculoskeletal: No Neurologic: No Psychiatric: No Reproductive: No Respiratory: Yes (copd) Integumentary: No Renal Failure: Yes (STAGE III) Sickle Cell Disease: No Sleep Apnea: No Thyroid Disease: No Ulcer: No ?: Not Past Surgical History Abdominal Surgery: No Body Medical Devices: stent in right leg Cardiac Surgery: Yes ([address] dinero May 2005) Coronary Artery Bypass Graft: Yes (5 VESSEL) Eye Surgery: Yes (BILAT. CATARACT REMOVAL) Genitourinary Surgery: No Neurologic Surgery: No Thoracic Surgery: Yes (CABG) Other Surgery: Yes Social History Alcohol Use: Yes (occas. beer) Tobacco Use: No (quit 60 years ago) Substance Use: No Allergies-Medications (Allergen,Severity, Reaction): Coded Allergies: No Known Allergies (Verified Allergy, Unknown, 01/18/18) Reported Meds & Prescriptions Reported Meds & Active Scripts Active Amiodarone (Amiodarone HCl) 200 Mg Tab 200 Mg PO DAILY Aspirin EC (Aspirin) 81 Mg Tabdr 81 Mg PO DAILY Coumadin (Warfarin) 5 Mg Tab 5 Mg PO DAILY START ON Wednesday11/02/2016 Reported Spiriva Handihaler (Tiotropium Inh) 18 Mcg Cap 18 Mcg INH DAILY 1 capsule = 18 mcg Symbicort Inh (Budesonide/Formoterol Fumarate) 160-4.5 Mcg/Act Aero 2 Puff INH Q12HR Bumetanide 1 Mg Tab 1 Mg PO DAILY Victoza Inj (Liraglutide Inj) 18 Mg/3 Ml Pen 0.6 Mg SQ DAILY Glipizide 10 Mg Tab 10 Mg PO DAILY Take 30 minutes before a meal Vitamin D3 (Cholecalciferol) 2,000 Unit Cap 2,000 Units PO DAILY Vitamin B-12 (Cyanocobalamin) 1,000 Mcg Tab 1,000 Mcg PO DAILY Saw Mitchell (Serenoa Repens) 450 Mg Cap 450 Mg PO DAILY [prevagen] 1 Tab PO DAILY Multi-Vitamin Daily (Multiple Vitamin) 1 Tab Tab 1 Tab PO DAILY Lantus Inj (Insulin Glargine) 100 Unit/Ml Inj 27 Unit SQ DAILY Levothyroxine (Levothyroxine Sodium) 25 Mcg Tab 25 Mcg PO DAILY Lantus Solostar Pen Inj (Insulin Glargine) 300 Unit/3 Ml Pen 28 Units SQ Atorvastatin (Atorvastatin Calcium) 80 Mg Tab 80 Mg PO HS Valsartan 320 Mg Tab 320 Mg PO DAILY Calcitriol 0.25 Mcg Cap 0.25 Mcg PO DAILY Isosorbide Mononitrate ER (Isosorbide Mononitrate) 30 Mg Magdi 30 Mg PO DAILY Review of Systems Except as stated in HPI: all other systems reviewed are Neg General / Constitutional: No: Fever, Chills HENT: No: Headaches, Sore Throat Cardiovascular: No: Chest Pain or Discomfort Respiratory: Positive: Cough, Shortness of Breath Gastrointestinal: No: Nausea, Vomiting Musculoskeletal: No: Myalgias, Edema Skin: No Rash, No Change in Pigmentation Neurologic: No: Weakness, Dizziness Physical Exam Narrative GENERAL: Awake and alert, in mild respiratory distress. SKIN: Focused skin assessment warm/dry. HEAD: Atraumatic. Normocephalic. EYES: Pupils equal and round. No scleral icterus. ENT: Mucous membranes pink and moist. NECK: Trachea midline. No JVD. CARDIOVASCULAR: Regular rate and rhythm. No murmur appreciated. RESPIRATORY: No accessory muscle use. Decreased breath sounds both lung bases. Breath sounds equal bilaterally. GASTROINTESTINAL: Abdomen soft, non-tender, nondistended. MUSCULOSKELETAL: No obvious deformities. No clubbing. No cyanosis. bilateral 2 + pitting edema of the lower extremities. NEUROLOGICAL: Awake and alert. No obvious cranial nerve deficits. Motor grossly within normal limits. Normal speech. PSYCHIATRIC: Appropriate mood and affect; insight and judgment normal. Data Data Last Documented VS Vital Signs Date Time Temp Pulse Resp B/P (MAP) Pulse Ox O2 Delivery O2 Flow Rate FiO2 01/18/18 19:31 80 22 191/101 (131) 95 Nasal Cannula 4.00 01/18/18 18:45 96.8 Orders Orders Complete Blood Count With Diff (01/18/18 18:46) Comprehensive Metabolic Panel (01/18/18 18:46) B-Type Natriuretic Peptide (01/18/18 18:46) Act Partial Throm Time (Ptt) (01/18/18 18:46) Prothrombin Time / Inr (Pt) (01/18/18 18:46) Troponin I (01/18/18 18:46) Iv Access Insert/Monitor (01/18/18 18:46) Electrocardiogram (01/18/18 18:46) Ecg Monitoring (01/18/18 18:46) Oximetry (01/18/18 18:46) Oxygen Administration (01/18/18 18:46) Chest, Single Ap (01/18/18 18:46) Sodium Chloride 0.9% Flush (Ns Flush) (01/18/18 19:00) Furosemide Inj (Lasix Inj) (01/18/18 19:00) Albuterol-Ipratropium Neb (Duoneb Neb) (01/18/18 19:00) Place In Observation (01/18/18 ) Vital Signs (Adult) Q4H (01/18/18 20:05) Activity Oob With Assistance (01/18/18 20:05) Diet Heart Healthy (01/19/18 Breakfast) Sodium Chloride 0.9% Flush (Ns Flush) (01/18/18 20:15) Sodium Chloride 0.9% Flush (Ns Flush) (01/18/18 21:00) Acetaminophen (Tylenol) (01/18/18 20:15) Ondansetron Inj (Zofran Inj) (01/18/18 20:15) Basic Metabolic Panel (Bmp) (01/19/18 06:00) Complete Blood Count With Diff (01/19/18 06:00) Resp Oxygen Jeovany C Titrat 1-4 L (01/18/18 ) Heparin Inj (Heparin Inj) (01/18/18 21:00) Naloxone Inj (Narcan Inj) (01/18/18 20:15) Docusate Sodium-Senna (Awilda-Colace) (01/18/18 21:00) Magnesium Hydroxide Liq (Milk Of Magnesi (01/18/18 20:15) Sennosides (Senokot) (01/18/18 20:15) Bisacodyl Supp (Dulcolax Supp) (01/18/18 20:15) Lactulose Liq (Lactulose Liq) (01/18/18 20:15) Albuterol-Ipratropium Neb (Duoneb Neb) (01/18/18 20:15) Furosemide Inj (Lasix Inj) (01/19/18 09:00) Admit Order (Ed Use Only) (01/18/18 ) Labs Laboratory Tests Test 01/18/18 18:45 White Blood Count 10.3 TH/MM3 Red Blood Count 3.91 MIL/MM3 Hemoglobin 10.9 GM/DL Hematocrit 33.3 % Mean Corpuscular Volume 85.2 FL Mean Corpuscular Hemoglobin 27.8 PG Mean Corpuscular Hemoglobin Concent 32.6 % Red Cell Distribution Width 17.9 % Platelet Count 305 TH/MM3 Mean Platelet Volume 7.9 FL Neutrophils (%) (Auto) 77.5 % Lymphocytes (%) (Auto) 11.0 % Monocytes (%) (Auto) 8.8 % Eosinophils (%) (Auto) 1.7 % Basophils (%) (Auto) 1.0 % Neutrophils # (Auto) 7.9 TH/MM3 Lymphocytes # (Auto) 1.1 TH/MM3 Monocytes # (Auto) 0.9 TH/MM3 Eosinophils # (Auto) 0.2 TH/MM3 Basophils # (Auto) 0.1 TH/MM3 CBC Comment DIFF FINAL Differential Comment Prothrombin Time 29.7 SEC Prothromb Time International Ratio 2.9 RATIO Activated Partial Thromboplast Time 36.6 SEC Blood Urea Nitrogen 28 MG/DL Creatinine 1.70 MG/DL Random Glucose 136 MG/DL Total Protein 8.0 GM/DL Albumin 3.3 GM/DL Calcium Level 8.3 MG/DL Alkaline Phosphatase 226 U/L Aspartate Amino Transf (AST/SGOT) 76 U/L Alanine Aminotransferase (ALT/SGPT) 77 U/L Total Bilirubin 0.5 MG/DL Sodium Level 133 MEQ/L Potassium Level 4.6 MEQ/L Chloride Level 101 MEQ/L Carbon Dioxide Level 24.3 MEQ/L Anion Gap 8 MEQ/L Estimat Glomerular Filtration Rate 38 ML/MIN Troponin I LESS THAN 0.02 NG/ML B-Type Natriuretic Peptide 413 PG/ML MDM Medical Decision Making Medical Screen Exam Complete: Yes Emergency Medical Condition: Yes Medical Record Reviewed: Yes Interpretation(s) ECG shows sinus rhythm at a rate of 79, no ST elevation or depression Differential Diagnosis CHF versus COPD versus pneumonia versus ACS Narrative Course Patient is a 87-year-old male who comes in complaining of shortness of breath. Exam shows decreased breath sounds at both lung bases. IV established, labs sent. Labs show a slightly elevated BNP. Chest x-ray performed shows large pleural effusions bilaterally. Patient given Lasix. He will be admitted for further management. Diagnosis Primary Impression: Pleural effusion, bilateral Additional Impression: Congestive heart failure Qualified Codes: I50.9 - Heart failure, unspecified Admitting Information Admitting Physician Requests: Admit Chayo Powell MD Jan 18, 2018 20:03
[2018-01-18] MEDS ORDERED: ACETAMINOPHEN 325 MG TAB PO PRN (20:15)
[2018-01-18] MEDS ORDERED: RESP: ALBUTEROL 2.5 MG/IPRATROPIUM 0.5 MG NEB (PRN) NEB (20:15)
[2018-01-18] MEDS ORDERED: MAGNESIUM HYDROXIDE SUSP 30 ML CUP PO PRN (20:15)
[2018-01-18] MEDS ORDERED: LACTULOSE SYRUP 20 GM/30 ML CUP PO PRN (20:15)
[2018-01-18] MEDS ORDERED: NALOXONE HCL 0.4 MG/ML AMP IV PUSH PRN (20:15)
[2018-01-18] MEDS ORDERED: SENNOSIDES 8.6 MG TAB PO PRN (20:15)
[2018-01-18] MEDS ORDERED: SODIUM CHLORIDE 0.9% FLUSH 10 ML FLUSH IV FLUSH PRN (20:15)
[2018-01-18] MEDS ORDERED: ONDANSETRON HCL 4 MG/2 ML VIAL IVP PRN (20:15)
[2018-01-18] MEDS ORDERED: BISACODYL 10 MG SUPP RECTAL PRN (20:15)
[2018-01-18] MEDS: SODIUM CHLORIDE 0.9% FLUSH 10 ML FLUSH IV FLUSH SCH (21:00)
[2018-01-18] MEDS: DOCUSATE SODIUM 50 MG/SENNA 8.6 MG TAB PO SCH (21:31)
[2018-01-18] MEDS: HEPARIN SODIUM - SQ 10,000 UNITS/ML VIAL SQ SCH (21:31)
--- NOTE | 2018-01-18 22:26 | EKG ---
Date Performed: 01/18/2018 Time Performed: 19:05:24 PTAGE: 87 years EKG: Sinus rhythm INFERIOR MYOCARDIAL INFARCTION ABNORMAL ECG PREVIOUS TRACING : 10/22/2017 20.38 Since the previous tracing, no significant change noted DOCTOR: Arpita Lopez Interpretating Date/Time 01/18/2018 22:24:40
[2018-01-19] VITALS (13 sets, daily range): BP systolic 117–157; BP diastolic 63–79; PULSE 64–85; RESP 14–27; TEMP 96.4–98; O2SAT 90–99
[2018-01-19 08:51] LABS: AUTOMATED NEUTROPHIL # 4.7 TH/MM3 (1.8-7.7); BASOPHIL % 0.6 % (0.0-2.0); EOSINOPHIL # 0.1 TH/MM3 (0-0.4); HEMATOCRIT 28.9 % (39.0-51.0); HEMOGLOBIN 9.8 GM/DL (13.0-17.0); LYMPH % 13.6 % (9.0-44.0); LYMPHOCYTE # 0.9 TH/MM3 (1.0-4.8); MEAN CELL VOLUME 85.5 FL (80.0-100.0); MEAN CORPUSCULAR HGB CONC 33.9 % (32.0-36.0); MEAN PLATELET VOLUME 7.8 FL (7.0-11.0); MONO % 10.5 % (0.0-8.0); MONOCYTE # 0.7 TH/MM3 (0-0.9); NEUT % 74.3 % (16.0-70.0); PLATELET COUNT 238 TH/MM3 (150-450); RED BLOOD COUNT 3.39 MIL/MM3 (4.50-5.90); RED CELL DISTRIBUTION WIDTH 17.6 % (11.6-17.2); WHITE BLOOD COUNT 6.4 TH/MM3 (4.0-11.0)
[2018-01-19] MEDS: DOCUSATE SODIUM 50 MG/SENNA 8.6 MG TAB PO SCH ×2 (09:06→20:42)
[2018-01-19] MEDS: FUROSEMIDE 40 MG/4 ML VIAL IV PUSH SCH ×2 (09:06→17:46)
[2018-01-19] MEDS: SODIUM CHLORIDE 0.9% FLUSH 10 ML FLUSH IV FLUSH SCH ×2 (09:07→20:42)
[2018-01-19] MEDS: HEPARIN SODIUM - SQ 10,000 UNITS/ML VIAL SQ SCH ×2 (09:09→20:43)
[2018-01-19 09:13] LABS: BICARBONATE 28.2 MEQ/L (21.0-32.0); CALCIUM 8.3 MG/DL (8.5-10.1)
[2018-01-19 09:17] LABS: CREATININE 1.8 MG/DL (0.60-1.30)
[2018-01-19] MEDS ORDERED: DEXTROSE 50% IN WATER 50 ML VIAL(D50) IV PUSH PRN (18:00)
[2018-01-19] MEDS ORDERED: ENALAPRILAT 1.25 MG/ML VIAL IV PUSH PRN (18:00)
[2018-01-19] MEDS ORDERED: GLUCAGON 1 MG/ML VIAL OTHER PRN (18:00)
[2018-01-19] MEDS ORDERED: cloNIDine HCL 0.1 MG TAB PO PRN (18:00)
--- NOTE | 2018-01-19 18:00 | HHI.HP ---
[facility] Angelito Tapia MD Admission Diagnosis CHF, pleural effusions Diagnoses: (1) Congestive heart failure Diagnosis: Principal (2) Pleural effusion, bilateral Diagnosis: Principal Travel History International Travel<30 Days: No Contact w/Intl Traveler <30 Da: No Traveled to Known Affected Are: No History of Present Illness Mr. Leone is an 87-year-old male. He came in secondary to shortness of breath. He has a history of COPD and CHF. He says he has a diuretic prescribed but does not take it schedule. He takes as needed. He has not been using this recently. Shortness of breath came on quickly, starting today. She notices it's worse when he tries to exert himself, no chest pain reported. No cough or fever or chills. He has been responding to diuresis thus far. She says this does not feel like an exacerbation of his COPD. No wheezing. Review of Systems Constitutional: DENIES: Fever, Chills Eyes: DENIES: Diplopia, Eye inflammation, Eye pain Ears, nose, mouth, throat: DENIES: Tinnitus, Hearing loss, Vertigo, Nasal discharge Respiratory: COMPLAINS OF: Shortness of breath, DENIES: Cough, Wheezing Cardiovascular: DENIES: Chest pain, Palpitations, Syncope, Dyspnea on Exertion Gastrointestinal: DENIES: Abdominal pain, Black stools, Bloody stools, Constipation Musculoskeletal: DENIES: Joint pain, Muscle aches, Stiffness, Joint Swelling Integumentary: DENIES: Abnormal pigmentation, Nail changes, Pruritus, Rash Hematologic/lymphatic: DENIES: Bruising, Lymphadenopathy Immunologic/allergic: DENIES: Eczema, Urticaria Neurologic: DENIES: Abnormal gait, Headache, Paresthesias Psychiatric: DENIES: Anxiety, Confusion, Hallucinations Past Family Social History Past Medical History Congestive heart failure COPD Atrial fibrillation Coronary artery disease Hyperlipidemia Diabetes mellitus type 2 Hypertension Chronic kidney disease stage III Past Surgical History History of CABG 5 Bilateral cataract removal Stent and right leg Reported Medications Reported Meds & Active Scripts Active Amiodarone (Amiodarone HCl) 200 Mg Tab 200 Mg PO DAILY Aspirin EC (Aspirin) 81 Mg Tabdr 81 Mg PO DAILY Coumadin (Warfarin) 5 Mg Tab 5 Mg PO DAILY START ON Wednesday11/02/2016 Reported Spiriva Handihaler (Tiotropium Inh) 18 Mcg Cap 18 Mcg INH DAILY 1 capsule = 18 mcg Symbicort Inh (Budesonide/Formoterol Fumarate) 160-4.5 Mcg/Act Aero 2 Puff INH Q12HR Bumetanide 1 Mg Tab 1 Mg PO DAILY Victoza Inj (Liraglutide Inj) 18 Mg/3 Ml Pen 0.6 Mg SQ DAILY Glipizide 10 Mg Tab 10 Mg PO DAILYAC Take 30 minutes before a meal Vitamin D3 (Cholecalciferol) 2,000 Unit Cap 2,000 Units PO DAILY Vitamin B-12 (Cyanocobalamin) 1,000 Mcg Tab 1,000 Mcg PO DAILY Saw [place] (Serenoa Repens) 450 Mg Cap 450 Mg PO DAILY [prevagen] 1 Tab PO DAILY Multi-Vitamin Daily (Multiple Vitamin) 1 Tab Tab 1 Tab PO DAILY Lantus Inj (Insulin Glargine) 100 Unit/Ml Inj 12 Unit SQ DAILY Levothyroxine (Levothyroxine Sodium) 25 Mcg Tab 25 Mcg PO DAILY Atorvastatin (Atorvastatin Calcium) 80 Mg Tab 80 Mg PO HS Valsartan 320 Mg Tab 320 Mg PO DAILY Calcitriol 0.25 Mcg Cap 0.25 Mcg PO DAILY Isosorbide Mononitrate ER (Isosorbide Mononitrate) 30 Mg Magdi 30 Mg PO DAILY Allergies: Coded Allergies: No Known Allergies (Verified Allergy, Unknown, 01/18/18) Active Ordered Medications Administered Medications Medications (Trade) Dose Ordered Sig/Bryan Route PRN Reason Start Time Stop Time Status Last Admin Dose Admin Sodium Chloride (NS Flush) 2 ml BID IV FLUSH 01/18/18 21:00 01/19/18 09:07 Heparin Sodium (Porcine) (Heparin Inj) 5,000 units Q12H SQ 01/18/18 21:00 01/19/18 09:09 Senna/Docusate Sodium (Awilda-Colace) 1 tab BID PO 01/18/18 21:00 01/19/18 09:06 Furosemide (Lasix Inj) 40 mg BID@ IV PUSH 01/19/18 09:00 01/19/18 17:46 Family History Diabetes mellitus type 2 in mother Coronary artery disease in father Social History Alcohol Use: Yes (occas. beer) Tobacco Use: No (quit 60 years ago) Substance Use: No Physical Exam Vital Signs Vital Signs Date Time Temp Pulse Resp B/P (MAP) Pulse Ox O2 Delivery O2 Flow Rate FiO2 01/19/18 16:01 64 20 157/75 (102) 99 01/19/18 12:00 97.7 66 14 117/63 (81) 90 01/19/18 08:00 72 01/19/18 08:00 76 27 145/79 (101) 01/19/18 07:30 99 Nasal Cannula 3.00 01/19/18 05:00 66 01/19/18 04:08 98.0 70 16 147/73 (97) 96 01/19/18 03:48 75 18 136/65 (88) 96 Nasal Cannula 3.00 01/19/18 00:33 85 16 142/64 (90) 95 Nasal Cannula 3.00 01/18/18 23:37 77 18 126/66 (86) 97 Nasal Cannula 3.00 01/18/18 23:30 97 Nasal Cannula 3.00 01/18/18 21:31 79 18 134/60 (84) 96 Nasal Cannula 3.00 01/18/18 20:30 78 18 158/82 (107) 96 Nasal Cannula 3.00 01/18/18 19:31 80 22 191/101 (131) 95 Nasal Cannula 4.00 01/18/18 19:20 95 Nasal Cannula 4.00 01/18/18 19:20 95 Nasal Cannula 4.00 01/18/18 19:07 95 4.00 01/18/18 18:45 96.8 79 32 213/100 (137) 92 Physical Exam GENERAL: NAD, A&Ox3 HEAD: Normocephalic. NECK: Supple, trachea midline. No lymphadenopathy. EYES: No scleral icterus. No injection or drainage. CARDIOVASCULAR: Regular rate and rhythm without murmurs, gallops, or rubs. RESPIRATORY: Breath sounds equal bilaterally. No accessory muscle use. Crackles at bases bilaterally, no respiratory distress. GASTROINTESTINAL: Abdomen soft, non-tender, nondistended. MUSCULOSKELETAL: No cyanosis, or edema. SKIN: Warm and dry. NEURO: No focal neurological deficitis. Laboratory Laboratory Tests Test 01/18/18 18:45 01/19/18 07:46 White Blood Count 10.3 6.4 Red Blood Count 3.91 3.39 Hemoglobin 10.9 9.8 Hematocrit 33.3 28.9 Mean Corpuscular Volume 85.2 85.5 Mean Corpuscular Hemoglobin 27.8 29.0 Mean Corpuscular Hemoglobin Concent 32.6 33.9 Red Cell Distribution Width 17.9 17.6 Platelet Count 305 238 Mean Platelet Volume 7.9 7.8 Neutrophils (%) (Auto) 77.5 74.3 Lymphocytes (%) (Auto) 11.0 13.6 Monocytes (%) (Auto) 8.8 10.5 Eosinophils (%) (Auto) 1.7 1.0 Basophils (%) (Auto) 1.0 0.6 Neutrophils # (Auto) 7.9 4.7 Lymphocytes # (Auto) 1.1 0.9 Monocytes # (Auto) 0.9 0.7 Eosinophils # (Auto) 0.2 0.1 Basophils # (Auto) 0.1 0.0 CBC Comment DIFF FINAL DIFF FINAL Differential Comment Prothrombin Time 29.7 Prothromb Time International Ratio 2.9 Activated Partial Thromboplast Time 36.6 Blood Urea Nitrogen 28 29 Creatinine 1.70 1.80 Random Glucose 136 106 Total Protein 8.0 Albumin 3.3 Calcium Level 8.3 8.3 Alkaline Phosphatase 226 Aspartate Amino Transf (AST/SGOT) 76 Alanine Aminotransferase (ALT/SGPT) 77 Total Bilirubin 0.5 Sodium Level 133 139 Potassium Level 4.6 5.0 Chloride Level 101 104 Carbon Dioxide Level 24.3 28.2 Anion Gap 8 7 Estimat Glomerular Filtration Rate 38 36 Troponin I LESS THAN 0.02 B-Type Natriuretic Peptide 413 Result Diagram: 01/19/18 0746 01/19/18 0746 Imaging Last Impressions Chest X-Ray 01/18/18 1846 Signed Impressions: Service Date/Time: Thursday, January 18, 2018 19:30 - CONCLUSION: Cardiomegaly with mild prominence of the interstitium and bilateral effusions likely related to CHF. MD Liz Juarezi VTE Risk Assessment [place]ulioi VTE Risk Assessment: Mod/High Risk (score >= 2) Caprini Risk Assessment Model Point Value = 1 Point Value = 2 Point Value = 3 Point Value = 5 Age 41-60 Minor surgery BMI > 25 kg/m2 Swollen legs Varicose veins or History of unexplained or recurrent spontaneous Oral contraceptives or hormone replacement Sepsis (< 1 month) Serious lung disease, including pneumonia (< 1 month) Abnormal pulmonary function Acute myocardial infarction Congestive heart failure (< 1 month) History of inflammatory bowel disease Medical patient at bed rest Age 61-74 Arthroscopic surgery Major open surgery (> 45 min) Laparoscopic surgery (> 45 min) Malignancy Confined to bed (> 72 hours) Immobilizing plaster cast Central venous access Age >= 75 History of VTE Family history of VTE Factor V Leiden Prothrombin 25102G Lupus anticoagulant Anticardiolipin antibodies Elevated serum homocysteine Heparin-induced thrombocytopenia Other congenital or acquired thrombophilia Stroke (< 1 month) Elective arthroplasty Hip, pelvis, or leg fracture Acute spinal cord injury (< 1 month) Prophylaxis Regimen Total Risk Factor Score Risk Level Prophylaxis Regimen 0-1 Low Early ambulation 2 Moderate Order ONE of the following: *Sequential Compression Device (SCD) *Heparin 5000 units SQ BID 3-4 Higher Order ONE of the following medications: *Heparin 5000 units SQ TID *Enoxaparin/Lovenox 40 mg SQ daily (WT < 150 kg, CrCl > 30 mL/min) *Enoxaparin/Lovenox 30 mg SQ daily (WT < 150 kg, CrCl > 10-29 mL/min) *Enoxaparin/Lovenox 30 mg SQ BID (WT < 150 kg, CrCl > 30 mL/min) AND/OR *Sequential Compression Device (SCD) 5 or more Highest Order ONE of the following medications: *Heparin 5000 units SQ TID (Preferred with Epidurals) *Enoxaparin/Lovenox 40 mg SQ daily (WT < 150 kg, CrCl > 30 mL/min) *Enoxaparin/Lovenox 30 mg SQ daily (WT < 150 kg, CrCl > 10-29 mL/min) *Enoxaparin/Lovenox 30 mg SQ BID (WT < 150 kg, CrCl > 30 mL/min) AND *Sequential Compression Device (SCD) Assessment and Plan Problem List: (1) CHF exacerbation ICD Code: I50.9 - Heart failure, unspecified (2) Pleural effusion, bilateral ICD Code: J90 - Pleural effusion, not elsewhere classified Status: Acute (3) Congestive heart failure ICD Code: I50.9 - Heart failure, unspecified Status: Acute Assessment and Plan 87-year-old male admitted secondary to CHF exacerbation CHF exacerbation Respiratory failure Diuresis Follow renal function Pursue fluid balance COPD No acute exacerbation Continue baseline treatments Follow respiratory status Atrial fibrillation Coronary artery disease No chest pain Rate controlled Continue baseline treatments Continue Coumadin Follow INR Hyperlipidemia Continue present treatment Follow as an outpatient Hypertension Continue baseline treatment Follow blood pressures Adjust treatments as needed Diabetes mellitus type 2 Follow blood sugars Insulin sliding scale Diabetic diet Continue baseline treatments Chronic kidney disease stage III Follow renal function Avoid nephrotoxins DVT prophylaxis Coumadin Physician Certification 2 Midnight Certification Type: Admission for Inpatient Services Order for Inpatient Services The services are ordered in accordance with Medicare regulations or non- Medicare payer requirements, as applicable. In the case of services not specified as inpatient-only, they are appropriately provided as inpatient services in accordance with the 2-midnight benchmark. Estimated LOS (days): 2 days is the estimated time the patient will need to remain in the hospital, assuming treatment plan goals are met and no additional complications. Post-Hospital Plan: Home Problem Qualifiers (1) Congestive heart failure: Qualified Codes: I50.9 - Heart failure, unspecified Rivera Walter MD Jan 19, 2018 18:00
[2018-01-19] MEDS: INSULIN ASPART SUPPLEMENTAL SCALE SQ SCH ×2 (18:30→20:44)
[2018-01-19] MEDS: BUDESONIDE-FORMOTEROL 160/4.5 MCG INHALER INH SCH (20:39)
[2018-01-19] MEDS ORDERED: ATORVASTATIN 40 MG TAB PO SCH (21:00)
[2018-01-20] VITALS: BP 124/60; PULSE 70; RESP 20; TEMP 97.3; O2SAT 98
[2018-01-20 04:00] VITALS: BP 138/78; PULSE 67; RESP 18; TEMP 97.8; O2SAT 95
[2018-01-20] MEDS ORDERED: LEVOTHYROXINE SODIUM 25 MCG TAB PO SCH (06:00)
[2018-01-20 06:38] LABS: AUTOMATED NEUTROPHIL # 4.1 TH/MM3 (1.8-7.7); BASOPHIL % 0.7 % (0.0-2.0); EOSINOPHIL # 0.2 TH/MM3 (0-0.4); EOSINOPHIL % 3.3 % (0.0-4.0); HEMATOCRIT 31.9 % (39.0-51.0); HEMOGLOBIN 10.1 GM/DL (13.0-17.0); LYMPH % 14.4 % (9.0-44.0); LYMPHOCYTE # 0.8 TH/MM3 (1.0-4.8); MEAN CORPUSCULAR HEMOGLOBIN 27.1 PG (27.0-34.0); MEAN CORPUSCULAR HGB CONC 31.6 % (32.0-36.0); MEAN PLATELET VOLUME 8.2 FL (7.0-11.0); MONO % 12.3 % (0.0-8.0); MONOCYTE # 0.7 TH/MM3 (0-0.9); NEUT % 69.3 % (16.0-70.0); PLATELET COUNT 258 TH/MM3 (150-450); RED BLOOD COUNT 3.71 MIL/MM3 (4.50-5.90); RED CELL DISTRIBUTION WIDTH 17.6 % (11.6-17.2); WHITE BLOOD COUNT 5.9 TH/MM3 (4.0-11.0)
[2018-01-20 06:41] LABS: CHLORIDE 103 MEQ/L (98-107); SODIUM (NA) 140 MEQ/L (136-145)
[2018-01-20 06:45] LABS: INTERNATIONAL NORMALIZED RATIO 1.7 RATIO; PROTHROMBIN TIME - PATIENT 17.7 SEC (9.8-11.6)
[2018-01-20 06:53] LABS: CALCIUM 8.8 MG/DL (8.5-10.1)
[2018-01-20 06:54] LABS: ALBUMIN 2.9 GM/DL (3.4-5.0); BICARBONATE 30.8 MEQ/L (21.0-32.0); BLOOD UREA NITROGEN 32 MG/DL (7-18); GLUCOSE,RANDOM 98 MG/DL (74-106)
[2018-01-20 06:57] LABS: ALT (GPT) 60 U/L (12-78); AST (GOT) 47 U/L (15-37); GLOMERULAR FILTRATION RATE 38 ML/MIN (>89)
[2018-01-20 06:58] LABS: TOTAL BILIRUBIN ADULT 0.9 MG/DL (0.2-1.0)
[2018-01-20 07:00] LABS: ALKALINE PHOSPHATASE 191 U/L (45-117); TOTAL PROTEIN 7.3 GM/DL (6.4-8.2)
[2018-01-20] MEDS ORDERED: glipiZIDE 10 MG TAB PO SCH (08:00)
[2018-01-20 08:24] VITALS: BP 122/57; PULSE 65; RESP 16; TEMP 96.8; O2SAT 93
[2018-01-20] MEDS: INSULIN ASPART SUPPLEMENTAL SCALE SQ SCH ×2 (08:47→12:00)
[2018-01-20] MEDS: SODIUM CHLORIDE 0.9% FLUSH 10 ML FLUSH IV FLUSH SCH (08:47)
[2018-01-20] MEDS: HEPARIN SODIUM - SQ 10,000 UNITS/ML VIAL SQ SCH (08:48)
[2018-01-20] MEDS: DOCUSATE SODIUM 50 MG/SENNA 8.6 MG TAB PO SCH (08:49)
[2018-01-20] MEDS: FUROSEMIDE 40 MG/4 ML VIAL IV PUSH SCH (08:50)
[2018-01-20] MEDS: BUDESONIDE-FORMOTEROL 160/4.5 MCG INHALER INH SCH (08:58)
[2018-01-20] MEDS ORDERED: TIOTROPIUM BROMIDE 18 MCG INH INH SCH (09:00)
[2018-01-20] MEDS ORDERED: CALCITRIOL 0.25 MCG CAP PO SCH (09:00)
[2018-01-20] MEDS ORDERED: LIRAGLUTIDE 0.6 MG SQ SCH (09:00)
[2018-01-20] MEDS ORDERED: ASPIRIN EC 81 MG TABEC PO SCH (09:00)
[2018-01-20] MEDS ORDERED: BUMETANIDE 1 MG TAB PO SCH (09:00)
[2018-01-20] MEDS ORDERED: MULTIVITAMIN TAB PO SCH (09:00)
[2018-01-20] MEDS ORDERED: CHOLECALCIFEROL (VIT D3) 1000 UNIT TAB PO SCH (09:00)
[2018-01-20] MEDS ORDERED: INSULIN DETEMIR 100 UNITS/ML VIAL SQ SCH (09:00)
[2018-01-20] MEDS ORDERED: AMIODARONE 200 MG TAB PO SCH (09:00)
[2018-01-20] MEDS ORDERED: CYANOCOBALAMIN 1,000 MCG TAB PO SCH (09:00)
[2018-01-20] MEDS ORDERED: ISOSORBIDE MONONITRATE 30 MG CR TAB (IMDUR) PO SCH (09:00)
[2018-01-20] MEDS ORDERED: NON-FORMULARY DRUG (Saw Palmetto (Serenoa Repens) 450 MG) PO SCH (09:00)
[2018-01-20] MEDS ORDERED: VALSARTAN 160 MG TAB PO SCH (09:00)
[2018-01-20] MEDS ORDERED: VALSARTAN 80 MG TAB PO SCH (09:00)
[2018-01-20 10:02] VITALS: O2SAT 97
[2018-01-20 12:27] VITALS: BP 121/64; PULSE 72; RESP 16; TEMP 96.2; O2SAT 95
[2018-01-20] MEDS ORDERED: FURO1TAB62 PO (14:00)
[2018-01-20] MEDS ORDERED: POTA10TA2 PO (14:00)
[2018-01-20] MEDS ORDERED: WARFARIN SOD 5 MG TAB PO SCH (16:00)
--- NOTE | 2018-01-20 17:56 | HHI.DS ---
Discharge Summary Admission Date Jan 18, 2018 at 20:09 Discharge Date: Jan 20, 2018 Admitting Diagnosis CHF, pleural effusions (1) CHF exacerbation ICD Code: I50.9 - Heart failure, unspecified Diagnosis: Principal (2) Pleural effusion, bilateral ICD Code: J90 - Pleural effusion, not elsewhere classified Diagnosis: Principal Status: Acute (3) Congestive heart failure ICD Code: I50.9 - Heart failure, unspecified Diagnosis: Principal Status: Acute Procedures None Brief History - From Admission Mr. Leone is an 87-year-old male. He came in secondary to shortness of breath. He has a history of COPD and CHF. He says he has a diuretic prescribed but does not take it schedule. He takes as needed. He has not been using this recently. Shortness of breath came on quickly, starting today. She notices it's worse when he tries to exert himself, no chest pain reported. No cough or fever or chills. He has been responding to diuresis thus far. She says this does not feel like an exacerbation of his COPD. No wheezing. CBC/BMP: 01/20/18 0450 01/20/18 0450 Significant Findings Laboratory Tests Test 01/18/18 18:45 01/19/18 07:46 01/20/18 04:50 Red Blood Count 3.91 MIL/MM3 (4.50-5.90) 3.39 MIL/MM3 (4.50-5.90) 3.71 MIL/MM3 (4.50-5.90) Hemoglobin 10.9 GM/DL (13.0-17.0) 9.8 GM/DL (13.0-17.0) 10.1 GM/DL (13.0-17.0) Hematocrit 33.3 % (39.0-51.0) 28.9 % (39.0-51.0) 31.9 % (39.0-51.0) Red Cell Distribution Width 17.9 % (11.6-17.2) 17.6 % (11.6-17.2) 17.6 % (11.6-17.2) Neutrophils (%) (Auto) 77.5 % (16.0-70.0) 74.3 % (16.0-70.0) Monocytes (%) (Auto) 8.8 % (0.0-8.0) 10.5 % (0.0-8.0) 12.3 % (0.0-8.0) Neutrophils # (Auto) 7.9 TH/MM3 (1.8-7.7) Prothrombin Time 29.7 SEC (9.8-11.6) 17.7 SEC (9.8-11.6) Activated Partial Thromboplast Time 36.6 SEC (24.3-30.1) Blood Urea Nitrogen 28 MG/DL (7-18) 29 MG/DL (7-18) 32 MG/DL (7-18) Creatinine 1.70 MG/DL (0.60-1.30) 1.80 MG/DL (0.60-1.30) 1.70 MG/DL (0.60-1.30) Random Glucose 136 MG/DL (74-106) Albumin 3.3 GM/DL (3.4-5.0) 2.9 GM/DL (3.4-5.0) Calcium Level 8.3 MG/DL (8.5-10.1) 8.3 MG/DL (8.5-10.1) Alkaline Phosphatase 226 U/L (45-117) 191 U/L (45-117) Aspartate Amino Transf (AST/SGOT) 76 U/L (15-37) 47 U/L (15-37) Sodium Level 133 MEQ/L (136-145) Estimat Glomerular Filtration Rate 38 ML/MIN (>89) 36 ML/MIN (>89) 38 ML/MIN (>89) Troponin I LESS THAN 0.02 NG/ML B-Type Natriuretic Peptide 413 PG/ML (0-100) Lymphocytes # (Auto) 0.9 TH/MM3 (1.0-4.8) 0.8 TH/MM3 (1.0-4.8) Mean Corpuscular Hemoglobin Concent 31.6 % (32.0-36.0) Hospital Course Mr. Leone is an 87-year-old male. He was admitted secondary to CHF exacerbation with mild pleural effusions. He has been gaining weight. Pleural effusions are likely related to CHF. At baseline he has prescribed Bumex to use as needed. Patient did not feel symptomatic until shortly before he came into the ER. It is likely he has pulmonary edema acutely related to gradual fluid retention in the body. She was treated with diuretics and has had improvement through time. Initially at time of admit he had respiratory failure and was oxygen dependent. Today with an oxygen walk testing is able to tolerate ambulation without oxygen. He will resume use of oxygen at home at night only. He is ambulating greater than 400 feet. Medically clear and stable for discharge home today. Pt Condition on Discharge: Stable Discharge Disposition: Discharge Home Discharge Time: <= 30 minutes Discharge Instructions DIET: Follow Instructions for: Heart Healthy Diet Activities you can perform: Regular-No Restrictions Follow up Referrals: Cardiology - 2 Weeks PCP Follow-up - 2 Weeks PCP Follow-up New Medications: Furosemide (Lasix) 20 Mg Tab 20 MG PO DAILY for Fluid Balance, #30 TAB 0 Refills Potassium Chloride ER (Potassium Chloride ER) 10 Meq Tab 10 MEQ PO DAILY for Electrolyte Replacement, #30 TAB 0 Refills Continued Medications: Amiodarone (Amiodarone) 200 Mg Tab 200 MG PO DAILY for Regulate Heart Beat, #30 TAB [address] (Aspirin EC) 81 Mg Tabdr 81 MG PO DAILY for protect heart, #30 TAB 0 Refills Atorvastatin (Atorvastatin) 80 Mg Tab 80 MG PO HS for Cholesterol Management, #30 TAB 0 Refills Budesonide-Formoterol Inh (Symbicort Inh) 160-4.5 Mcg/Act Aero 2 PUFF INH Q12HR, #1 INHALER 0 Refills Bumetanide (Bumetanide) 1 Mg Tab 1 MG PO DAILY, #30 TAB 0 Refills Calcitriol (Calcitriol) 0.25 Mcg Cap 0.25 MCG PO DAILY for Calcium Supplement, #30 CAP 0 Refills Cholecalciferol (Vitamin D3) 2,000 Unit Cap 2000 UNITS PO DAILY for Nutritional Supplement, #1 BOTTLE 0 Refills Cyanocobalamin (Vitamin B-12) 1,000 Mcg Tab 1000 MCG PO DAILY for Nutritional Supplement, #1 BOTTLE 0 Refills Glipizide (Glipizide) 10 Mg Tab 10 MG PO DAILYAC for Blood Sugar Management, #30 TAB 0 Refills Take 30 minutes before a meal Insulin Glargine Inj (Lantus Inj) 100 Unit/Ml Inj 12 UNIT SQ DAILY Isosorbide Mononitrate ER (Isosorbide Mononitrate ER) 30 Mg Magdi 30 MG PO DAILY for Prevent Chest Pain, #30 TAB 0 Refills Levothyroxine (Levothyroxine) 25 Mcg Tab 25 MCG PO DAILY for Thyroid, #30 TAB 0 Refills Liraglutide Inj (Victoza Inj) 18 Mg/3 Ml Pen 0.6 MG SQ DAILY, #1 PEN 0 Refills Multiple Vitamin (Multi-Vitamin Daily) 1 Tab Tab 1 TAB PO DAILY for Nutritional Supplement, TAB 0 Refills [place] (Serenoa Repens) (S[place] (Serenoa Repens)) 450 Mg Cap 450 MG PO DAILY, CAP 0 Refills Tiotropium Inh (Spiriva Handihaler) 18 Mcg Cap 18 MCG INH DAILY for COPD, #30 CAP 0 Refills 1 capsule = 18 mcg Valsartan (Valsartan) 320 Mg Tab 320 MG PO DAILY, #30 TAB 0 Refills Warfarin (Coumadin) 5 Mg Tab 5 MG PO DAILY for Blood Clot Prevention, #30 TAB 0 Refills START ON Wednesday11/02/2016 [prevagen] () 1 TAB PO DAILY Rivera Walter MD Jan 20, 2018 17:56
== END 2018-01-20 14:54 | disposition home or self-care (01) ==
LOC: PHED 18:34 → PHEDA 20:09 → PHEDH 01-19 00:39 → PHICU 01-19 04:01 → PH3A 01-19 19:02
PROVIDERS: ADMIT Hospitalist; ATTEND Hospitalist
DX: I13.0 Hypertensive heart and chronic kidney disease with heart failure and stage 1 through stage 4 chronic kidney disease, or unspecified chronic kidney disease (principal); I50.9 Heart failure, unspecified; E11.22 Type 2 diabetes mellitus with diabetic chronic kidney disease; N18.3 Chronic kidney disease, stage 3 (moderate); J90 Pleural effusion, not elsewhere classified; J96.90 Respiratory failure, unspecified, unspecified whether with hypoxia or hypercapnia; I48.91 Unspecified atrial fibrillation; R94.31 Abnormal electrocardiogram [ECG] [EKG]; R05 Cough; I25.10 Atherosclerotic heart disease of native coronary artery without angina pectoris; J44.9 Chronic obstructive pulmonary disease, unspecified; E11.51 Type 2 diabetes mellitus with diabetic peripheral angiopathy without gangrene; E78.00 Pure hypercholesterolemia, unspecified; Z95.1 Presence of aortocoronary bypass graft; Z79.899 Other long term (current) drug therapy; Z79.82 Long term (current) use of aspirin; Z79.01 Long term (current) use of anticoagulants
CPT/HCPCS: 71045; 80048; 80053; 82948; 83880; 84484; 85025; 85610; 85730; 93005; 94618; 94664; 96372; 96374; 96376; 97162; 99285; G0378; G8987; G8988; J1644; J1815; J1940

== ENCOUNTER 2018-05-31 11:48 | Inpatient (IN) ==
[2018-05-31] MEDS ORDERED: Sod Chloride 0.9% Inj 1,000 ML IV.SIG ONE (12:14)
--- NOTE | 2018-05-31 12:23 | ED ---
HPI General Chief Complaint: Syncope Stated Complaint: Medical Complaint Time Seen by Provider: 05/31/18 11:51 History of Present Illness HPI narrative: 88-year-old male with a history of CAD, CABG, COPD, A. fib, anticoagulation, insulin-dependent diabetes, hypertension is brought to the emergency department by EMS for evaluation of syncope. Patient states he was walking from his car to his doctor's office at the [facility] when he suddenly felt slightly lightheaded and fell. He denies head trauma or loss of consciousness. He denies any preceding chest pain or shortness of breath. He states that over the past few days he has had a slight aching pain to his right lateral chest wall that is a 2 on a scale of 1-10. He states he does have shortness of breath however this is common for him due to history of COPD and oxygen dependent at night. He states that when he woke up this morning his fasting blood sugar was much higher than it typically is, today it was in the low 300s and typically is in the low 100s. He states that he took a little extra insulin than normal. He took Lantus 17 units and NovoLog 3 units with breakfast this morning at 9 AM. He also took glipizide this morning before breakfast. He states he has been feeling well overall recently. Denies any fever, chills, nausea, vomiting, diarrhea, constipation, black stool, bloody stool, cough or cold symptoms, abdominal pain. No other complaints or concerns. Related Data Home Medications Medication Instructions Recorded Confirmed albuterol sulfate 2.5 mg INHALATION DAILY 05/31/18 05/31/18 amiodarone 200 mg PO DAILY 05/31/18 05/31/18 amiodarone 200 mg PO DAILY 05/31/18 05/31/18 aspirin 81 mg PO QPM 05/31/18 05/31/18 aspirin [Aspir-81] 81 mg PO DAILY 05/31/18 05/31/18 atorvastatin 80 mg PO DAILY 05/31/18 05/31/18 atorvastatin 80 mg PO QPM 05/31/18 05/31/18 budesonide-formoterol [Symbicort] 2 puff INHALATION BID 05/31/18 05/31/18 budesonide-formoterol [Symbicort] 2 puff INHALATION BID 05/31/18 05/31/18 bumetanide 1 mg PO DAILY PRN 05/31/18 05/31/18 bumetanide 1 mg PO DAILY PRN 05/31/18 05/31/18 cholecalciferol (vitamin D3) 2,000 unit PO DAILY 05/31/18 05/31/18 [Vitamin D3] cholecalciferol (vitamin D3) 2,000 unit PO DAILY 05/31/18 05/31/18 [Vitamin D3] cyanocobalamin (vitamin B-12) 1,000 mcg PO DAILY 05/31/18 05/31/18 [Vitamin B-12] cyanocobalamin (vitamin B-12) 1,000 mcg PO DAILY 05/31/18 05/31/18 [Vitamin B-12] glipizide 10 mg PO DAILY 05/31/18 05/31/18 insulin aspart U-100 [Novolog 1 sliding scale dose SUB-Q TIDAC 05/31/18 05/31/18 U-100 Insulin aspart] insulin glargine [Lantus Solostar 28 unit SUB-Q DAILY 05/31/18 05/31/18 U-100 Insulin] insulin glargine [Lantus U-100 28 unit SUB-Q DAILY 05/31/18 05/31/18 Insulin] insulin regular human [Novolin R 2 unit SUB-Q TID 05/31/18 05/31/18 Regular U-100 Insuln] isosorbide mononitrate 30 mg PO DAILY 05/31/18 05/31/18 isosorbide mononitrate 30 mg PO DAILY 05/31/18 05/31/18 levothyroxine 25 mcg PO DAILY 05/31/18 05/31/18 levothyroxine 25 mcg PO DAILY 05/31/18 05/31/18 liraglutide [Victoza 2-Geovanny] 0.6 mg SUB-Q DAILY 05/31/18 05/31/18 liraglutide [Victoza 2-Geovanny] 0.6 mg SUB-Q DAILY 05/31/18 05/31/18 figidycz-hwn-UQ-lycopen-lutein 1 tab PO DAILY 05/31/18 05/31/18 [Centrum Silver Men] ckhynvgt-vlu-DD-lycopen-lutein 1 tab PO DAILY 05/31/18 05/31/18 [Centrum Silver] saw palmetto fruit 450 mg PO BID 05/31/18 05/31/18 tiotropium bromide [Spiriva with 1 cap INHALATION DAILY 05/31/18 05/31/18 HandiHaler] tiotropium bromide [Spiriva with 1 cap INHALATION DAILY 05/31/18 05/31/18 HandiHaler] Previous Rx's Medication Instructions Recorded apixaban [Eliquis] 2.5 mg PO BID tab 06/02/18 losartan 50 mg PO DAILY #30 tab 06/02/18 Allergies Allergy/AdvReac Type Severity Reaction Status Date / Time No Known Allergies Allergy Unknown Uncoded 01/18/18 18:57 Review of Systems Except as stated in HPI: all other systems reviewed are negative [facility] Family History Family History Other Family history of hypertension Social History Social History Substance History: No History of Abuse Second Hand Smoke Exposure: No Smoking Status: Former smoker Tobacco Type: Cigars How Often Do You Have a Drink Containing Alcohol: Never Hx Recent Travel: No Recent Travel [facility] within the Last 8 Weeks: No Recent Out of Country Travel within the Last 8 Weeks: No Immunization History Tetanus Immunization: <5 Years Hx Influenza Vaccine This Season: Yes Exam Narrative Exam Narrative: GENERAL: Well-nourished and well-developed pleasant patient in no acute distress who is nontoxic appearing. SKIN: Warm and dry. Skin tears noted to bilateral elbows and knees. Abrasion to scalp. HEAD: Normocephalic and atraumatic. No bony point tenderness or crepitus noted throughout the sinuses. EYES: No injection, drainage, or hyphema noted. PERRLA. EOMI. ENT: No nasal drainage noted. Oropharynx is clear and the TMs are normal with good landmarks. NECK: Supple and the trachea is midline. No midline cervical spine tenderness to palpation. Full range of motion. CARDIOVASCULAR: Regular rate and rhythm. RESPIRATORY: Breath sounds are equal bilaterally with no accessory muscle use, wheezing, rhonchi, or crackles. GASTROINTESTINAL: Abdomen is soft, non-tender, and nondistended. No hepatosplenomegaly. MUSCULOSKELETAL: No obvious deformities, swelling, cyanosis, or ecchymosis is present throughout the upper and lower extremities. Patient has full range of motion without any signs of neurovascular compromise. Distal pulses are 2+ throughout. NEUROLOGICAL: Awake, alert, and oriented. Normal speech and gait. Cranial nerves are grossly intact. Procedures Hemaprompt Stool Procedural Steps Taken: specimen placed in appropriate test area, developer placed on specimen and control areas and controls appropriately positive and negative Hemaprompt Stool Result: negative Course Initial Documented Vital Signs Temperature 99.3 F 05/31/18 11:58 Pulse Rate 70 05/31/18 11:58 Respiratory Rate 18 05/31/18 11:58 Blood Pressure 124/57 L 05/31/18 11:58 Pulse Oximetry 93 L 05/31/18 11:58 Last Documented Vital Signs Temperature 97.7 F 06/02/18 12:00 Pulse Rate 64 06/02/18 12:05 Respiratory Rate 18 06/02/18 12:05 Blood Pressure 109/57 L 06/02/18 12:00 Pulse Oximetry 98 06/02/18 12:00 Medical Decision Making CAMPBELL Attestation CAMPBELL supervised visit: Yes Attestation: I, Dr. Woo, have reviewed the advance practice practitioner's documentation and am in agreement, met with the patient face to face, made the diagnosis, and the medical decision making was done by me. *My assessment and Findings: Patient seen and evaluated with PA, please see PA notes for further details. Chest x-ray showing some pulmonary abnormalities, effusion, CAT scan have been requested by radiologist for further evaluation, shows a possible underlying pneumonia. At this point, patient will be treated with antibiotics. Lab work was also positive for UTI. IV antibiotics are initiated after cultures were drawn. At this point, EKG did not show significant dysrhythmias. Plan would be to admit him for further treatment. Case was discussed with [facility] hospitalists for admission. CT brain was negative as well. [facility] Narrative Medical decision making narrative: 88-year-old male is brought to the emergency department by EMS for evaluation of syncope. IV access is obtained, labs of been drawn and sent. Patient is placed on cardiac telemetry and pulse oximetry monitoring. Patient is administered IV fluids for hyperglycemia. EKG shows sinus rhythm with no acute ST elevations or depressions. Head CT imaging has been ordered due to abrasion noted on scalp and anticoagulation. Head CT is negative. Chest CT shows pao pleural effusions with right upper parenchymal density consistent with inflammation or infection. Hemoccult negative. Mild anemia noted on CBC. Kidney function is slightly worse from previous labs. Glucose has come down to 299 with fluids. Patient has CAD, CHF with syncope and elevated troponin. He will be admitted for further evaluation and cardiology consultation. Differential Diagnosis Differential Diagnosis: Dehydration versus electrolyte abnormality versus hyperglycemia versus hypoglycemia versus arrhythmia Lab Data Result diagrams: 06/01/18 07:33 05/31/18 23:27 Lab Results 05/31/18 05/31/18 05/31/18 Range/Units 12:04 12:25 12:25 WBC 7.6 (4.0-11.0) th/mm3 RBC 3.67 L (4.50-5.90) mil/mm3 Hgb 12.2 L (13.0-17.0) gm/dL Hct 35.8 L (39.0-51.0) % MCV 97.5 (80.0-100.0) fL MCH 33.1 (27.0-34.0) pg MCHC 34.0 (32.0-36.0) % RDW 14.7 (11.6-17.2) % Plt Count 158 (150-450) th/mm3 MPV 9.3 (7.0-11.0) fL Neut % (Auto) 80.2 H (16.0-70.0) % Lymph % (Auto) 8.3 L (9.0-44.0) % [place] % (Auto) 11.1 H (0.0-8.0) % Eos % (Auto) 0.0 (0.0-4.0) % Baso % (Auto) 0.4 (0.0-2.0) % Neut # (Auto) 6.1 (1.8-7.7) th/mm3 Lymph # (Auto) 0.6 L (1.0-4.8) th/mm3 [place] # (Auto) 0.8 (0.0-0.9) th/mm3 Eos # (Auto) 0.0 (0.0-0.4) th/mm3 Baso # (Auto) 0.0 (0.0-0.2) th/mm3 WBC Differential . Differential Comment Auto diff final PT (9.8-11.6) sec INR Ratio Sodium 135 L (136-145) meq/L Potassium 4.5 (3.5-5.1) meq/L Chloride 100 (98-107) meq/L Carbon Dioxide 28.8 (21.0-32.0) meq/L Anion Gap 6 (5-15) meq/L BUN 36 H (7-18) mg/dL Creatinine 2.15 H (0.60-1.30) mg/dL Estimated GFR 29 L (>89) mL/min POC Glucose 358 H (68-110) mg/dl Random Glucose 332 H (74-106) mg/dL Hemoglobin A1c (4.3-6.0) % Calcium 7.9 L (8.5-10.1) mg/dL Phosphorus (2.5-4.9) mg/dL Magnesium (1.5-2.5) mg/dL Total Bilirubin 0.8 (0.2-1.0) mg/dL AST 39 H (15-37) U/L ALT 38 (12-78) U/L Alkaline Phosphatase 123 H (45-117) U/L Total Creatine Kinase (39-308) U/L Troponin I 0.06 H (0.02-0.05) ng/mL Total Protein 6.6 (6.4-8.2) g/dL Albumin 2.7 L (3.4-5.0) g/dL Triglycerides (42-150) mg/dL Cholesterol (120-200) mg/dL LDL Cholesterol, Calc (0-99) mg/dL HDL Cholesterol (40.0-60.0) mg/dL Cholesterol/HDL Ratio Ratio TSH (0.358-3.740) uIU/mL Free T4 (0.76-1.46) ng/dL Urine Color (Yellw/Straw) Urine Clarity (Clear) Urine pH (5.0-8.5) Ur Specific [place] (1.002-1.035) Urine Protein (Neg-Trace) mg/dL Urine Glucose (UA) (Negative) mg/dL Urine Ketones (Negative) mg/dL Urine Occult Blood (Negative) Urine Nitrate (Negative) Urine Bilirubin (Negative) Urine Urobilinogen (Less than 2) mg/dL Ur Leukocyte Esterase (Negative) Urine RBC (0-3) /hpf Urine WBC (0-5) /hpf Urine WBC Clumps (None) Ur Squamous Epith Cells (0-5) /hpf Urine Bacteria (None) /hpf Hyaline Casts (0-3) /lpf Urine Mucus (Occasional) /lpf Micro UA Comment Urine Culture Comments 05/31/18 05/31/1805/31/18 Range/Units 12:25 13:44 14:14 WBC (4.0-11.0) th/mm3 RBC (4.50-5.90) mil/mm3 Hgb (13.0-17.0) gm/dL Hct (39.0-51.0) % MCV (80.0-100.0) fL MCH (27.0-34.0) pg MCHC (32.0-36.0) % RDW (11.6-17.2) % Plt Count (150-450) th/mm3 MPV (7.0-11.0) fL Neut % (Auto) (16.0-70.0) % Lymph % (Auto) (9.0-44.0) % [place] % (Auto) (0.0-8.0) % Eos % (Auto) (0.0-4.0) % Baso % (Auto) (0.0-2.0) % Neut # (Auto) (1.8-7.7) th/mm3 Lymph # (Auto) (1.0-4.8) th/mm3 [place] # (Auto) (0.0-0.9) th/mm3 Eos # (Auto) (0.0-0.4) th/mm3 Baso # (Auto) (0.0-0.2) th/mm3 WBC Differential Differential Comment PT (9.8-11.6) sec INR Ratio Sodium (136-145) meq/L Potassium (3.5-5.1) meq/L Chloride (98-107) meq/L Carbon Dioxide (21.0-32.0) meq/L Anion Gap (5-15) meq/L BUN (7-18) mg/dL Creatinine (0.60-1.30) mg/dL Estimated GFR (>89) mL/min POC Glucose 299 H (68-110) mg/dl Random Glucose (74-106) mg/dL Hemoglobin A1c (4.3-6.0) % Calcium (8.5-10.1) mg/dL Phosphorus (2.5-4.9) mg/dL Magnesium (1.5-2.5) mg/dL Total Bilirubin (0.2-1.0) mg/dL AST (15-37) U/L ALT (12-78) U/L Alkaline Phosphatase (45-117) U/L Total Creatine Kinase (39-308) U/L Troponin I Cancelled (0.02-0.05) ng/mL Total Protein (6.4-8.2) g/dL Albumin (3.4-5.0) g/dL Triglycerides (42-150) mg/dL Cholesterol (120-200) mg/dL LDL Cholesterol, Calc (0-99) mg/dL HDL Cholesterol (40.0-60.0) mg/dL Cholesterol/HDL Ratio Ratio TSH (0.358-3.740) uIU/mL Free T4 (0.76-1.46) ng/dL Urine Color Yellow (Yellw/Straw) Urine Clarity Hazy H (Clear) Urine pH 5.0 (5.0-8.5) Ur Specific [place] 1.009 (1.002-1.035) Urine Protein Negative (Neg-Trace) mg/dL Urine Glucose (UA) 150 H (Negative) mg/dL Urine Ketones Negative (Negative) mg/dL Urine Occult Blood Small H (Negative) Urine Nitrate Negative (Negative) Urine Bilirubin Negative (Negative) Urine Urobilinogen Less than 2 (Less than 2) mg/dL Ur Leukocyte Esterase Large H (Negative) Urine RBC 3 (0-3) /hpf Urine WBC 37 H (0-5) /hpf Urine WBC Clumps Rare H (None) Ur Squamous Epith Cells <1 (0-5) /hpf Urine Bacteria Rare H (None) /hpf Hyaline Casts 4 (0-3) /lpf Urine Mucus Few H (Occasional) /lpf Micro UA Comment Culture indicated Urine Culture Comments Culture indicated 05/31/18 05/31/18 05/31/18 Range/Units 15:27 18:19 20:46 WBC (4.0-11.0) th/mm3 RBC (4.50-5.90) mil/mm3 Hgb (13.0-17.0) gm/dL Hct (39.0-51.0) % MCV (80.0-100.0) fL MCH (27.0-34.0) pg MCHC (32.0-36.0) % RDW (11.6-17.2) % Plt Count (150-450) th/mm3 MPV (7.0-11.0) fL Neut % (Auto) (16.0-70.0) % Lymph % (Auto) (9.0-44.0) % [place] % (Auto) (0.0-8.0) % Eos % (Auto) (0.0-4.0) % Baso % (Auto) (0.0-2.0) % Neut # (Auto) (1.8-7.7) th/mm3 Lymph # (Auto) (1.0-4.8) th/mm3 [place] # (Auto) (0.0-0.9) th/mm3 Eos # (Auto) (0.0-0.4) th/mm3 Baso # (Auto) (0.0-0.2) th/mm3 WBC Differential Differential Comment PT 12.1 H (9.8-11.6) sec INR 1.2 Ratio Sodium (136-145) meq/L Potassium (3.5-5.1) meq/L Chloride (98-107) meq/L Carbon Dioxide (21.0-32.0) meq/L Anion Gap (5-15) meq/L BUN (7-18) mg/dL Creatinine (0.60-1.30) mg/dL Estimated GFR (>89) mL/min POC Glucose 226 H (68-110) mg/dl Random Glucose (74-106) mg/dL Hemoglobin A1c (4.3-6.0) % Calcium (8.5-10.1) mg/dL Phosphorus (2.5-4.9) mg/dL Magnesium (1.5-2.5) mg/dL Total Bilirubin (0.2-1.0) mg/dL AST (15-37) U/L ALT (12-78) U/L Alkaline Phosphatase (45-117) U/L Total Creatine Kinase 120 (39-308) U/L Troponin I 0.07 H (0.02-0.05) ng/mL Total Protein (6.4-8.2) g/dL Albumin (3.4-5.0) g/dL Triglycerides (42-150) mg/dL Cholesterol (120-200) mg/dL LDL Cholesterol, Calc (0-99) mg/dL HDL Cholesterol (40.0-60.0) mg/dL Cholesterol/HDL Ratio Ratio TSH (0.358-3.740) uIU/mL Free T4 (0.76-1.46) ng/dL Urine Color (Yellw/Straw) Urine Clarity (Clear) Urine pH (5.0-8.5) Ur Specific [place] (1.002-1.035) Urine Protein (Neg-Trace) mg/dL Urine Glucose (UA) (Negative) mg/dL Urine Ketones (Negative) mg/dL Urine Occult Blood (Negative) Urine Nitrate (Negative) Urine Bilirubin (Negative) Urine Urobilinogen (Less than 2) mg/dL Ur Leukocyte Esterase (Negative) Urine RBC (0-3) /hpf Urine WBC (0-5) /hpf Urine WBC Clumps (None) Ur Squamous Epith Cells (0-5) /hpf Urine Bacteria (None) /hpf Hyaline Casts (0-3) /lpf Urine Mucus (Occasional) /lpf Micro UA Comment Urine Culture Comments 05/31/18 06/01/18 06/01/18 Range/Units 23:27 04:04 07:33 WBC 6.0 (4.0-11.0) th/mm3 RBC 3.55 L (4.50-5.90) mil/mm3 Hgb 11.8 L (13.0-17.0) gm/dL Hct 34.4 L (39.0-51.0) % MCV 96.8 (80.0-100.0) fL MCH 33.3 (27.0-34.0) pg MCHC 34.4 (32.0-36.0) % RDW 14.7 (11.6-17.2) % Plt Count 137 L (150-450) th/mm3 MPV 9.0 (7.0-11.0) fL Neut % (Auto) 76.8 H (16.0-70.0) % Lymph % (Auto) 10.0 (9.0-44.0) % [place] % (Auto) 12.6 H (0.0-8.0) % Eos % (Auto) 0.1 (0.0-4.0) % Baso % (Auto) 0.5 (0.0-2.0) % Neut # (Auto) 4.6 (1.8-7.7) th/mm3 Lymph # (Auto) 0.6 L (1.0-4.8) th/mm3 [place] # (Auto) 0.8 (0.0-0.9) th/mm3 Eos # (Auto) 0.0 (0.0-0.4) th/mm3 Baso # (Auto) 0.0 (0.0-0.2) th/mm3 WBC Differential . Differential Comment Auto diff final PT (9.8-11.6) sec INR Ratio Sodium 137 (136-145) meq/L Potassium 3.7 D (3.5-5.1) meq/L Chloride 102 (98-107) meq/L Carbon Dioxide 28.0 (21.0-32.0) meq/L Anion Gap 7 (5-15) meq/L BUN 35 H (7-18) mg/dL Creatinine 2.11 H (0.60-1.30) mg/dL Estimated GFR 30 L (>89) mL/min POC Glucose 193 H (68-110) mg/dl Random Glucose 263 H (74-106) mg/dL Hemoglobin A1c (4.3-6.0) % Calcium 7.7 L (8.5-10.1) mg/dL Phosphorus 2.8 (2.5-4.9) mg/dL Magnesium 1.8 (1.5-2.5) mg/dL Total Bilirubin 0.5 (0.2-1.0) mg/dL AST 40 H (15-37) U/L ALT 37 (12-78) U/L Alkaline Phosphatase 111 (45-117) U/L Total Creatine Kinase 121 (39-308) U/L Troponin I 0.06 H (0.02-0.05) ng/mL Total Protein 6.4 (6.4-8.2) g/dL Albumin 2.6 L (3.4-5.0) g/dL Triglycerides (42-150) mg/dL Cholesterol (120-200) mg/dL LDL Cholesterol, Calc (0-99) mg/dL HDL Cholesterol (40.0-60.0) mg/dL Cholesterol/HDL Ratio Ratio TSH (0.358-3.740) uIU/mL Free T4 (0.76-1.46) ng/dL Urine Color (Yellw/Straw) Urine Clarity (Clear) Urine pH (5.0-8.5) Ur Specific [place] (1.002-1.035) Urine Protein (Neg-Trace) mg/dL Urine Glucose (UA) (Negative) mg/dL Urine Ketones (Negative) mg/dL Urine Occult Blood (Negative) Urine Nitrate (Negative) Urine Bilirubin (Negative) Urine Urobilinogen (Less than 2) mg/dL Ur Leukocyte Esterase (Negative) Urine RBC (0-3) /hpf Urine WBC (0-5) /hpf Urine WBC Clumps (None) Ur Squamous Epith Cells (0-5) /hpf Urine Bacteria (None) /hpf Hyaline Casts (0-3) /lpf Urine Mucus (Occasional) /lpf Micro UA Comment Urine Culture Comments 06/01/18 06/01/18 06/01/18 Range/Units 07:33 07:33 07:56 WBC (4.0-11.0) th/mm3 RBC (4.50-5.90) mil/mm3 Hgb (13.0-17.0) gm/dL Hct (39.0-51.0) % MCV (80.0-100.0) fL MCH (27.0-34.0) pg MCHC (32.0-36.0) % RDW (11.6-17.2) % Plt Count (150-450) th/mm3 MPV (7.0-11.0) fL Neut % (Auto) (16.0-70.0) % Lymph % (Auto) (9.0-44.0) % [place] % (Auto) (0.0-8.0) % Eos % (Auto) (0.0-4.0) % Baso % (Auto) (0.0-2.0) % Neut # (Auto) (1.8-7.7) th/mm3 Lymph # (Auto) (1.0-4.8) th/mm3 [place] # (Auto) (0.0-0.9) th/mm3 Eos # (Auto) (0.0-0.4) th/mm3 Baso # (Auto) (0.0-0.2) th/mm3 WBC Differential Differential Comment PT (9.8-11.6) sec INR Ratio Sodium (136-145) meq/L Potassium (3.5-5.1) meq/L Chloride (98-107) meq/L Carbon Dioxide (21.0-32.0) meq/L Anion Gap (5-15) meq/L BUN (7-18) mg/dL Creatinine (0.60-1.30) mg/dL Estimated GFR (>89) mL/min POC Glucose 168 H (68-110) mg/dl Random Glucose (74-106) mg/dL Hemoglobin A1c 9.0 H (4.3-6.0) % Calcium (8.5-10.1) mg/dL Phosphorus (2.5-4.9) mg/dL Magnesium (1.5-2.5) mg/dL Total Bilirubin (0.2-1.0) mg/dL AST (15-37) U/L ALT (12-78) U/L Alkaline Phosphatase (45-117) U/L Total Creatine Kinase (39-308) U/L Troponin I (0.02-0.05) ng/mL Total Protein (6.4-8.2) g/dL Albumin (3.4-5.0) g/dL Triglycerides 78 (42-150) mg/dL Cholesterol 64 L (120-200) mg/dL LDL Cholesterol, Calc 23 (0-99) mg/dL HDL Cholesterol 25.6 L (40.0-60.0) mg/dL Cholesterol/HDL Ratio 2.50 Ratio TSH 1.640 (0.358-3.740) uIU/mL Free T4 1.80 H (0.76-1.46) ng/dL Urine Color (Yellw/Straw) Urine Clarity (Clear) Urine pH (5.0-8.5) Ur Specific [place] (1.002-1.035) Urine Protein (Neg-Trace) mg/dL Urine Glucose (UA) (Negative) mg/dL Urine Ketones (Negative) mg/dL Urine Occult Blood (Negative) Urine Nitrate (Negative) Urine Bilirubin (Negative) Urine Urobilinogen (Less than 2) mg/dL Ur Leukocyte Esterase (Negative) Urine RBC (0-3) /hpf Urine WBC (0-5) /hpf Urine WBC Clumps (None) Ur Squamous Epith Cells (0-5) /hpf Urine Bacteria (None) /hpf Hyaline Casts (0-3) /lpf Urine Mucus (Occasional) /lpf Micro UA Comment Urine Culture Comments 06/01/18 06/01/18 06/01/18 Range/Units 12:00 14:15 17:46 WBC (4.0-11.0) th/mm3 RBC (4.50-5.90) mil/mm3 Hgb (13.0-17.0) gm/dL Hct (39.0-51.0) % MCV (80.0-100.0) fL MCH (27.0-34.0) pg MCHC (32.0-36.0) % RDW (11.6-17.2) % Plt Count (150-450) th/mm3 MPV (7.0-11.0) fL Neut % (Auto) (16.0-70.0) % Lymph % (Auto) (9.0-44.0) % [place] % (Auto) (0.0-8.0) % Eos % (Auto) (0.0-4.0) % Baso % (Auto) (0.0-2.0) % Neut # (Auto) (1.8-7.7) th/mm3 Lymph # (Auto) (1.0-4.8) th/mm3 [place] # (Auto) (0.0-0.9) th/mm3 Eos # (Auto) (0.0-0.4) th/mm3 Baso # (Auto) (0.0-0.2) th/mm3 WBC Differential Differential Comment PT (9.8-11.6) sec INR Ratio Sodium (136-145) meq/L Potassium (3.5-5.1) meq/L Chloride (98-107) meq/L Carbon Dioxide (21.0-32.0) meq/L Anion Gap (5-15) meq/L BUN (7-18) mg/dL Creatinine (0.60-1.30) mg/dL Estimated GFR (>89) mL/min POC Glucose 215 H 206 H 266 H (68-110) mg/dl Random Glucose (74-106) mg/dL Hemoglobin A1c (4.3-6.0) % Calcium (8.5-10.1) mg/dL Phosphorus (2.5-4.9) mg/dL Magnesium (1.5-2.5) mg/dL Total Bilirubin (0.2-1.0) mg/dL AST (15-37) U/L ALT (12-78) U/L Alkaline Phosphatase (45-117) U/L Total Creatine Kinase (39-308) U/L Troponin I (0.02-0.05) ng/mL Total Protein (6.4-8.2) g/dL Albumin (3.4-5.0) g/dL Triglycerides (42-150) mg/dL Cholesterol (120-200) mg/dL LDL Cholesterol, Calc (0-99) mg/dL HDL Cholesterol (40.0-60.0) mg/dL Cholesterol/HDL Ratio Ratio TSH (0.358-3.740) uIU/mL Free T4 (0.76-1.46) ng/dL Urine Color (Yellw/Straw) Urine Clarity (Clear) Urine pH (5.0-8.5) Ur Specific [place] (1.002-1.035) Urine Protein (Neg-Trace) mg/dL Urine Glucose (UA) (Negative) mg/dL Urine Ketones (Negative) mg/dL Urine Occult Blood (Negative) Urine Nitrate (Negative) Urine Bilirubin (Negative) Urine Urobilinogen (Less than 2) mg/dL Ur Leukocyte Esterase (Negative) Urine RBC (0-3) /hpf Urine WBC (0-5) /hpf Urine WBC Clumps (None) Ur Squamous Epith Cells (0-5) /hpf Urine Bacteria (None) /hpf Hyaline Casts (0-3) /lpf Urine Mucus (Occasional) /lpf Micro UA Comment Urine Culture Comments 06/01/18 06/02/18 06/02/18 Range/Units 20:20 05:01 07:42 WBC (4.0-11.0) th/mm3 RBC (4.50-5.90) mil/mm3 Hgb (13.0-17.0) gm/dL Hct (39.0-51.0) % MCV (80.0-100.0) fL MCH (27.0-34.0) pg MCHC (32.0-36.0) % RDW (11.6-17.2) % Plt Count (150-450) th/mm3 MPV (7.0-11.0) fL Neut % (Auto) (16.0-70.0) % Lymph % (Auto) (9.0-44.0) % [place] % (Auto) (0.0-8.0) % Eos % (Auto) (0.0-4.0) % Baso % (Auto) (0.0-2.0) % Neut # (Auto) (1.8-7.7) th/mm3 Lymph # (Auto) (1.0-4.8) th/mm3 [place] # (Auto) (0.0-0.9) th/mm3 Eos # (Auto) (0.0-0.4) th/mm3 Baso # (Auto) (0.0-0.2) th/mm3 WBC Differential Differential Comment PT (9.8-11.6) sec INR Ratio Sodium (136-145) meq/L Potassium (3.5-5.1) meq/L Chloride (98-107) meq/L Carbon Dioxide (21.0-32.0) meq/L Anion Gap (5-15) meq/L BUN (7-18) mg/dL Creatinine (0.60-1.30) mg/dL Estimated GFR (>89) mL/min POC Glucose 372 H 173 H 167 H (68-110) mg/dl Random Glucose (74-106) mg/dL Hemoglobin A1c (4.3-6.0) % Calcium (8.5-10.1) mg/dL Phosphorus (2.5-4.9) mg/dL Magnesium (1.5-2.5) mg/dL Total Bilirubin (0.2-1.0) mg/dL AST (15-37) U/L ALT (12-78) U/L Alkaline Phosphatase (45-117) U/L Total Creatine Kinase (39-308) U/L Troponin I (0.02-0.05) ng/mL Total Protein (6.4-8.2) g/dL Albumin (3.4-5.0) g/dL Triglycerides (42-150) mg/dL Cholesterol (120-200) mg/dL LDL Cholesterol, Calc (0-99) mg/dL HDL Cholesterol (40.0-60.0) mg/dL Cholesterol/HDL Ratio Ratio TSH (0.358-3.740) uIU/mL Free T4 (0.76-1.46) ng/dL Urine Color (Yellw/Straw) Urine Clarity (Clear) Urine pH (5.0-8.5) Ur Specific [place] (1.002-1.035) Urine Protein (Neg-Trace) mg/dL Urine Glucose (UA) (Negative) mg/dL Urine Ketones (Negative) mg/dL Urine Occult Blood (Negative) Urine Nitrate (Negative) Urine Bilirubin (Negative) Urine Urobilinogen (Less than 2) mg/dL Ur Leukocyte Esterase (Negative) Urine RBC (0-3) /hpf Urine WBC (0-5) /hpf Urine WBC Clumps (None) Ur Squamous Epith Cells (0-5) /hpf Urine Bacteria (None) /hpf Hyaline Casts (0-3) /lpf Urine Mucus (Occasional) /lpf Micro UA Comment Urine Culture Comments 06/02/18 06/02/18 Range/Units 12:18 12:22 WBC (4.0-11.0) th/mm3 RBC (4.50-5.90) mil/mm3 Hgb (13.0-17.0) gm/dL Hct (39.0-51.0) % MCV (80.0-100.0) fL MCH (27.0-34.0) pg MCHC (32.0-36.0) % RDW (11.6-17.2) % Plt Count (150-450) th/mm3 MPV (7.0-11.0) fL Neut % (Auto) (16.0-70.0) % Lymph % (Auto) (9.0-44.0) % [place] % (Auto) (0.0-8.0) % Eos % (Auto) (0.0-4.0) % Baso % (Auto) (0.0-2.0) % Neut # (Auto) (1.8-7.7) th/mm3 Lymph # (Auto) (1.0-4.8) th/mm3 [place] # (Auto) (0.0-0.9) th/mm3 Eos # (Auto) (0.0-0.4) th/mm3 Baso # (Auto) (0.0-0.2) th/mm3 WBC Differential Differential Comment PT (9.8-11.6) sec INR Ratio Sodium (136-145) meq/L Potassium (3.5-5.1) meq/L Chloride (98-107) meq/L Carbon Dioxide (21.0-32.0) meq/L Anion Gap (5-15) meq/L BUN (7-18) mg/dL Creatinine (0.60-1.30) mg/dL Estimated GFR (>89) mL/min POC Glucose 493 H* 465 H* (68-110) mg/dl Random Glucose (74-106) mg/dL Hemoglobin A1c (4.3-6.0) % Calcium (8.5-10.1) mg/dL Phosphorus (2.5-4.9) mg/dL Magnesium (1.5-2.5) mg/dL Total Bilirubin (0.2-1.0) mg/dL AST (15-37) U/L ALT (12-78) U/L Alkaline Phosphatase (45-117) U/L Total Creatine Kinase (39-308) U/L Troponin I (0.02-0.05) ng/mL Total Protein (6.4-8.2) g/dL Albumin (3.4-5.0) g/dL Triglycerides (42-150) mg/dL Cholesterol (120-200) mg/dL LDL Cholesterol, Calc (0-99) mg/dL HDL Cholesterol (40.0-60.0) mg/dL Cholesterol/HDL Ratio Ratio TSH (0.358-3.740) uIU/mL Free T4 (0.76-1.46) ng/dL Urine Color (Yellw/Straw) Urine Clarity (Clear) Urine pH (5.0-8.5) Ur Specific [place] (1.002-1.035) Urine Protein (Neg-Trace) mg/dL Urine Glucose (UA) (Negative) mg/dL Urine Ketones (Negative) mg/dL Urine Occult Blood (Negative) Urine Nitrate (Negative) Urine Bilirubin (Negative) Urine Urobilinogen (Less than 2) mg/dL Ur Leukocyte Esterase (Negative) Urine RBC (0-3) /hpf Urine WBC (0-5) /hpf Urine WBC Clumps (None) Ur Squamous Epith Cells (0-5) /hpf Urine Bacteria (None) /hpf Hyaline Casts (0-3) /lpf Urine Mucus (Occasional) /lpf Micro UA Comment Urine Culture Comments Imaging Data Radiologist's impression: Carotid Doppler Study 05/31/18 00:00 CONCLUSION: Extensive bilateral carotid plaque formation especially around the bifurcations. Elevated PSV ratio on the right. Cannot exclude a significant stenosis. This would be better evaluated with CTA. Chest X-Ray 05/31/18 12:14 CONCLUSION: 1. Bilateral pleural effusions greater on the left. 2. Left basilar density 3. CT chest may be warranted. Head CT 05/31/18 12:14 CONCLUSION: 1. Cerebral atrophy without acute intracranial abnormality. 2. No acute hemorrhage . Chest CT 05/31/18 13:20 CONCLUSION: 1. Bilateral pleural effusions, greater on the right. 2. Parenchymal density right upper lobe could be infectious or inflammatory. 3. Status post CABG. Neck MRA 06/01/18 00:00 CONCLUSION: 1. Bilateral 50% stenoses involving the ICA origins. Vertebral arteries are patent. 2. Suspected right pleural effusion. _ Percent stenosis is calculated using the diameter of the stenotic region over the diameter of the normal distal internal carotid artery _ Discharge Plan Discharge Disposition Patient Disposition: 30 Still Patient Discharge Condition Condition: Stable Discharge Order Discharge Orders: Discharge Order (Routine); Ordered 06/02/18 Ordered By: Luana Silverman Discharge Details Anticipated Discharge Date: 06/02/18 Diagnosis: Syncope, Elevated troponin, Acute kidney injury superimposed on chronic kidney disease, Pleural effusion Physicians Team ED Provider: Luisana Woo ED Midlevel Provider: Sheri Walter Primary Care Provider: Angelito Tapia Attending Provider: Luana Silverman Other Providers: David Leos,Savita Status ED Status: Left Department Discharge Information Discharge Date/Time: 05/31/18 19:50
[2018-05-31 12:49] LABS: Baso % (Auto) 0.4 % (0.0-2.0); Hematocrit 35.8 % (39.0-51.0); Hemoglobin 12.2 gm/dL (13.0-17.0); Lymph # (Auto) 0.6 th/mm3 (1.0-4.8); Lymph % (Auto) 8.3 % (9.0-44.0); Mean Corpuscular Hemoglobin 33.1 pg (27.0-34.0); Mean Corpuscular Volume 97.5 fL (80.0-100.0); Mean Platelet Volume 9.3 fL (7.0-11.0); Mono # (Auto) 0.8 th/mm3 (0.0-0.9); Mono % (Auto) 11.1 % (0.0-8.0); Neut # (Auto) 6.1 th/mm3 (1.8-7.7); Neut % (Auto) 80.2 % (16.0-70.0); Platelet Count 158 th/mm3 (150-450); Red Blood Count 3.67 mil/mm3 (4.50-5.90); Red Cell Distribution Width 14.7 % (11.6-17.2); White Blood Count 7.6 th/mm3 (4.0-11.0)
--- NOTE | 2018-05-31 13:13 | XR ---
EXAM DATE: 05/31/2018 1:08 PM EDT AGE/SEX: 88 years / Male INDICATIONS: . Shortness of breath after fall today. CLINICAL DATA: This is the patient's initial encounter. Patient reports that signs and symptoms have been present for 1 day and indicates a pain score of 0/10. MEDICAL/SURGICAL HISTORY: Chronic obstructive pulmonary disease. Hypertension. Peripheral vascu lar . CABG. Coronary artery stent. COMPARISON: POI, XR CHEST PA AND LAT, 03/10/2018. . FINDINGS: PA and lateral views of the chest demonstrate small moderate left-sided pleural effusion and small ri ght pleural effusion. Bibasilar densities greater left lower lobe. Status post CABG. The cardiomedias tinal contours are unremarkable. Osseous structures are intact. CONCLUSION: 1. Bilateral pleural effusions greater on the left. 2. Left basilar density 3. CT chest may be warranted. Electronically signed by: Gucci Shields MD 05/31/2018 1:11 PM EDT
[2018-05-31 13:18] LABS: Albumin 2.7 g/dL (3.4-5.0); Anion Gap 6 meq/L (5-15); Aspartate Aminotransferase 39 U/L (15-37); Blood Urea Nitrogen 36 mg/dL (7-18); Calcium 7.9 mg/dL (8.5-10.1); Carbon Dioxide 28.8 meq/L (21.0-32.0); Chloride 100 meq/L (98-107); Glomerular Filtration Rate 29 mL/min (>89); Glucose,Random 332 mg/dL (74-106); Potassium 4.5 meq/L (3.5-5.1); Sodium 135 meq/L (136-145)
[2018-05-31 13:23] LABS: Alanine Aminotransferase 38 U/L (12-78); Alkaline Phosphatase 123 U/L (45-117); Total Protein 6.6 g/dL (6.4-8.2); Troponin I 0.06 ng/mL (0.02-0.05)
--- NOTE | 2018-05-31 14:13 | CT ---
EXAM DATE: 05/31/2018 2:01 PM EDT AGE/SEX: 88 years / Male INDICATIONS: Syncope episode , fell and hit head. CLINICAL DATA: This is the patient's initial encounter. Patient reports that signs and symptoms have been present for 1 day and indicates a pain score of 2/10. MEDICAL/SURGICAL HISTORY: Cardiovascular disease. Hypertension. Diabetes. . cardiac surgery RADIATION DOSE: 56.35 CTDI (mGy) COMPARISON: No prior exams available for comparison. TECHNIQUE: CT of the head without contrast. Using automated exposure control and adjustment of the mA and/or kV according to patient size, radiation dose was kept as low as reasonably achievable to ob tain optimal diagnostic quality images. DICOM format image data is available electronically for revi ew and comparison. FINDINGS: Cerebrum: The ventricles are normal for age. No evidence of midline shift, mass lesion, hemorrhage or acute infarction. No extraaxial fluid collections are seen. Posterior Fossa: The cerebellum and brainstem are intact. The 4th ventricle is midline. The cerebe llopontine angle is unremarkable. Extracranial: The visualized portion of the orbits is intact. Skull: The calvaria is intact. No evidence of skull fracture. CONCLUSION: 1. Cerebral atrophy without acute intracranial abnormality. 2. No acute hemorrhage . Electronically signed by: Gucci Shields MD 05/31/2018 2:12 PM EDT
[2018-05-31 14:14] LABS: Bacteria,Urine Rare /hpf; Bilirubin,Urine Negative (Negative); Clarity,Urine Hazy (Clear); Color,Urine Yellow (Yellw/Straw); Glucose,Urine (UA) 150 mg/dL (Negative); Hyaline Casts,Urine 4 /lpf (0-3); Leukocyte Esterase,Urine Large (Negative); Mucus,Urine Few /lpf (Occasional); Nitrite,Urine Negative (Negative); Specific Gravity,Urine 1.009 (1.002-1.035); Squamous Epithelial Cell,Urine <1 /hpf (0-5)
--- NOTE | 2018-05-31 14:16 | CT ---
EXAM DATE: 05/31/2018 2:06 PM EDT AGE/SEX: 88 years / Male INDICATIONS: Pleural effusion. CLINICAL DATA: This is the patient's initial encounter. Patient reports that signs and symptoms have been present for 1 day and indicates a pain score of 2/10. MEDICAL/SURGICAL HISTORY: Cardiovascular disease. Hypertension. Diabetes. . cardiac surgery RADIATION DOSE: 10.10 CTDI (mGy) COMPARISON: POI, CTA PULMONARY ANGIOGRAM, 01/01/2017. . TECHNIQUE: Multiple contiguous axial images were obtained through the chest without contrast. Image s were obtained in suspended respiration using multiple row detector helical technique. Using automa annabella exposure control and adjustment of the mA and/or kV according to patient size, radiation dose was kept as low as reasonably achievable to obtain optimal diagnostic quality images. DICOM format imag e data is available electronically for review and comparison. FINDINGS: Lungs: Minimal parenchymal density within the right upper lobe. Bibasilar densities likely atelectas is.. Mediastinum: There is good visualization of the great vessels of the middle mediastinum. No evidenc e of mediastinal or hilar adenopathy/mass. Coronary artery calcifications. Status post CABG. Pleurae: Small bilateral pleural effusions greater on the right. There is fluid in the fissures. Axillae: Unremarkable. Bony Structures: Unremarkable. Miscellaneous: The examination was extended to include the upper abdomen, and both adrenal glands ar e normal in size and configuration. CONCLUSION: 1. Bilateral pleural effusions, greater on the right. 2. Parenchymal density right upper lobe could be infectious or inflammatory. 3. Status post CABG. Electronically signed by: Gucci Shields MD 05/31/2018 2:15 PM EDT
[2018-05-31] MEDS ORDERED: Temazepam 15 MG Capsule PO PRN (15:19)
[2018-05-31] MEDS ORDERED: Acetaminophen 325 MG Tablet PO PRN (15:19)
[2018-05-31] MEDS ORDERED: Bisacodyl 10 MG Supp RECTAL PRN (15:19)
--- NOTE | 2018-05-31 15:34 | P.HPIM ---
History of Present Illness Service: [facility] Primary Care Physician: Angelito Tapia [facility] [place] [facility] Chief Complaint: SYNCOPE History of Present Illness: Patient is a 88-year-old gentleman who was brought in with syncope today. He has a past medical history of coronary artery disease, CABG, COPD, atrial fibrillation, chronic anticoagulation, insulin-dependent diabetes mellitus, hypertension, patient was brought in by EMS for evaluation of syncope. Patient states he was walking from his car to the doctor's office at the [place] [facility] when he suddenly felt slightly lightheaded and fell. He denies any head trauma or loss of consciousness. He denies any preceding chest pain or shortness of breath prior to this. He states that over the past few days he has had a slight aching pain to his that is 2 out of 10 on a scale of 1-10. Has some shortness of breath that is common for him due to his chronic COPD and oxygen dependent at night. He states that when he woke up this morning his fasting blood sugar was much higher than it normally is. Today it was in the 300s he states it is normally in the 100s. She states he took some extra insulin. He took Lantus 17 units of NovoLog 3 units with breakfast at 9 AM. He also took his glipizide and ate some breakfast. He denies any fever, he denies any chills, he denies any nausea, he denies any vomiting, he denies any diarrhea, he denies any constipation, denies any black stool, denies any bloody stools, denies any cough and any cold symptoms, denies any abdominal pain he has no real concerns was found to have a urinary tract infection. Will start on Rocephin and also found to have positive troponins for which we will consult cardiology Dr. Leos's group since that is who is seen him before previously. Patient is on 1 of the novel anticoagulants now for his atrial fibrillation. Inpatient Certification: I certify that the inpatient services were ordered in accordance with Medicare regulations governing the order. This includes certification that hospital inpatient services are reasonable and necessary and in the case of services not specified as inpatient-only under 42 CFR 419.22(n), that they are appropriately provided as inpatient services in accordance to with the 2-midnight benchmark under 43 CFR 412.3(e) Estimated Total Length of Stay (Days): 3 Plans for Post Hospital Care: Not yet determined Review of Systems All other systems reviewed negative except as stated in HPI [facility] - History History Provided By: Patient - Medical History Medical History: Medical History (Last Updated 05/31/18 @ 12:07 by John Parrish) Afib CAD (coronary artery disease) HTN (hypertension) High cholesterol Type II diabetes mellitus - Surgical History Surgical History: Surgical History (Last Updated 05/31/18 @ 12:08 by John Parrish) H/O atrioventricular noah ablation H/O heart bypass surgery H/O knee surgery - Family History Family History: Family History (Last Updated 05/31/18 @ 15:29 by Shaan Fine DO) Other Family history of hypertension - Tobacco History Second Hand Smoke Exposure: No Tobacco Use In Past 30 Days: No Smoking Status: Former smoker - Alcohol History How Often Do You Have a Drink Containing Alcohol: Never - Substance Use History Substance History: No History of Abuse - Travel History History of Recent Travel: No Recent Travel in the [place] Within the Last 8 Weeks: No Recent Travel Out of the Country Within the Last 8 Weeks: No - Immunization History Tetanus Immunization: <5 Years Hx Influenza Vaccine This Season: Yes Medications and Allergies Active Medications: Active Medications Acetaminophen (Tylenol) 650 mg PO Q4H PRN PRN Reason: Temp > 100.4 Al Hydroxide/Mg Hydroxide (Milk Of Magnesia Liq) 30 ml PO Q12H PRN PRN Reason: Mild Constipation Bisacodyl (Dulcolax Supp) 10 mg RECTAL DAILY PRN PRN Reason: SEVERE CONSITIPATION Ceftriaxone Sodium 1,000 mg/ (Sodium Chloride) 100 mls @ 200 mls/hr IV.SIG ONCE ONE Stop: 05/31/18 15:33 Lactulose (Lactulose Liq) 30 ml PO DAILY PRN PRN Reason: SEVERE CONSITIPATION Ondansetron HCl (Zofran Inj) 4 mg IV.PUSH Q6H PRN PRN Reason: NAUSEA OR VOMITING Senna/Docusate Sodium (Awilda-Colace) 1 tab PO BID LEANNE Sennosides (Senokot) 17.2 mg PO Q12H PRN PRN Reason: Moderate Constipation Temazepam (Restoril) 15 mg PO HS PRN PRN Reason: INSOMNIA Allergies Allergy/AdvReac Type Severity Reaction Status Date / Time No Known Allergies Allergy Unknown Uncoded 01/18/18 18:57 Home Medications Medication Instructions Recorded Confirmed Type albuterol sulfate 2.5 mg INHALATION DAILY 05/31/18 05/31/18 History amiodarone 200 mg PO DAILY 05/31/18 05/31/18 History amiodarone 200 mg PO DAILY 05/31/18 05/31/18 History aspirin 81 mg PO QPM 05/31/18 05/31/18 History aspirin [Aspir-81] 81 mg PO DAILY 05/31/18 05/31/18 History atorvastatin 80 mg PO DAILY 05/31/18 05/31/18 History atorvastatin 80 mg PO QPM 05/31/18 05/31/18 History budesonide-formoterol [Symbicort] 2 puff INHALATION BID 05/31/18 05/31/18 History budesonide-formoterol [Symbicort] 2 puff INHALATION BID 05/31/18 05/31/18 History bumetanide 1 mg PO DAILY PRN 05/31/18 05/31/18 History bumetanide 1 mg PO DAILY PRN 05/31/18 05/31/18 History cholecalciferol (vitamin D3) 2,000 unit PO DAILY 05/31/18 05/31/18 History [Vitamin D3] cholecalciferol (vitamin D3) 2,000 unit PO DAILY 05/31/18 05/31/18 History [Vitamin D3] cyanocobalamin (vitamin B-12) 1,000 mcg PO DAILY 05/31/18 05/31/18 History [Vitamin B-12] cyanocobalamin (vitamin B-12) 1,000 mcg PO DAILY 05/31/18 05/31/18 History [Vitamin B-12] glipizide 10 mg PO DAILY 05/31/18 05/31/18 History insulin aspart U-100 [Novolog 1 sliding scale dose SUB-Q TIDAC 05/31/18 History U-100 Insulin aspart] insulin glargine [Lantus Solostar 28 unit SUB-Q DAILY 05/31/18 05/31/18 History U-100 Insulin] insulin glargine [Lantus U-100 28 unit SUB-Q DAILY 05/31/18 05/31/18 History Insulin] insulin regular human [Novolin R 2 unit SUB-Q TID 05/31/18 05/31/18 History Regular U-100 Insuln] isosorbide mononitrate 30 mg PO DAILY 05/31/18 05/31/18 History isosorbide mononitrate 30 mg PO DAILY 05/31/18 05/31/18 History levothyroxine 25 mcg PO DAILY 05/31/18 05/31/18 History levothyroxine 25 mcg PO DAILY 05/31/18 05/31/18 History liraglutide [Victoza 2-Geovanny] 0.6 mg SUB-Q DAILY 05/31/18 05/31/18 History liraglutide [Victoza 2-Geovanny] 0.6 mg SUB-Q DAILY 05/31/18 05/31/18 History afqzpxnn-zqt-JT-lycopen-lutein 1 tab PO DAILY 05/31/18 05/31/18 History [Centrum Silver Men] tuwuvmhd-jhw-IZ-lycopen-lutein 1 tab PO DAILY 05/31/18 05/31/18 History [Centrum Silver] saw palmetto fruit 450 mg PO BID 05/31/18 05/31/18 History tiotropium bromide [Spiriva with 1 cap INHALATION DAILY 05/31/18 05/31/18 History HandiHaler] tiotropium bromide [Spiriva with 1 cap INHALATION DAILY 05/31/18 05/31/18 History HandiHaler] valsartan 320 mg PO DAILY 05/31/18 05/31/18 History valsartan 320 mg PO QPM 05/31/18 05/31/18 History warfarin [Coumadin] 5 mg PO DAILY 05/31/18 05/31/18 History Exam Vital signs: Vital Signs 05/31/18 11:58 05/31/18 12:12 Temperature 99.3 F Pulse Rate 70 69 Respiratory Rate 18 Blood Pressure 124/57 L Pulse Oximetry 93 L Intake & Output 05/30/18 05/31/18 05/31/18 18:59 06:59 18:59 Intake Total 1000 / 1000 Balance 1000 / 1000 Weight 68.039 kg Intake: IV 1000 / 1000 NS Inj 1,000 ML @ Wide Open IV. 1000 / 1000 SIG BOLUS ONE Rx#:[id number] Narrative: GENERAL: Awake alert and oriented 3 he is talkative and cooperative SKIN: Warm and dry. Multiple bruises on bilateral lower extremities. With multiple wounds and healing HEAD: Atraumatic. Normocephalic. EYES: Pupils equal and round. No scleral icterus. No injection or drainage. Wears glasses ENT: No nasal bleeding or discharge. Mucous membranes pink and moist. Tongue is midline NECK: Trachea midline. No JVD. Supple CARDIOVASCULAR: IRRegular rate and rhythm. S1-S2 no S3 or S4 RESPIRATORY: No accessory muscle use. Clear to auscultation. Breath sounds equal bilaterally. GASTROINTESTINAL: Abdomen soft, non-tender, nondistended. Hepatic and splenic margins not palpable. MUSCULOSKELETAL: Extremities without clubbing, cyanosis, or edema. No obvious deformities. NEUROLOGICAL: Awake and alert. No obvious cranial nerve deficits. Motor grossly within normal limits. Five out of 5 muscle strength in the arms and legs. Normal speech. PSYCHIATRIC: Appropriate mood and affect; insight and judgment normal. Results - Labs CBC & Chem 7: 05/31/18 12:25 05/31/18 12:25 Labs: Short CBC 05/31/18 Range/Units 12:25 WBC 7.6 (4.0-11.0) th/mm3 Hgb 12.2 L (13.0-17.0) gm/dL Hct 35.8 L (39.0-51.0) % Plt Count 158 (150-450) th/mm3 BMP 05/31/18 12:25 Sodium 135 L Potassium 4.5 Chloride 100 Carbon Dioxide 28.8 BUN 36 H Creatinine 2.15 H Calcium 7.9 L Cardiac Enzymes 05/31/18 05/31/18 Range/Units 12:25 12:25 Troponin I 0.06 H Cancelled (0.02-0.05) ng/mL Liver Function 05/31/18 Range/Units 12:25 Total Bilirubin 0.8 (0.2-1.0) mg/dL AST 39 H (15-37) U/L ALT 38 (12-78) U/L Alkaline Phosphatase 123 H (45-117) U/L Albumin 2.7 L (3.4-5.0) g/dL Urine 05/31/18 Range/Units 13:44 Urine Color Yellow (Yellw/Straw) Urine Clarity Hazy H (Clear) Urine pH 5.0 (5.0-8.5) Ur Specific [place] 1.009 (1.002-1.035) Urine Protein Negative (Neg-Trace) mg/dL Urine Glucose (UA) 150 H (Negative) mg/dL - Imaging Impressions Chest X-Ray 05/31/18 12:14 CONCLUSION: 1. Bilateral pleural effusions greater on the left. 2. Left basilar density 3. CT chest may be warranted. Head CT 05/31/18 12:14 CONCLUSION: 1. Cerebral atrophy without acute intracranial abnormality. 2. No acute hemorrhage . Chest CT 05/31/18 13:20 CONCLUSION: 1. Bilateral pleural effusions, greater on the right. 2. Parenchymal density right upper lobe could be infectious or inflammatory. 3. Status post CABG. Caprini VTE Risk Assessment Caprini VTE Risk Assessment: Moderate/High Risk (score >= 2) Caprini Risk Assessment Model: Point Value = 1 Point Value = 2 Point Value = 3 Point Value = 5 Age 41-60 Minor surgery BMI > 25 kg/m2 Swollen legs Varicose veins or History of unexplained or recurrent spontaneous Oral contraceptives or hormone replacement Sepsis (< 1 month) Serious lung disease, including pneumonia (< 1 month) Abnormal pulmonary function Acute myocardial infarction Congestive heart failure (< 1 month) History of inflammatory bowel disease Medical patient at bed rest Age 61-74 Arthroscopic surgery Major open surgery (> 45 min) Laparoscopic surgery (> 45 min) Malignancy Confined to bed (> 72 hours) Immobilizing plaster cast Central venous access Age >= 75 History of VTE Family history of VTE Factor V Leiden Prothrombin [id number] Lupus anticoagulant Anticardiolipin antibodies Elevated serum homocysteine Heparin-induced thrombocytopenia Other congenital or acquired thrombophilia Stroke (< 1 month) Elective arthroplasty Hip, pelvis, or leg fracture Acute spinal cord injury (< 1 month) Prophylaxis Regimen: Total Risk Factor Score Risk Level Prophylaxis Regimen 0-1 Low Early ambulation 2 Moderate Order ONE of the following: *Sequential Compression Device (SCD) *Heparin 5000 units SQ BID 3-4 Higher Order ONE of the following medications: *Heparin 5000 units SQ TID *Enoxaparin/Lovenox 40 mg SQ daily (WT < 150 kg, CrCl > 30 mL/min) *Enoxaparin/Lovenox 30 mg SQ daily (WT < 150 kg, CrCl > 10-29 mL/min) *Enoxaparin/Lovenox 30 mg SQ BID (WT < 150 kg, CrCl > 30 mL/min) AND/OR *Sequential Compression Device (SCD) 5 or more Highest Order ONE of the following medications: *Heparin 5000 units SQ TID (Preferred with Epidurals) *Enoxaparin/Lovenox 40 mg SQ daily (WT < 150 kg, CrCl > 30 mL/min) *Enoxaparin/Lovenox 30 mg SQ daily (WT < 150 kg, CrCl > 10-29 mL/min) *Enoxaparin/Lovenox 30 mg SQ BID (WT < 150 kg, CrCl > 30 mL/min) AND *Sequential Compression Device (SCD) Assessment and Plan - Plan Syncopal episode we will consult cardiology and get carotid Dopplers Hyperglycemia/diabetes continue on sliding scale coverage with Accu-Cheks before meals and at bedtime Chronic atrial fibrillation on chronic anticoagulant we will try to obtain his home medication so he can be continued on--continue on his amiodarone Hypertension by history monitor this hyperlipidemia Continue on his statin History of AV noah ablation will consult cardiology-- Positive troponins consult cardiology and trend troponins with the CK-MBs Has history of coronary artery disease and history of congestive heart failure monitor labs-continue on his Reynolds Positive urinary tract infection will continue on Rocephin With physical therapy and occupational therapy to eval and treat Renal insufficiency we will monitor labs has been given some fluids by the ER already Chest CT shows a right pleural effusion greater than left COPD on chronic oxygen at bedtime and night Hypothyroidism continue on his levothyroxine will check a TSH and free T4 Continue DVT and GI prophylaxis Code Status: Full code Discussed Condition With: RN and patient and emergency room Discharge Planning: Pending clearance by cardiology
[2018-05-31] MEDS ORDERED: Dextrose 50% in Water 50 ML Vial IV.PUSH PRN (15:35)
[2018-05-31 16:03] LABS: INR 1.2 Ratio; Prothrombin Time 12.1 sec (9.8-11.6)
--- NOTE | 2018-05-31 17:41 | US ---
EXAM DATE: 05/31/2018 5:30 PM EDT AGE/SEX: 88 years / Male INDICATIONS: Syncope. CLINICAL DATA: This is the patient's initial encounter. Patient reports that signs and symptoms have been present for 1 day and indicates a pain score of 0/10. MEDICAL/SURGICAL HISTORY: Cardiovascular disease. Hypertension. Diabetes. Atrial fibrillatio n. High cholesterol. . Cardiac surgery. COMPARISON: No prior exams available for comparison. VELOCITY PARAMETERS: ICA/CCA Ratio: Right 1.9 , Left 0.8 ICA: Right 138.1 cm/sec, Left 90.0 cm/sec CCA: Right 71.9 cm/sec, Left 115.7 cm/sec ECA: Right 226.6 cm/sec, Left 92.1 cm/sec Vertebral: Right 36.6 cm/sec antegrade, Left 43.4 cm/sec antegrade FINDINGS: The PSV ratio on the right side is elevated to 1.9 with moderate to extensive atherosclerotic plaque present especially around the carotid bifurcation. Cannot exclude a hemodynamically significant steno sis. This would be better evaluated with CTA. There is moderate plaque on the left side without evidence for hemodynamically significant stenosis. Vertebral artery flow antegrade bilaterally. CONCLUSION: Extensive bilateral carotid plaque formation especially around the bifurcations. Elevated PSV ratio o n the right. Cannot exclude a significant stenosis. This would be better evaluated with CTA. Electronically signed by: Ryan Frazier MD 05/31/2018 5:39 PM EDT
[2018-05-31 19:08] LABS: Troponin I 0.07 ng/mL (0.02-0.05)
[2018-05-31] MEDS ORDERED: SAW PALMETTO FRUIT 450 MG PO SCH (21:00)
[2018-05-31] MEDS: Insulin NovoLOG Aspart Correctional Sugar Inj SQ SCH ×2 (21:43→21:55)
[2018-05-31] MEDS: Senna/Docusate Sodium 8.6/50 MG Tablet PO SCH (21:48)
[2018-05-31] MEDS: guaiFENesin 600 MG ER Tablet PO SCH (21:48)
[2018-05-31] MEDS: Famotidine 20 MG Tablet PO SCH (21:49)
[2018-05-31] MEDS: Budesonide-Formoterol 160/4.5 MCG 6 GM Inhaler INH SCH (23:45)
[2018-05-31 23:55] LABS: Alanine Aminotransferase 37 U/L (12-78); Albumin 2.6 g/dL (3.4-5.0); Anion Gap 7 meq/L (5-15); Aspartate Aminotransferase 40 U/L (15-37); Blood Urea Nitrogen 35 mg/dL (7-18); Calcium 7.7 mg/dL (8.5-10.1); Chloride 102 meq/L (98-107); Glomerular Filtration Rate 30 mL/min (>89); Glucose,Random 263 mg/dL (74-106); Magnesium 1.8 mg/dL (1.5-2.5); Phosphorus 2.8 mg/dL (2.5-4.9); Potassium 3.7 meq/L (3.5-5.1); Sodium 137 meq/L (136-145)
[2018-05-31 23:59] LABS: Alkaline Phosphatase 111 U/L (45-117); Creatine Kinase 121 U/L (39-308); Total Protein 6.4 g/dL (6.4-8.2); Troponin I 0.06 ng/mL (0.02-0.05)
--- NOTE | 2018-06-01 00:46 | MB ---
cc: David Leos DO DATE: 05/31/2018 REASON FOR CONSULTATION: Syncope, elevated troponin. HISTORY OF PRESENT ILLNESS: Collins Leone is a pleasant 88-year-old male, whom I see in the office, who presented to [facility] Emergency Room via EMS for a syncopal episode. He had a normal morning other than he noted his blood sugars were slightly higher than normal. He was going to the [facility] for a doctor visit. When he was walking towards the door, he suddenly got lightheaded and fell over. He states that he did not feel that the room was spinning. He just felt lightheaded and was unable to control exactly where he was walking. He denies any chest pain, shortness of breath or palpitations before, during, or after the event. He states that he did not lose consciousness, although his said that he was unresponsive and his eyes were rolled back into his head. He came to and there was no postictal phase. There was no shaking while on the ground or loss of bowel or bladder. In seeing him, he is currently hemodynamically stable without chest pain or shortness of breath. PAST MEDICAL HISTORY: 1. Atrial fibrillation. 2. Coronary artery disease. 3. Hypertension. 4. Hyperlipidemia. 5. Type 2 diabetes mellitus. PAST SURGICAL HISTORY: 1. Cardiac catheterization (09/30/2017): Left main normal size. LAD 30% throughout the proximal portion and 100% occluded in the mid portion. Left circumflex 100% occluded in the proximal portion. RCA diffuse 50% disease with multiple lesions throughout the distal portion of 70% and 90% in the PDA. Collaterals from the left coronary artery system supply to the distal PDA and posterolateral branch. THAPA to diagonal was known to be atretic before with no flow. SVG to LAD is patent and fills antegrade and retrograde into a diagonal, as well as collaterals to the posterolateral branch and PDA of the right. There is a previous bypass that comes off this to the posterolateral branch and PDA, which is occluded. SVG to obtuse marginal no significant disease. He was recommended medical therapy. 2. Atrial fibrillation ablation (10/21/2015). 3. Previous CABG x5. 4. History of knee surgery. ALLERGIES: NO KNOWN DRUG ALLERGIES. MEDICATIONS: 1. Spiriva 18 mcg daily. 2. Albuterol. 3. Eliquis 2.5 mg b.i.d. 4. Multivitamin daily. 5. Aspirin 81 mg daily. 6. Valsartan 320 mg every night. 7. Lipitor 80 mg every night. 8. Isosorbide mononitrate 30 mg daily. 9. Amiodarone 200 mg daily. 10. Victoza 0.6 mg daily. 11. Lantus 28 units daily. 12. Novolin 2 units t.i.d. 13. Symbicort 2 puffs b.i.d. 14. Glipizide 10 mg daily. 15. Synthroid 25 mcg daily. 16. Bumex 1 mg daily. FAMILY HISTORY: Denies sudden cardiac within the family. SOCIAL HISTORY: Former smoker. Denies alcohol or drug abuse. REVIEW OF SYSTEMS: Fourteen systems were reviewed including osteopathic. Pertinent positives and negatives above, otherwise negative. PHYSICAL EXAMINATION: VITAL SIGNS: Temperature 98.9, heart rate 70, blood pressure 121/76, respirations 16, pulse oximetry 98% on room air. GENERAL: The patient appears well, in no acute distress. Alert, awake and oriented x3. HEAD: Has minor abrasions across the upper portion where he fell. Extraocular muscles intact. Mucous membranes moist. NECK: Supple. No JVD at 45 degrees. No carotid bruits heard bilaterally. Carotid upstroke is brisk in nature. HEART: Regular rate and rhythm. Positive first and second heart sounds with no noted murmurs, gallops or rubs. LUNGS: Clear to auscultation bilaterally. No wheezes, rales or rhonchi. ABDOMEN: Soft, nontender, nondistended. No organomegaly noted. EXTREMITIES: Show no clubbing, cyanosis or edema. Femoral and distal pulses are intact bilaterally. NEUROLOGIC: No focal deficits. SKIN: Warm, dry and intact. OSTEOPATHIC: No kyphoscoliosis, lordosis or paraspinal tender points. LABORATORY DATA: Hemoglobin 12.2, hematocrit 35.8, platelets 158. Potassium 4.5, BUN 36, creatinine 2.15, troponin 0.07. Electrocardiogram (05/31/2018 at 18:29): Sinus rhythm with nonspecific ST-T wave changes. IMPRESSION: 1. Syncopal episode with a history of a similar-type episode 1 year ago. 2. Minimally elevated troponin, nonspecific in nature. 3. Coronary artery disease with a history of coronary artery bypass graft, as above. 4. Previous ejection fraction of 50%-55% by echocardiogram. 5. Diabetes mellitus. 6. Acute kidney injury on chronic kidney disease. 7. Atrial fibrillation, on Eliquis outpatient. 8. Hypertension. RECOMMENDATIONS: 1. Mr. Leone presented with a true syncopal episode. Although he felt that he did not lose consciousness, his states that he was unresponsive at the time. 2. He had a similar type episode in 2017 and no cause was found. 3. Due to this, as I believe both episodes were true syncopal episodes, I feel that he should have a loop recorder placed to determine if these are arrhythmogenic in nature. 4. He does have a minimally elevated troponin, although I find this nonspecific with his current kidney disease. He had no chest pain throughout the event and previous cardiac catheterization does show disease, but was recommended medical management. 5. We will update his echo to evaluate his overall left ventricular function, cardiac structure and possible valvulopathies. 6. His Eliquis will be held with a plan to restart after a loop recorder placement. 7. Due to the recall of valsartan, we will change his medication to losartan. 8. Further recommendations will be made based on the hospital course. Thank you for allowing me to see Collins Leone. If there are any questions, please do not hesitate to call. DO ROBI Epps/nora , 12:04 AM , 12:20 AM
[2018-06-01] MEDS: Insulin NovoLOG Aspart Correctional Sugar Inj SQ SCH ×3 (03:00→21:31)
[2018-06-01] MEDS: Isosorbide Mononitrate 30 MG ER 24HR Tablet (Imdur) PO SCH (06:55)
[2018-06-01 08:01] LABS: Baso % (Auto) 0.5 % (0.0-2.0); Eos % (Auto) 0.1 % (0.0-4.0); Hematocrit 34.4 % (39.0-51.0); Hemoglobin 11.8 gm/dL (13.0-17.0); Lymph # (Auto) 0.6 th/mm3 (1.0-4.8); Mean Corpuscular HGB Conc 34.4 % (32.0-36.0); Mean Corpuscular Hemoglobin 33.3 pg (27.0-34.0); Mean Corpuscular Volume 96.8 fL (80.0-100.0); Mono # (Auto) 0.8 th/mm3 (0.0-0.9); Mono % (Auto) 12.6 % (0.0-8.0); Neut # (Auto) 4.6 th/mm3 (1.8-7.7); Neut % (Auto) 76.8 % (16.0-70.0); Platelet Count 137 th/mm3 (150-450); Red Blood Count 3.55 mil/mm3 (4.50-5.90); Red Cell Distribution Width 14.7 % (11.6-17.2)
[2018-06-01 08:25] LABS: Chol/HDL Ratio 2.5 Ratio; Free T4 (Free Thyroxine) 1.8 ng/dL (0.76-1.46); HDL Cholesterol 25.6 mg/dL (40.0-60.0); Thyroid Stimulating Hormone 1.64 uIU/mL (0.358-3.740)
[2018-06-01] MEDS ORDERED: Tiotropium Bromide 18 MCG/ACT Inhaler INH SCH (09:00)
[2018-06-01] MEDS ORDERED: Amiodarone 200 MG Tablet PO SCH (09:00)
[2018-06-01] MEDS: guaiFENesin 600 MG ER Tablet PO SCH ×2 (10:17→21:31)
[2018-06-01] MEDS: Senna/Docusate Sodium 8.6/50 MG Tablet PO SCH ×2 (10:18→21:31)
[2018-06-01] MEDS: Multivitamin/Minerals Therapeutic Tablet PO SCH (10:18)
[2018-06-01] MEDS: Famotidine 20 MG Tablet PO SCH ×2 (10:18→21:31)
[2018-06-01] MEDS: Insulin Detemir Inj 1,000 UNIT/10 ML Vial SQ SCH (10:19)
[2018-06-01] MEDS ORDERED: fentaNYL Citrate Inj 100 MCG/2 ML Ampul ONE (12:57)
[2018-06-01] MEDS ORDERED: Mupirocin 2% Nasal Oint Topical Syringe EACH NARE SCH (13:30)
[2018-06-01] MEDS ORDERED: Chlorhexidine Gluconate 2% 1 Pack (2 Cloths) TOPICAL SCH (13:30)
[2018-06-01] MEDS ORDERED: ceFAZolin 2 GM IV; once IV.SIG ONE (13:30)
--- NOTE | 2018-06-01 14:23 | ECHRPT ---
Indication: HYPERTENSIVE HEART DISEASE CONCLUSIONS Normal left ventricular size. Mild concentric left ventricular hypertrophy. The left ventricular systolic function is normal with an ejection fraction of 60-65%. Trace mitral valve regurgitation. Aortic valve sclerosis is present. There is trace tricuspid valve regurgitation. The estimated pulmonary arterial pressure is 68.7 mmHg. There is estimated oqotyncr-pu-joclxn pulmonary hypertension present (range 60-70 mmHg). BP: / HR: Rhythm: Sinus MEASUREMENTS (Male / Female) Normal Values Technical Quality:Fair 2D ECHO LV Diastolic Diameter PLAX 5.1 cm 4.2 - 5.9 / 3.9 - 5.3 cm LV Systolic Diameter PLAX 3.8 cm IVS Diastolic Thickness 1.1 cm 0.6 - 1.0 / 0.6 - 0.9 cm LVPW Diastolic Thickness 1.1 cm 0.6 - 1.0 / 0.6 - 0.9 cm LV Relative Wall Thickness 0.4 RV Internal Dim ED PLAX 2.9 cm LVOT Diameter 2.1 cm Aortic Root Diameter 2.9 cm LA Systolic Diameter LX 3.9 cm 3.0 - 4.0 / 2.7 - 3.8 cm M-MODE AV Cusp Separation MM 1.6 cm DOPPLER AV Peak Velocity 114.0 cm/s AV Peak Gradient 5.2 mmHg AV Mean Gradient 4.0 mmHg AV Velocity Time Integral 22.9 cm LVOT Peak Velocity 61.7 cm/s LVOT Peak Gradient 1.5 mmHg LVOT Velocity Time Integral 10.3 cm AV Area Cont Eq vti 1.6 cm AV Area Cont Eq pk 1.9 cm Mitral E Point Velocity 76.5 cm/s Mitral A Point Velocity 30.1 cm/s Mitral E to A Ratio 2.5 LV E' Lateral Velocity 7.5 cm/s Mitral E to LV E' Lateral Ratio 10.2 LV E' Septal Velocity 4.4 cm/s Mitral E to LV E' Septal Ratio 17.4 TR Peak Velocity 383.0 cm/s TR Peak Gradient 58.7 mmHg Right Atrial Pressure 10.0 mmHg Pulmonary Artery Systolic Pressu 68.7 mmHg Right Ventricular Systolic Press 68.7 mmHg PV Peak Velocity 45.9 cm/s PV Peak Gradient 0.8 mmHg FINDINGS LEFT VENTRICLE Normal left ventricular size. Mild concentric left ventricular hypertrophy. The left ventricular systolic function is normal with an estimated ejection fraction in the range of 60-65%. RIGHT VENTRICLE Normal right ventricular size and systolic function. LEFT ATRIUM The left atrial size is normal. RIGHT ATRIUM The right atrial size is normal. ATRIAL SEPTUM No atrial level shunt is demonstrated by color flow Doppler interrogation. AORTA The aortic root and proximal ascending aorta are normal in size on limited imaging. MITRAL VALVE Trace mitral valve regurgitation. AORTIC VALVE Aortic valve sclerosis is present. TRICUSPID VALVE There is trace tricuspid valve regurgitation. The estimated pulmonary arterial pressure is 68.7 mmHg. There is estimated giieijwp-dp-atiocx pulmonary hypertension present (range 60-70 mmHg). PULMONARY VALVE No pulmonary valve regurgitation or stenosis. VESSELS The inferior vena cava is normal in size. PERICARDIUM No pericardial effusion. Mohsen Núñez MD, FACC, FSCAI (Electronically Signed) Final Date:01 June 2018 14:23
--- NOTE | 2018-06-01 14:55 | P.PN ---
Subjective Interval history: awake and alert no complains seen with at bedsdie recurrent episode of synocpe- unrelated to pain or changes in position states happens when he ois walking Physical Exam Vital signs: Vital Signs 05/31/18 17:27 05/31/18 19:28 05/31/18 20:00 Temperature 98.9 F Pulse Rate 78 69 Respiratory Rate 16 20 Blood Pressure 121/76 119/68 Pulse Oximetry 98 92 L 92 L 05/31/18 21:24 06/01/18 00:00 06/01/18 04:00 Temperature 98.5 F 98.3 F Pulse Rate 70 67 95 H Respiratory Rate 16 20 20 Blood Pressure 140/74 127/68 Pulse Oximetry 96 98 95 06/01/18 08:00 06/01/18 08:52 Temperature 97.2 F L Pulse Rate 70 90 Respiratory Rate 16 16 Blood Pressure 128/60 Pulse Oximetry 98 96 Intake & Output 05/31/18 06/01/18 06/01/18 18:59 06:59 18:59 Intake Total 1000 / 1000 120 / 120 Output Total 450 / 450 Balance 1000 / 1000 -330 / -330 Weight 68.039 kg 70.3 kg Intake: IV 1000 / 1000 NS Inj 1,000 ML @ Wide Open IV. 1000 / 1000 SIG BOLUS ONE Rx#:[id number] Oral 120 / 120 Output: Urine 450 / 450 Other: Weight On Admission 69.5 kg Narrative: awake and alert, oriented c 3 speech clear anicteric no carotid bruit lungs- clear regular rhtyhm abdomen soft, nontendere xtrmeities no edema Results - Labs CBC & Chem 7: 06/01/18 07:33 05/31/18 23:27 Laboratory Results - last 24 hr 05/31/18 05/31/18 05/31/18 15:27 18:19 20:46 WBC RBC Hgb Hct MCV MCH MCHC RDW Plt Count MPV Neut % (Auto) Lymph % (Auto) Bee % (Auto) Eos % (Auto) Baso % (Auto) Neut # (Auto) Lymph # (Auto) Bee # (Auto) Eos # (Auto) Baso # (Auto) WBC Differential Differential Comment PT 12.1 H INR 1.2 Sodium Potassium Chloride Carbon Dioxide Anion Gap BUN Creatinine Estimated GFR POC Glucose 226 H Random Glucose Calcium Phosphorus Magnesium Total Bilirubin AST ALT Alkaline Phosphatase Total Creatine Kinase 120 Troponin I 0.07 H Total Protein Albumin Triglycerides Cholesterol LDL Cholesterol, Calc HDL Cholesterol Cholesterol/HDL Ratio TSH Free T4 05/31/18 06/01/18 06/01/18 23:27 04:04 07:33 WBC 6.0 RBC 3.55 L Hgb 11.8 L Hct 34.4 L MCV 96.8 MCH 33.3 MCHC 34.4 RDW 14.7 Plt Count 137 L MPV 9.0 Neut % (Auto) 76.8 H Lymph % (Auto) 10.0 Bee % (Auto) 12.6 H Eos % (Auto) 0.1 Baso % (Auto) 0.5 Neut # (Auto) 4.6 Lymph # (Auto) 0.6 L Bee # (Auto) 0.8 Eos # (Auto) 0.0 Baso # (Auto) 0.0 WBC Differential . Differential Comment Auto diff final PT INR Sodium 137 Potassium 3.7 D Chloride 102 Carbon Dioxide 28.0 Anion Gap 7 BUN 35 H Creatinine 2.11 H Estimated GFR 30 L POC Glucose 193 H Random Glucose 263 H Calcium 7.7 L Phosphorus 2.8 Magnesium 1.8 Total Bilirubin 0.5 AST 40 H ALT 37 Alkaline Phosphatase 111 Total Creatine Kinase 121 Troponin I 0.06 H Total Protein 6.4 Albumin 2.6 L Triglycerides Cholesterol LDL Cholesterol, Calc HDL Cholesterol Cholesterol/HDL Ratio TSH Free T4 06/01/18 06/01/18 06/01/18 07:33 07:56 12:00 WBC RBC Hgb Hct MCV MCH MCHC RDW Plt Count MPV Neut % (Auto) Lymph % (Auto) Bee % (Auto) Eos % (Auto) Baso % (Auto) Neut # (Auto) Lymph # (Auto) Bee # (Auto) Eos # (Auto) Baso # (Auto) WBC Differential Differential Comment PT INR Sodium Potassium Chloride Carbon Dioxide Anion Gap BUN Creatinine Estimated GFR POC Glucose 168 H 215 H Random Glucose Calcium Phosphorus Magnesium Total Bilirubin AST ALT Alkaline Phosphatase Total Creatine Kinase Troponin I Total Protein Albumin Triglycerides 78 Cholesterol 64 L LDL Cholesterol, Calc 23 HDL Cholesterol 25.6 L Cholesterol/HDL Ratio 2.50 TSH 1.640 Free T4 1.80 H 06/01/18 14:15 WBC RBC Hgb Hct MCV MCH MCHC RDW Plt Count MPV Neut % (Auto) Lymph % (Auto) Bee % (Auto) Eos % (Auto) Baso % (Auto) Neut # (Auto) Lymph # (Auto) Bee # (Auto) Eos # (Auto) Baso # (Auto) WBC Differential Differential Comment PT INR Sodium Potassium Chloride Carbon Dioxide Anion Gap BUN Creatinine Estimated GFR POC Glucose 206 H Random Glucose Calcium Phosphorus Magnesium Total Bilirubin AST ALT Alkaline Phosphatase Total Creatine Kinase Troponin I Total Protein Albumin Triglycerides Cholesterol LDL Cholesterol, Calc HDL Cholesterol Cholesterol/HDL Ratio TSH Free T4 Microbiology 05/31/18 13:44 Clean Catch Urine Urine Culture - Preliminary Immature growth - reincubate - Imaging Impressions Carotid Doppler Study 05/31/18 00:00 CONCLUSION: Extensive bilateral carotid plaque formation especially around the bifurcations. Elevated PSV ratio on the right. Cannot exclude a significant stenosis. This would be better evaluated with CTA. Assessment and Plan - Plan 88 years old male Recurrent Syncopal episode Chronic atrial fibrillation on chronic anticoagulant History of AV noah ablation history of coronary artery disease and history of congestive heart failure monitor labs-continue on his [facility] cardiology ff Hypertension by history seen by cardiology and loop recorder was placed CArotid stenosis on doppler - will get an MR of carotids without contrast - unable to do CTA with elevated creatinine Hyperglycemia/diabetes continue on sliding scale coverage with Accu-Cheks before meals and at bedtime hyperlipidemia Continue on his statin Positive urinary tract infection will continue on Rocephin With physical therapy and occupational therapy to eval and treat CKI stage 3 - ff up with Dr. Henderson as OP Chest CT shows a right pleural effusion greater than left - OP ff up - good sats COPD on chronic oxygen at bedtime and night Hypothyroidism continue on his levothyroxine will check a TSH and free T4 Continue DVT and GI prophylaxis
--- NOTE | 2018-06-01 15:48 | P.PNCA ---
Subjective Interval history: No events overnight S/p loop recorder Physical Exam Vital signs: Vital Signs 05/31/18 17:27 05/31/18 19:28 05/31/18 20:00 Temperature 98.9 F Pulse Rate 78 69 Respiratory Rate 16 20 Blood Pressure 121/76 119/68 Pulse Oximetry 98 92 L 92 L 05/31/18 21:24 06/01/18 00:00 06/01/18 04:00 Temperature 98.5 F 98.3 F Pulse Rate 70 67 95 H Respiratory Rate 16 20 20 Blood Pressure 140/74 127/68 Pulse Oximetry 96 98 95 06/01/18 08:00 06/01/18 08:52 Temperature 97.2 F L Pulse Rate 70 90 Respiratory Rate 16 16 Blood Pressure 128/60 Pulse Oximetry 98 96 Intake & Output 05/31/18 06/01/18 06/01/18 18:59 06:59 18:59 Intake Total 1000 / 1000 120 / 120 Output Total 450 / 450 Balance 1000 / 1000 -330 / -330 Weight 68.039 kg 70.3 kg Intake: IV 1000 / 1000 NS Inj 1,000 ML @ Wide Open IV. 1000 / 1000 SIG BOLUS ONE Rx#:[id number] Oral 120 / 120 Output: Urine 450 / 450 Other: Weight On Admission 69.5 kg Narrative: GENERAL: NAD, AAOx3 SKIN: Warm and dry. HEAD: Atraumatic. Normocephalic. EYES: Pupils equal and round. No scleral icterus. No injection or drainage. ENT: No nasal bleeding or discharge. Mucous membranes pink and moist. NECK: Trachea midline. No JVD. CARDIOVASCULAR: Regular rate and rhythm. RESPIRATORY: No accessory muscle use. Clear to auscultation. Breath sounds equal bilaterally. GASTROINTESTINAL: Abdomen soft, non-tender, nondistended. Hepatic and splenic margins not palpable. MUSCULOSKELETAL: Extremities without clubbing, cyanosis, or edema. No obvious deformities. NEUROLOGICAL: Awake and alert. No obvious cranial nerve deficits. Motor grossly within normal limits. Five out of 5 muscle strength in the arms and legs. Normal speech. PSYCHIATRIC: Appropriate mood and affect; insight and judgment normal. Assessment and Plan - Assessment (1) Carotid disease, bilateral Code(s): I77.9 - Disorder of arteries and arterioles, unspecified Status: Acute (2) Syncope Code(s): R55 - Syncope and collapse Status: Acute (3) Elevated troponin Code(s): R74.8 - Abnormal levels of other serum enzymes Status: Acute (4) Acute kidney injury superimposed on chronic kidney disease Code(s): N17.9 - Acute kidney failure, unspecified; N18.9 - Chronic kidney disease, unspecified Status: Acute (5) Pleural effusion Code(s): J90 - Pleural effusion, not elsewhere classified Status: Acute - Plan 1) Syncope Appears to be true syncope, second time it's happened Loop recorder placed 2) Carotid disease Not very elevated ratio, but will undergo MRI (ok with loop recorder) 3) Minimally elevated troponin Non-specific with kidney disease Previous cath, recommended medical management 4) Echo no change from previous 5) Restart Eliquis 6) Change Valsartan to Losartan (2) Syncope Qualifiers: Syncope type: unspecified Qualified Code(s): R55 - Syncope and collapse
--- NOTE | 2018-06-01 17:40 | MR ---
EXAM DATE: 06/01/2018 5:32 PM EDT AGE/SEX: 88 years / Male INDICATIONS: Stenosis. CLINICAL DATA: This is the patient's subsequent encounter. Patient reports that signs and symptoms h ave been present for 2 days and indicates a pain score of 0/10. MEDICAL/SURGICAL HISTORY: Diabetes. Hypertension. CABG. Loop recorder. Knee surgery. COMPARISON: No prior exams available for comparison. TECHNIQUE: 3D time-of- flight MRA of the extracranial circulation was performed using a neurovascul ar coil. Post processing was performed including rotating sub-volume maximum intensity projections o f each carotid artery, rotating full-volume maximum intensity projections of both carotid arteries, s agittal and coronal sliding thin-slab reformations of each carotid artery, and left oblique sliding t hin-slab reformation through the aortic arch to include the origin of the arch branch vessels. FINDINGS: Aortic Arch : There is a three-vessel origin of the great vessels from the aorta. No evidence of o stial narrowing. Right Carotid : Utilizing NASCET criteria there is a 50% stenosis of the ICA origin secondary to ath erosclerotic plaque. No discrete ulceration. The common carotid, remaining extracranial internal singletary tid, and external carotid are patent. Left Carotid : Utilizing NASCET criteria there is a 50% stenosis of the ICA origin secondary to athe rosclerotic plaque. No discrete ulceration. The common carotid, remaining extracranial internal carot id, and external carotid are patent.. Vertebrals : The vertebral arteries have a symmetric diameter. No stenotic lesions are seen. CONCLUSION: 1. Bilateral 50% stenoses involving the ICA origins. Vertebral arteries are patent. 2. Suspected right pleural effusion. Percent stenosis is calculated using the diameter of the stenotic region over the diameter of the nor mal distal internal carotid artery Electronically signed by: Papi Roldan MD 06/01/2018 5:38 PM EDT
--- NOTE | 2018-06-01 17:56 | MR ---
cc: David Loes DO DATE: 06/01/2018 PROCEDURE: Medtronic Reveal LINQ loop recorder placement (serial #[id number]) for syncope, moderate sedation 15 minutes PREOPERATIVE DIAGNOSIS: Syncopal episode, with a history of previous syncopal episode 1 year ago. POSTOPERATIVE DIAGNOSIS: Syncope status post placement of a Medtronic Reveal LINQ loop recorder. MEDICATIONS: Versed 1 mg, fentanyl 50 mcg, Ancef 2 g. ESTIMATED BLOOD LOSS: Minimal. PROCEDURAL SUMMARY: Collins Leone is a pleasant 88-year-old male, whom I see in the office and presented to [facility] Emergency Room after a syncopal episode. It appears the patient had a true syncopal episode where he fell forward, landing on his face. Because of this, as well as a previous syncopal episode 1 year ago, it was felt that it was reasonable to place a loop recorder for further evaluation for possible arrhythmias. Risks, benefits, and alternatives were explained to him and he consented to such. He was brought to the DOC Unit and prepped in a sterile fashion. A small incision less than 1 cm was made over the left sternal border around the 4th intercostal. A loop recorder was then injected under the tissue into the subcutaneous tissue. Pressure was held for hemostasis. The patient left the medical lab director cardiovascularly stable. IMPLANTED HARDWARE: Medtronic Reveal LINQ LNQ11 (serial #[id number]). R-wave amplitude 0.7 mV. Moderate sedation: 15 minutes IMPRESSION: 1. Syncopal episode, status post loop recorder placement. 2. Elevated troponin, nonspecific, due to [id number] kidney disease. RECOMMENDATIONS: 1. Mr. Leone underwent loop recorder placement with no complications. 2. He will be watched over the next few hours and if stable, can be discharged home at the discretion of the primary care team. 3. He had a repeat echocardiogram which showed no significant change from previous. 4. His valsartan will be changed to losartan due to the recall on valsartan. 5. No further recommendations are made from a cardiovascular standpoint. Thank you for allowing me to see Collins Leone. If there are any questions, please do not hesitate to call. David Leos DO VGP/rd , 03:59 PM , 04:09 PM MTDD
[2018-06-01] MEDS: Budesonide-Formoterol 160/4.5 MCG 6 GM Inhaler INH SCH ×2 (19:57→21:33)
--- NOTE | 2018-06-01 22:32 | ECG ---
Date Performed: 05/31/2018 Time Performed: 18:29:32 PTAGE: 88 years EKG: Sinus rhythm MODERATE INTRAVENTRICULAR CONDUCTION DELAY NONSPECIFIC T-WAVE ABNORMALITY ABNORMAL ECG PREVIOUS TRACING : 05/31/2018 12.07 Since the previous tracing, no significant change noted DOCTOR: Nishant Gibbs Interpretating Date/Time 06/01/2018 22:28:36
--- NOTE | 2018-06-01 22:45 | ECG ---
Date Performed: 05/31/2018 Time Performed: 12:07:04 PTAGE: 88 years EKG: Sinus rhythm WITH 2ND DEGREE AV BLOCK, MOBITZ TYPE II NONSPECIFIC T-WAVE ABNORMALITY ABNORMAL ECG NO PREVIOUS TRACING DOCTOR: Nishant Gibbs Interpretating Date/Time 06/01/2018 22:43:22
[2018-06-02] MEDS: Insulin NovoLOG Aspart Correctional Sugar Inj SQ SCH ×3 (05:06→13:20)
[2018-06-02] MEDS: Isosorbide Mononitrate 30 MG ER 24HR Tablet (Imdur) PO SCH (06:16)
[2018-06-02 08:49] VITALS: RESP 18
[2018-06-02] MEDS: Famotidine 20 MG Tablet PO SCH (09:08)
[2018-06-02] MEDS: Multivitamin/Minerals Therapeutic Tablet PO SCH (09:08)
[2018-06-02] MEDS: Insulin Detemir Inj 1,000 UNIT/10 ML Vial SQ SCH (09:08)
[2018-06-02] MEDS: guaiFENesin 600 MG ER Tablet PO SCH (09:08)
[2018-06-02] MEDS: Senna/Docusate Sodium 8.6/50 MG Tablet PO SCH (09:09)
[2018-06-02 12:06] VITALS: PULSE 64
[2018-06-02 12:34] VITALS: BP 109/57; TEMP 97.7; O2SAT 98
--- NOTE | 2018-06-02 13:08 | P.PNCA ---
Subjective Interval history: No events overnight Feels well Physical Exam Vital signs: Vital Signs 06/01/18 16:00 06/01/18 16:13 06/01/18 19:31 Temperature 98.5 F Pulse Rate 71 70 Respiratory Rate 16 Blood Pressure 138/63 Pulse Oximetry 97 96 06/01/18 20:00 06/02/18 00:00 06/02/18 04:00 Temperature 97.9 F 98.8 F 98.3 F Pulse Rate 72 66 66 Respiratory Rate 19 17 16 Blood Pressure 112/60 121/64 120/72 Pulse Oximetry 96 94 L 93 L 06/02/18 08:00 06/02/18 08:48 06/02/18 12:00 Temperature 98.1 F 97.7 F Pulse Rate 67 67 69 Respiratory Rate 17 18 18 Blood Pressure 131/64 109/57 L Pulse Oximetry 95 98 06/02/18 12:05 Temperature Pulse Rate 64 Respiratory Rate 18 Blood Pressure Pulse Oximetry Intake & Output 06/01/18 06/02/18 06/02/18 18:59 06:59 18:59 Intake Total 240 / 240 Balance 240 / 240 Weight 70.4 kg Intake: Oral 240 / 240 Other: # Voids 2 Narrative: GENERAL: NAD, AAOx3 SKIN: Warm and dry. HEAD: Atraumatic. Normocephalic. EYES: Pupils equal and round. No scleral icterus. No injection or drainage. ENT: No nasal bleeding or discharge. Mucous membranes pink and moist. NECK: Trachea midline. No JVD. CARDIOVASCULAR: Regular rate and rhythm. RESPIRATORY: No accessory muscle use. Clear to auscultation. Breath sounds equal bilaterally. GASTROINTESTINAL: Abdomen soft, non-tender, nondistended. Hepatic and splenic margins not palpable. MUSCULOSKELETAL: Extremities without clubbing, cyanosis, or edema. No obvious deformities. NEUROLOGICAL: Awake and alert. No obvious cranial nerve deficits. Motor grossly within normal limits. Five out of 5 muscle strength in the arms and legs. Normal speech. PSYCHIATRIC: Appropriate mood and affect; insight and judgment normal. Assessment and Plan - Assessment (1) Carotid disease, bilateral Code(s): I77.9 - Disorder of arteries and arterioles, unspecified Status: Acute (2) Syncope Code(s): R55 - Syncope and collapse Status: Acute (3) Elevated troponin Code(s): R74.8 - Abnormal levels of other serum enzymes Status: Acute (4) Acute kidney injury superimposed on chronic kidney disease Code(s): N17.9 - Acute kidney failure, unspecified; N18.9 - Chronic kidney disease, unspecified Status: Acute (5) Pleural effusion Code(s): J90 - Pleural effusion, not elsewhere classified Status: Acute - Plan 1) Syncope Appears to be true syncope, second time it's happened Loop recorder placed 2) Carotid disease Not very elevated ratio, but will undergo MRI (ok with loop recorder) Mild to moderate disease bilaterally 3) Minimally elevated troponin Non-specific with kidney disease Previous cath, recommended medical management 4) Echo no change from previous 5) Restart Eliquis 6) Change Valsartan to Losartan 7) No further cardiovascular work up, will see outpatient (2) Syncope Qualifiers: Syncope type: unspecified Qualified Code(s): R55 - Syncope and collapse
[2018-06-02] MEDS ORDERED: Sod Chloride 0.9% Inj 1,000 ML IV.CONT SCH (14:30)
--- NOTE | 2018-06-02 15:39 | P.PN ---
Subjective Interval history: no episodes of acute syncope here no complains of chest pain ro shortness of breath up and ambulating Physical Exam Vital signs: Vital Signs 06/01/18 16:00 06/01/18 16:13 06/01/18 19:31 Temperature 98.5 F Pulse Rate 71 70 Respiratory Rate 16 Blood Pressure 138/63 Pulse Oximetry 97 96 06/01/18 20:00 06/02/18 00:00 06/02/18 04:00 Temperature 97.9 F 98.8 F 98.3 F Pulse Rate 72 66 66 Respiratory Rate 19 17 16 Blood Pressure 112/60 121/64 120/72 Pulse Oximetry 96 94 L 93 L 06/02/18 08:00 06/02/18 08:48 06/02/18 12:00 Temperature 98.1 F 97.7 F Pulse Rate 67 67 69 Respiratory Rate 17 18 18 Blood Pressure 131/64 109/57 L Pulse Oximetry 95 98 06/02/18 12:05 Temperature Pulse Rate 64 Respiratory Rate 18 Blood Pressure Pulse Oximetry Intake & Output 06/01/18 06/02/18 06/02/18 18:59 06:59 18:59 Intake Total 240 / 240 Balance 240 / 240 Weight 70.4 kg Intake: Oral 240 / 240 Other: # Voids 2 Narrative: awake and alert, oriented c 3 speech clear,good sats at room air, up and ambulating anicteric no carotid bruit lungs- clear, slight decrease breath sounds left regular rhtyhm abdomen soft, nontendere xtrmeities no edema Results - Labs CBC & Chem 7: 06/01/18 07:33 05/31/18 23:27 Laboratory Results - last 24 hr 06/01/18 06/01/18 06/01/18 07:33 17:46 20:20 POC Glucose 266 H 372 H Hemoglobin A1c 9.0 H 06/02/18 06/02/18 06/02/18 05:01 07:42 12:18 POC Glucose 173 H 167 H 493 H* Hemoglobin A1c 06/02/18 12:22 POC Glucose 465 H* Hemoglobin A1c Microbiology 05/31/18 13:44 Clean Catch Urine Urine Culture - Final 50-100,000 cfu/mL mixed gram positive anahy (probable contaminants) - Imaging Impressions Neck MRA 06/01/18 00:00 CONCLUSION: 1. Bilateral 50% stenoses involving the ICA origins. Vertebral arteries are patent. 2. Suspected right pleural effusion. _ Percent stenosis is calculated using the diameter of the stenotic region over the diameter of the normal distal internal carotid artery _ Assessment and Plan - Plan 88 years old male Recurrent Syncopal episode Chronic atrial fibrillation on chronic anticoagulant History of AV noah ablation history of coronary artery disease and history of congestive heart failure monitor labs-continue on his [facility] cardiology ff Hypertension by history seen by cardiology and loop recorder was placed continue on Eliquis at home med0 change to Losartan per Cardiology CArotid stenosis on doppler - MRI carotids- 50% - d/w family- OP ff up yearly - diabetes mellituus - A1C - 9 continue on sliding scale coverage with Accu-Cheks before meals and at bedtime - d/w family- OP ff up with milling operator- Dr. Boyce - continue home meds hyperlipidemia Continue on his statin Pyuria- asymtpomatic - final culture no growth - DC rocephin CKI stage 3 - ff up with Dr. Henderson as OP COPD on chronic oxygen at bedtime and night bilateral Pleural effusion- asymptomatic - per patient has had it in the past - OP ff up CXR- repeat in 1 week Hypothyroidism continue on his levothyroxine DCc home today - ff up with PCP- [employer]- Dr. Tapia, also ff up [facility] ff up with Dr. Manning as OP
--- NOTE | 2018-06-02 16:38 | P.DS ---
Date of admission: 05/31/18 15:05 Primary care physician: Angelito Tapia MD Brief History from admission: Patient is a 88-year-old gentleman who was brought in with syncope. He has a past medical history of coronary artery disease, CABG, COPD, atrial fibrillation, chronic anticoagulation, insulin-dependent diabetes mellitus, hypertension, patient was brought in by EMS for evaluation of syncope. Patient states he was walking from his car to the doctor's office at the [place] [facility] when he suddenly felt slightly lightheaded and fell. He denies any head trauma or loss of consciousness. He denies any preceding chest pain or shortness of breath prior to this. He states that over the past few days he has had a slight aching pain to his that is 2 out of 10 on a scale of 1-10. Has some shortness of breath that is common for him due to his chronic COPD and oxygen dependent at night. He states that when he woke up this morning his fasting blood sugar was much higher than it normally is. Today it was in the 300s he states it is normally in the 100s. She states he took some extra insulin. He took Lantus 17 units of NovoLog 3 units with breakfast at 9 AM. He also took his glipizide and ate some breakfast. He denies any fever, he denies any chills , he denies any nausea, he denies any vomiting, he denies any diarrhea, he denies any constipation, denies any black stool, denies any bloody stools, denies any cough and any cold symptoms, denies any abdominal pain he has no real concerns was found to have a urinary tract infection. Will start on Rocephin and also found to have positive troponins for which we will consult cardiology Dr. Leos's group since that is who is seen him before previously. Patient is on 1 of the novel anticoagulants now for his atrial fibrillation. DS: Medications - Discharge Medications Prescriptions: losartan 50 mg PO DAILY #30 tab DS: Summary Hospital Course: 88 years old male Recurrent Syncopal episode Chronic atrial fibrillation on chronic anticoagulant History of AV noah ablation history of coronary artery disease and history of congestive heart failure monitor labs-continue on his amiodarone cardiology ff Hypertension by history seen by cardiology and loop recorder was placed continue on Eliquis at home med0 change to Losartan per Cardiology CArotid stenosis on doppler - MRI carotids- 50% - d/w family- OP ff up yearly - diabetes mellitus - A1C - 9 continue on sliding scale coverage with Accu-Cheks before meals and at bedtime - d/w family- OP ff up with extension course coordinator- Dr. Boyce - continue home meds hyperlipidemia Continue on his statin Pyuria- asymtpomatic - final culture no growth - DC rocephin CKI stage 3 - ff up with Dr. Henderson as OP COPD on chronic oxygen at bedtime and night bilateral Pleural effusion- asymptomatic - per patient has had it in the past - OP ff up CXR- repeat in 1 week Hypothyroidism continue on his levothyroxine DCc home today - ff up with PCP- [employer]- Dr. Tapia, also ff [facility] ff [facility] with Dr[facility] Manning as OP - Time Spent with Patient Total time spent providing and/or coordinating discharge services: Greater than 30 minutes - Quality: VTE Deep Vein Thrombosis/Pulmonary Embolism Present on Admission: No Exam Vital signs: Vital Signs 06/01/18 19:31 06/01/18 20:00 06/02/18 00:00 Temperature 97.9 F 98.8 F Pulse Rate 72 66 Respiratory Rate 19 17 Blood Pressure 112/60 121/64 Pulse Oximetry 96 96 94 L 06/02/18 04:00 06/02/18 08:00 06/02/18 08:48 Temperature 98.3 F 98.1 F Pulse Rate 66 67 67 Respiratory Rate 16 17 18 Blood Pressure 120/72 131/64 Pulse Oximetry 93 L 95 06/02/18 12:00 06/02/18 12:05 Temperature 97.7 F Pulse Rate 69 64 Respiratory Rate 18 18 Blood Pressure 109/57 L Pulse Oximetry 98 Intake & Output 06/01/18 06/02/18 06/02/18 18:59 06:59 18:59 Intake Total 100 / 100 240 / 240 Balance 100 / 100 240 / 240 Weight 70.4 kg Intake: IV 100 / 100 Rocephin Inj 1,000 MG In NS Inj 100 / 100 100 ML @ 200 mls/hr IV.SIG Q24H LEANNE Rx#:[id number] Oral 240 / 240 Other: # Voids 2 Results Procedures completed during hospitalization: loop recorder Labs on day of discharge: Labs from last 24 hours 06/02/18 06/02/18 06/02/18 12:22 12:18 07:42 POC Glucose 465 H* 493 H* 167 H Hemoglobin A1c 06/02/18 06/01/18 06/01/18 05:01 20:20 17:46 POC Glucose 173 H 372 H 266 H Hemoglobin A1c 06/01/18 07:33 POC Glucose Hemoglobin A1c 9.0 H - Impressions ITS Impressions Carotid Doppler Study 05/31/18 00:00 CONCLUSION: Extensive bilateral carotid plaque formation especially around the bifurcations. Elevated PSV ratio on the right. Cannot exclude a significant stenosis. This would be better evaluated with CTA. Chest X-Ray 05/31/18 12:14 CONCLUSION: 1. Bilateral pleural effusions greater on the left. 2. Left basilar density 3. CT chest may be warranted. Head CT 05/31/18 12:14 CONCLUSION: 1. Cerebral atrophy without acute intracranial abnormality. 2. No acute hemorrhage . Chest CT 05/31/18 13:20 CONCLUSION: 1. Bilateral pleural effusions, greater on the right. 2. Parenchymal density right upper lobe could be infectious or inflammatory. 3. Status post CABG. Neck MRA 06/01/18 00:00 CONCLUSION: 1. Bilateral 50% stenoses involving the ICA origins. Vertebral arteries are patent. 2. Suspected right pleural effusion. _ Percent stenosis is calculated using the diameter of the stenotic region over the diameter of the normal distal internal carotid artery _ Discharge Plan - Discharge Disposition Patient Disposition: 01 Discharge Home - Discharge Condition Condition: Stable - Discharge Order Discharge Orders: Discharge Order (Routine); Ordered 06/02/18 Ordered By: Luana Silverman - Discharge Details Anticipated Discharge Date: 06/02/18 - Physicians Team Primary Care Provider: Angelito Tapia Attending Provider: Luana Silverman Other Providers: David Leos DO ; Savita Barney
== END 2018-06-02 16:55 | disposition home or self-care (01) ==
LOC: NEPC 11:48 → NEDA 15:05 → N04 19:27
PROVIDERS: ADMIT Internal Medicine; ATTEND Internal Medicine